=== PATIENT | male | born 1935 | race Two or more races ===

== ENCOUNTER 2017-09-04 15:11 | Inpatient (IN) | payer OTHER, MEDICARE ==
[~2017-09-04] VITALS: Ht 172.7 cm; Wt 98.0 kg
[~2017-09-04 15:11] MED LIST: FUROSEMIDE20 M1 ORAL; METFORMIN HCL500 M1 ORAL; TAMSULOSIN HCL0.4 MG ORAL
--- NOTE | 2017-09-04 15:18 | Emergency Room Report ---
History of Present Illness General Chief Complaint: Chest Pain Source: Patient Present Illness HPI Patient is a 82-year-old male who presented after increased chest discomfort. Patient had gradual onset of symptoms. Patient had reportedly had intermittent chest pain. This had been present for approximately one week. Patient prior history of coronary artery disease as well as CABG and congestive heart failure. He reportedly takes diuretics. The patient been under treatment with antibiotics for a left foot infection.Patient was noted to have recent hospitalization for influenza at [facility] and had been hospitalized for approximately one week on BiPAP. The patient been noted to have increased leg swelling since hospitalization. He had recently been started on Lasix. Patient had been on antibiotics while hospitalized and had subsequently been given doxycycline after podiatry noticed a wound to his left leg. Allergies: Coded Allergies: No Known Allergies (Unverified , 09/04/17) Patient History Past Medical History: see triage record Reviewed Nursing Documentation: PMH: Agreed, PSxH: Agreed Nursing Documentation-PM Past Medical History: No Stated History Hx Diabetes: Yes Review of Systems All Other Systems: negative except mentioned in HPI Physical Exam Vital Signs Date Time Temp Pulse Resp B/P (MAP) Pulse Ox O2 Delivery O2 Flow Rate FiO2 09/04/17 15:07 98.1 63 18 101/52 96 Room Air Sp02 EP Interpretation: reviewed, normal General Appearance: normal inspection, well appearing, no apparent distress, alert, GCS 15 Head: atraumatic ENT: normal ENT inspection, hearing grossly normal, normal voice Neck: normal inspection, full range of motion, supple, no bony tend Respiratory: normal inspection, no retraction, rales Cardiovascular #1: irregularly irregular, edema - 3+ edema Gastrointestinal: normal inspection, normal bowel sounds, non tender, soft, no guarding, no hernia Genitourinary: no CVA tenderness Musculoskeletal: normal inspection, back normal, normal range of motion Neurologic: normal inspection, alert, oriented x3, responsive, executive producer promos III-XII nml as tested, speech normal Psychiatric: normal inspection, judgement/insight normal, mood/affect normal Skin: normal color, no rash, other - erythema to left leg Medical Decision Making Diagnostic Impression: Primary Impression: Chest pain Additional Impressions: CHF (congestive heart failure) Left leg cellulitis Venous stasis ulcer ER Course Patient presented for chest pain. Differential diagnosis included but was not limited to acute coronary syndrome, pulmonary embolism, pneumonia, aortic dissection, shingles, pneumothorax, aortic dissection, esophageal rupture, pericarditis. Because of complexity of patient's case laboratory testing and imaging studies were ordered.The patient given aspirin by EMS. The patient denies any current chest pain. He was noted to have increased work of breathing. EKG interpreted by me showed atrial fibrillation with a rate of [address] changes. There is noted to be some nonspecific ST changes consistent with dig effectThe patient was given IV diuretics for presumed congestive heart failure. Laboratory testing showed negative troponin as well as a markedly elevated BNP. Patient noted have borderline blood pressure. The patient was given IV Lasix with some improvement. Patient was discussed with Dr. Murray for Dr. Mckeon for inpatient management. Labs Test 09/04/17 15:25 White Blood Count 5.0 K/UL (4.8-10.8) Red Blood Count 4.10 M/UL (4.70-6.10) Hemoglobin 12.3 G/DL (14.2-18.0) Hematocrit 38.5 % (42.0-52.0) Mean Corpuscular Volume 94 FL (80-99) Mean Corpuscular Hemoglobin 30.0 PG (27.0-31.0) Mean Corpuscular Hemoglobin Concent 32.0 G/DL (32.0-36.0) Red Cell Distribution Width 13.6 % (11.6-14.8) Platelet Count 107 K/UL (150-450) Mean Platelet Volume 6.5 FL (6.5-10.1) Neutrophils (%) (Auto) 65.7 % (45.0-75.0) Lymphocytes (%) (Auto) 20.0 % (20.0-45.0) Monocytes (%) (Auto) 10.6 % (1.0-10.0) Eosinophils (%) (Auto) 3.2 % (0.0-3.0) Basophils (%) (Auto) 0.5 % (0.0-2.0) Sodium Level 137 MMOL/L (136-145) Potassium Level 5.2 MMOL/L (3.5-5.1) Chloride Level 98 MMOL/L (98-107) Carbon Dioxide Level 32 MMOL/L (21-32) Anion Gap 7 mmol/L (5-15) Blood Urea Nitrogen 53 mg/dL (7-18) Creatinine 1.9 MG/DL (0.55-1.30) Estimat Glomerular Filtration Rate mL/min (>60) Glucose Level 107 MG/DL (74-106) Calcium Level 8.5 MG/DL (8.5-10.1) Total Bilirubin 0.4 MG/DL (0.2-1.0) Aspartate Amino Transf (AST/SGOT) 16 U/L (15-37) Alanine Aminotransferase (ALT/SGPT) 18 U/L (12-78) Alkaline Phosphatase 86 U/L (46-116) Total Creatine Kinase 29 U/L (26-308) Creatine Kinase MB 0.9 NG/ML (0.0-3.6) Creatine Kinase MB Relative Index 3.1 Troponin I 0.016 ng/mL (0.000-0.056) Pro-B-Type Natriuretic Peptide 3780 pg/mL (0-125) Total Protein 7.2 G/DL (6.4-8.2) Albumin 3.4 G/DL (3.4-5.0) Globulin 3.8 g/dL Albumin/Globulin Ratio 0.9 (1.0-2.7) Digoxin Level 1.9 NG/ML (0.5-2.0) Last Vital Signs Date Time Temp Pulse Resp B/P (MAP) Pulse Ox O2 Delivery O2 Flow Rate FiO2 09/04/17 15:07 98.1 63 18 101/52 96 Room Air Status: unchanged Disposition: ADMITTED INPATIENT Condition: Stable David Bledsoe Sep 04, 2017 15:18
[2017-09-04] MEDS ORDERED: Ascorbic Acid 500mg tab ORAL SCH (15:30)
[2017-09-04 15:37] LABS: BASOPHILS % (AUTO) 0.5 % (0.0-2.0); EOSINOPHILS % (AUTO) 3.2 % (0.0-3.0); HEMATOCRIT 38.5 % (42.0-52.0); HEMOGLOBIN 12.3 G/DL (14.2-18.0); MEAN CORPUSCULAR VOLUME 94 FL (80-99); MONOCYTES % (AUTO) 10.6 % (1.0-10.0); NEUTROPHILS % (AUTO) 65.7 % (45.0-75.0); PLATELET COUNT 107 K/UL (150-450); RED CELL DISTRIBUTION WIDTH 13.6 % (11.6-14.8)
[2017-09-04 16:00] VITALS: BP 94/52
[2017-09-04 16:14] LABS: ANION GAP 7 mmol/L (5-15); BLOOD UREA NITROGEN 53 mg/dL (7-18); CALCIUM 8.5 MG/DL (8.5-10.1); CARBON DIOXIDE 32 MMOL/L (21-32); CHLORIDE 98 MMOL/L (98-107); CREATININE 1.9 MG/DL (0.55-1.30); POTASSIUM 5.2 MMOL/L (3.5-5.1); SODIUM 137 MMOL/L (136-145)
[2017-09-04 16:30] VITALS: BP 95/63
[2017-09-04 16:34] LABS: ALANINE AMINOTRANSFERASE 18 U/L (12-78); ALBUMIN 3.4 G/DL (3.4-5.0); ALBUMIN/GLOBULIN RATIO 0.9 (1.0-2.7); ALKALINE PHOSPHATASE 86 U/L (46-116); ASPARTATE AMINO TRANSFERASE 16 U/L (15-37); BILIRUBIN,TOTAL 0.4 MG/DL (0.2-1.0); CKMB 0.9 NG/ML (0.0-3.6); CREATINE KINASE 29 U/L (26-308)
[2017-09-04 18:42] VITALS: BP 100/78
[2017-09-04] MEDS ORDERED: AMITIZA24 MCG ORAL (18:56)
[2017-09-04] MEDS ORDERED: traMADol 50mg tab ORAL PRN (20:00)
[2017-09-04] MEDS ORDERED: Albuterol/Ipratropium 3ml neb HHN PRN (20:00)
[2017-09-04] MEDS ORDERED: Miralax 17gm pkt ORAL PRN (20:00)
[2017-09-04] MEDS ORDERED: Mylanta II UD 30ml ORAL PRN (20:00)
--- NOTE | 2017-09-04 20:35 | History and Physical ---
History of Present Illness General Date patient seen: Sep 04, 2017 Reason for Hospitalization: Chest Pain Present Illness HPI This is a 82 year old male with past medical history of chronic afib, CAD s/p CABG, HTN, DM, HLD, recent influenza infection presents with chest pain and worsening bilateral lower extremity redness and swelling. States pain is substernal and associated with shortness of breath. patient was recently hospitalized at [facility] 08/10/17-08/19/17 with influenza infection and respiratory failure, requiring intubation. patient with blistering of left foot, seen by podiatry yesterday and started on antibiotics. Notes worsening edema of the left foot > right with significant pain. No fevers, chills, nausea, vomiting or abdominal pain. Of note, patient underwent LHC in 04/2017 showinSevere atherosclerotic heart disease. A: Complete occlusion of the left anterior descending. B: Complete occlusion of the proximal circumflex coronary artery. C: Complete occlusion of the proximal right coronary artery. Graft angiography:. A-Widely patent left internal mammary graft to the left anterior descending. B: Widely patent saphenous vein graft to the posterior descending coronary artery. C: Widely patent saphenous vein graft to the obtuse marginal branch of the left circumflex coronary artery. D: Very small grafts to a small diagonal were also identified Home medication per [facility] record: HOME MEDICATIONS: Current Outpatient Prescriptions Medication Sig olmesartan (BENICAR) 5 mg oral tablet Take 1 tablet by mouth daily. fluticasone-salmeterol (ADVAIR) 250-50 mcg/dose powder for inhalation Inhale 1 puff 2 times daily. guaiFENesin (MUCINEX) 600 mg Ta12 SR tablet Take 1 tablet by mouth 2 times daily. METOprolol (LOPRESSOR) 25 mg oral tablet Take 1 tablet by mouth 2 times daily (with meals). ibuprofen (MOTRIN) 600 mg oral tablet Take 1 tablet by mouth 3 times daily. Take with food. LUBIPROSTONE (AMITIZA PO) DUTASTERIDE (AVODART PO) TAMSULOSIN HCL (FLOMAX PO) dabigatran etexilate (PRADAXA) 150 mg oral cap Take 150 mg by mouth 2 times daily. digoxin (LANOXIN) 250 mcg oral tablet Take 250 mcg by mouth daily. aspirin (ECOTRIN) 81 mg EC tablet Take 81 mg by mouth daily. meloxicam (MOBIC) 15 mg oral tablet Take 15 mg by mouth daily. rosuvastatin (CRESTOR) 5 mg oral tablet Take 5 mg by mouth daily. metFORMIN (GLUCOPHAGE XR) 750 mg XR tablet Take 750 mg by mouth daily. Take with meals. liraglutide 0.6 mg/0.1 mL (18 mg/3 mL) PnIj sitaGLIPtin (JANUVIA) 100 mg oral tablet Take 100 mg by mouth daily. gabapentin (NEURONTIN) 300 mg capsule Take 300 mg by mouth 3 times daily. HYDROcodone-acetaminophen 10-325 mg (NORCO) 10-325 mg oral tablet Take 1 tablet by mouth every 6 hours as needed. DULoxetine (CYMBALTA) [address] capsule Take 60 mg by mouth daily. escitalopram oxalate (LEXAPRO) 20 mg oral tablet Take 20 mg by mouth daily. zolpidem (AMBIEN) 10 mg oral tablet Take 10 mg by mouth nightly. tadalafil (CIALIS) 20 mg oral tablet Take 20 mg by mouth once as needed for Erectile Dysfunction. POLYETHYLENE GLYCOL 3350 (DULCOLAX BALANCE PO) Allergies: Coded Allergies: No Known Allergies (Unverified , 09/04/17) Medication History Scheduled Furosemide* (Lasix*), 20 MG ORAL DAILY, (Reported) Metformin Hcl* (Metformin Hcl*), 500 MG ORAL TWICE A DAY, (Reported) Tamsulosin Hcl (Tamsulosin Hcl*), 0.4 MG ORAL BEDTIME, (Reported) Scheduled PRN Lubiprostone (Amitiza*), 24 MCG ORAL DAILY PRN for Constipation, (Reported) Patient History Healthcare decision maker Resuscitation status Advanced Directive on File Review of Systems All Other Systems: negative except mentioned in HPI Physical Exam General Appearance: no apparent distress, lethargic, overweight HEENT: normocephalic, EOMI Respiratory/Chest: accessory muscle use, crackles/rales Cardiovascular/Chest: normal rate, regular rhythm, regularly irregular, JVD, irregularly irregular Abdomen: non tender - left lef with erythemtous lesion, with some discharge, soft, hypoactive bowel sounds Extremities: moderate edema, pitting Skin Exam: rash Neurologic: no motor/sensory deficits, alert, oriented x 3 Last 24 Hour Vital Signs Date Time Temp Pulse Resp B/P (MAP) Pulse Ox O2 Delivery O2 Flow Rate FiO2 09/04/17 18:42 97.9 59 19 100/78 98 Room Air 09/04/17 16:30 62 20 95/63 97 Room Air 09/04/17 16:00 98.4 62 21 94/52 93 Room Air 09/04/17 15:30 62 19 Room Air 09/04/17 15:07 98.1 63 18 101/52 96 Room Air Laboratory Tests Test 09/04/17 15:25 White Blood Count 5.0 K/UL (4.8-10.8) Red Blood Count 4.10 M/UL (4.70-6.10) L Hemoglobin 12.3 G/DL (14.2-18.0) L Hematocrit 38.5 % (42.0-52.0) L Mean Corpuscular Volume 94 FL (80-99) Mean Corpuscular Hemoglobin 30.0 PG (27.0-31.0) Mean Corpuscular Hemoglobin Concent 32.0 G/DL (32.0-36.0) Red Cell Distribution Width 13.6 % (11.6-14.8) Platelet Count 107 K/UL (150-450) L Mean Platelet Volume 6.5 FL (6.5-10.1) Neutrophils (%) (Auto) 65.7 % (45.0-75.0) Lymphocytes (%) (Auto) 20.0 % (20.0-45.0) Monocytes (%) (Auto) 10.6 % (1.0-10.0) H Eosinophils (%) (Auto) 3.2 % (0.0-3.0) H Basophils (%) (Auto) 0.5 % (0.0-2.0) Sodium Level 137 MMOL/L (136-145) Potassium Level 5.2 MMOL/L (3.5-5.1) H Chloride Level 98 MMOL/L (98-107) Carbon Dioxide Level 32 MMOL/L (21-32) Anion Gap 7 mmol/L (5-15) Blood Urea Nitrogen 53 mg/dL (7-18) H Creatinine 1.9 MG/DL (0.55-1.30) H Estimat Glomerular Filtration Rate mL/min (>60) Glucose Level 107 MG/DL (74-106) H Calcium Level 8.5 MG/DL (8.5-10.1) Total Bilirubin 0.4 MG/DL (0.2-1.0) Aspartate Amino Transf (AST/SGOT) 16 U/L (15-37) Alanine Aminotransferase (ALT/SGPT) 18 U/L (12-78) Alkaline Phosphatase 86 U/L (46-116) Total Creatine Kinase 29 U/L (26-308) Creatine Kinase MB 0.9 NG/ML (0.0-3.6) Creatine Kinase MB Relative Index 3.1 Troponin I 0.016 ng/mL (0.000-0.056) Pro-B-Type Natriuretic Peptide 3780 pg/mL (0-125) H Total Protein 7.2 G/DL (6.4-8.2) Albumin 3.4 G/DL (3.4-5.0) Globulin 3.8 g/dL Albumin/Globulin Ratio 0.9 (1.0-2.7) L Digoxin Level 1.9 NG/ML (0.5-2.0) Height (Feet): 5 Height (Inches): 9.00 Weight (Pounds): 180 Medications Current Medications Medications (Trade) Dose Ordered Sig/Sara Route PRN Reason Start Time Stop Time Status Last Admin Dose Admin Acetaminophen (Tylenol) 650 mg Q4H PRN ORAL Mild Pain (Pain Scale 1-3) 09/04/17 20:00 10/04/17 19:59 Al Hydroxide/Mg Hydroxide (Mylanta II) 30 ml Q6H PRN ORAL dyspepsia 09/04/17 20:00 10/04/17 19:59 Albuterol/ Ipratropium (Albuterol/ Ipratropium) 3 ml Q4H PRN HHN Shortness of Breath 09/04/17 20:00 09/09/17 19:59 Dextrose (Dextrose 50%) STAT PRN IV Hypoglycemia 09/04/17 20:00 10/04/17 19:59 Docusate Sodium (Colace) 100 mg EVERY 12 HOURS ORAL 09/04/17 21:00 10/04/17 20:59 Furosemide (Lasix) 20 mg EVERY 12 HOURS IV 09/04/17 21:00 10/04/17 20:59 Heparin Sodium (Porcine) (Heparin 5000 units/ml) 5,000 units EVERY 12 HOURS SUBQ 09/04/17 21:00 10/04/17 20:59 Insulin Aspart (NovoLOG) BEFORE MEALS AND HS SUBQ 09/04/17 21:00 10/04/17 20:59 UNV Ondansetron HCl (Zofran) 4 mg Q6H PRN IVP Nausea & Vomiting 09/04/17 20:00 10/04/17 19:59 Polyethylene Glycol (Miralax) 17 gm DAILYPRN PRN ORAL Constipation 09/04/17 20:00 10/04/17 19:59 Tamsulosin HCl (Flomax) 0.4 mg BEDTIME ORAL 09/04/17 21:00 10/04/17 20:59 Tramadol HCl (Ultram) 50 mg Q4H PRN ORAL pain 4-10 09/04/17 20:00 09/11/17 19:59 Vancomycin HCl (Vanco rx to dose) 1 ea DAILY PRN MISC Per rx protocol 09/04/17 20:00 10/04/17 19:59 UNV Assessment/Plan Assessment/Plan # acute on chronic CHF #lower extremity cellulitis # chest pain #DM # HLD #HTN now presenting with hypotension #Obesity - admit inpatient - tele - serial trop - vancomycin - lasix 20mg IV daily - strict I&Os - daily weights - cardiology consulted - 2d echo - ID consult - blood cx - monitor blood glucose level - ISS - diabetic cardiac diet - hold antihypertensives - heparin subq Chase Murray M.D. Sep 04, 2017 20:35
[2017-09-04 21:15] VITALS: BP 87/55
[2017-09-04] MEDS ORDERED: Vancomycin 1.5 GM/D5W 250ML IVPB ONE (22:00)
[2017-09-04] MEDS: Tamsulosin 0.4mg cap ORAL SCH (22:46)
[2017-09-04] MEDS: Docusate 100mg cap ORAL SCH (22:46)
[2017-09-04] MEDS: NovoLOG Insulin Flexpen SUBQ SCH (22:52)
[2017-09-04] MEDS: Heparin 5000 units/ml inj SUBQ SCH (22:52)
[2017-09-05] VITALS: BP 84/46
[2017-09-05 04:23] VITALS: BP 82/40
[2017-09-05] MEDS: NovoLOG Insulin Flexpen SUBQ SCH ×4 (06:26→23:37)
[2017-09-05 08:00] VITALS: BP 82/45
[2017-09-05] MEDS: Heparin 5000 units/ml inj SUBQ SCH (09:00)
[2017-09-05] MEDS: Docusate 100mg cap ORAL SCH ×2 (09:10→23:40)
--- NOTE | 2017-09-05 09:33 | Diagnostic Imaging Report ---
Indication: Reason For Exam: SOB. Technique: XRAY Chest 1v. Comparison: None Findings: The heart is normal in size. Linear density is noted in the left upper lung. The remainder the lungs are clear. No pleural fluid. There is atherosclerotic change of the aorta. The bones are unremarkable. Impression: Atherosclerotic change. Scarring or atelectasis in the left upper lung. Otherwise negative.
[2017-09-05 10:59] LABS: HEMOGLOBIN 11.1 G/DL (14.2-18.0); MEAN CORPUSCULAR VOLUME 94 FL (80-99); PLATELET COUNT 97 K/UL (150-450); RED BLOOD COUNT 3.72 M/UL (4.70-6.10); RED CELL DISTRIBUTION WIDTH 13.7 % (11.6-14.8); WHITE BLOOD COUNT 3.8 K/UL (4.8-10.8)
[2017-09-05 11:27] LABS: ANION GAP 3 mmol/L (5-15); BLOOD UREA NITROGEN 48 mg/dL (7-18); CALCIUM 8.3 MG/DL (8.5-10.1); CARBON DIOXIDE 34 MMOL/L (21-32); CHLORIDE 100 MMOL/L (98-107); CHOLESTEROL 110 MG/DL (< 200); CREATININE 1.5 MG/DL (0.55-1.30); HDL CHOLESTEROL 41 MG/DL (40-60); SODIUM 137 MMOL/L (136-145); TRIGLYCERIDES 90 MG/DL (30-150)
[2017-09-05 12:00] VITALS: BP 109/78
--- NOTE | 2017-09-05 12:19 | Consultation ---
Consult Note Consult Note asked to evalfor high BUN and Cr Patient is a 82-year-old male who presented after increased chest discomfort. Patient had gradual onset of symptoms. Patient had reportedly had intermittent chest pain. This had been present for approximately one week. Patient prior history of coronary artery disease as well as CABG and congestive heart failure. He reportedly takes diuretics. The patient been under treatment with antibiotics for a left foot infection.Patient was noted to have recent hospitalization for influenza at [facility] and had been hospitalized for approximately one week on BiPAP. The patient been noted to have increased leg swelling since hospitalization. He had recently been started on Lasix. Patient had been on antibiotics while hospitalized and had subsequently been given doxycycline after podiatry noticed a wound to his left leg. admitted with the diagnosis of: Chest pain CHF (congestive heart failure) Left leg cellulitis Venous stasis ulcer seen interviewed examined data reviewed Assessment/Plan Renal failure, likely pre Renal Acute on chronic CHF Atrial Fib with slow Vent rate Lower extremity cellulitis Chest pain DM HLD HTN now presenting with hypotension Obesity Plan: Optimize cardiac and pulmonary status monitor renal parameters and lytes avoid nephrotoxics BRIAN SIFUENTES Sep 05, 2017 12:19
--- NOTE | 2017-09-05 13:18 | Cardiac Electrophysiology PN ---
Subjective Subjective Fib, CP, CHF, CABG. Cellulitis Dictated [id number] Objective Last 24 Hour Vital Signs Date Time Temp Pulse Resp B/P (MAP) Pulse Ox O2 Delivery O2 Flow Rate FiO2 09/05/17 08:00 97.6 70 19 82/45 98 Nasal Cannula 2.0 09/05/17 04:23 96.8 68 18 82/40 94 Nasal Cannula 09/05/17 04:00 55 09/05/17 00:00 53 09/05/17 00:00 96.8 58 18 84/46 100 Room Air 09/04/17 21:18 60 09/04/17 21:15 97.0 61 22 87/55 99 Room Air 21 09/04/17 21:00 58 22 86/46 98 Room Air 09/04/17 18:42 97.9 59 19 100/78 98 Room Air 09/04/17 16:30 62 20 95/63 97 Room Air 09/04/17 16:00 98.4 62 21 94/52 93 Room Air 09/04/17 15:30 62 19 Room Air 09/04/17 15:07 98.1 63 18 101/52 96 Room Air Intake and Output 09/04/17 09/05/17 19:00 07:00 Intake Total 250 ml Output Total 600 ml 725 ml Balance -600 ml -475 ml Intake IV Total 250 ml Output Urine Total 600 ml 725 ml # Voids 4 6 Laboratory Tests Test 09/04/17 15:25 09/05/17 09:10 White Blood Count 5.0 K/UL (4.8-10.8) 3.8 K/UL (4.8-10.8) L Red Blood Count 4.10 M/UL (4.70-6.10) L 3.72 M/UL (4.70-6.10) L Hemoglobin 12.3 G/DL (14.2-18.0) L 11.1 G/DL (14.2-18.0) L Hematocrit 38.5 % (42.0-52.0) L 35.0 % (42.0-52.0) L Mean Corpuscular Volume 94 FL (80-99) 94 FL (80-99) Mean Corpuscular Hemoglobin 30.0 PG (27.0-31.0) 29.8 PG (27.0-31.0) Mean Corpuscular Hemoglobin Concent 32.0 G/DL (32.0-36.0) 31.7 G/DL (32.0-36.0) L Red Cell Distribution Width 13.6 % (11.6-14.8) 13.7 % (11.6-14.8) Platelet Count 107 K/UL (150-450) L 97 K/UL (150-450) L Mean Platelet Volume 6.5 FL (6.5-10.1) 7.2 FL (6.5-10.1) Neutrophils (%) (Auto) 65.7 % (45.0-75.0) % (45.0-75.0) Lymphocytes (%) (Auto) 20.0 % (20.0-45.0) % (20.0-45.0) Monocytes (%) (Auto) 10.6 % (1.0-10.0) H % (1.0-10.0) Eosinophils (%) (Auto) 3.2 % (0.0-3.0) H % (0.0-3.0) Basophils (%) (Auto) 0.5 % (0.0-2.0) % (0.0-2.0) Sodium Level 137 MMOL/L (136-145) 137 MMOL/L (136-145) Potassium Level 5.2 MMOL/L (3.5-5.1) H 5.0 MMOL/L (3.5-5.1) Chloride Level 98 MMOL/L (98-107) 100 MMOL/L (98-107) Carbon Dioxide Level 32 MMOL/L (21-32) 34 MMOL/L (21-32) H Anion Gap 7 mmol/L (5-15) 3 mmol/L (5-15) L Blood Urea Nitrogen 53 mg/dL (7-18) H 48 mg/dL (7-18) H Creatinine 1.9 MG/DL (0.55-1.30) H 1.5 MG/DL (0.55-1.30) H Estimat Glomerular Filtration Rate mL/min (>60) mL/min (>60) Glucose Level 107 MG/DL (74-106) H 127 MG/DL (74-106) H Calcium Level 8.5 MG/DL (8.5-10.1) 8.3 MG/DL (8.5-10.1) L Total Bilirubin 0.4 MG/DL (0.2-1.0) Aspartate Amino Transf (AST/SGOT) 16 U/L (15-37) Alanine Aminotransferase (ALT/SGPT) 18 U/L (12-78) Alkaline Phosphatase 86 U/L (46-116) Total Creatine Kinase 29 U/L (26-308) Creatine Kinase MB 0.9 NG/ML (0.0-3.6) Creatine Kinase MB Relative Index 3.1 Troponin I 0.016 ng/mL (0.000-0.056) 0.016 ng/mL (0.000-0.056) Pro-B-Type Natriuretic Peptide 3780 pg/mL (0-125) H Total Protein 7.2 G/DL (6.4-8.2) Albumin 3.4 G/DL (3.4-5.0) Globulin 3.8 g/dL Albumin/Globulin Ratio 0.9 (1.0-2.7) L Digoxin Level 1.9 NG/ML (0.5-2.0) Differential Total Cells Counted 100 Neutrophils % (Manual) 58 % (45-75) Lymphocytes % (Manual) 25 % (20-45) Monocytes % (Manual) 12 % (1-10) H Eosinophils % (Manual) 5 % (0-3) H Basophils % (Manual) 0 % (0-2) Band Neutrophils 0 % (0-8) Platelet Estimate Decreased L Platelet Morphology Normal Hypochromasia 1+ Anisocytosis 1+ Hemoglobin A1c 6.2 % (4.3-6.0) H Magnesium Level 1.7 MG/DL (1.8-2.4) L Triglycerides Level 90 MG/DL (30-150) Cholesterol Level 110 MG/DL (< 200) LDL Cholesterol 66 mg/dL (<100) HDL Cholesterol 41 MG/DL (40-60) Cholesterol/HDL Ratio 2.7 (3.3-4.4) L Thyroid Stimulating Hormone (TSH) 0.629 uiU/mL (0.358-3.740) LUIS MANUEL PATHAK Sep 05, 2017 13:18
[2017-09-05 15:20] LABS: APPEARANCE,URINE CLEAR; BILIRUBIN, URINE NEGATIVE (NEGATIVE); COLOR,URINE PALE YELLOW; GLUCOSE, URINE (UA) NEGATIVE (NEGATIVE); KETONES,URINE NEGATIVE (NEGATIVE); LEUKOCYTE ESTERASE ,URINE NEGATIVE (NEGATIVE); NITRITE,URINE NEGATIVE (NEGATIVE); PH,URINE 6 (4.5-8.0); PROTEIN,URINE NEGATIVE (NEGATIVE); UROBILINOGEN,URINE NORMAL MG/DL (0.0-1.0)
[2017-09-05 16:00] VITALS: BP 106/51
--- NOTE | 2017-09-05 17:28 | Infectious Diseases Prog Note ---
Assessment/Plan Assessment/Plan Full consult dictated: A) 1) left leg cellulitis, ? infected leg ankle wound, ? osteo 2) edema 3) pmh noted 4) allergies - negative P) 1) vancomycin and cefepime 2) check wc, sr, labs and x-ray 3) thanks Subjective Allergies: Coded Allergies: No Known Allergies (Unverified , 09/04/17) Objective Vital Signs Last 24 Hour Vital Signs Date Time Temp Pulse Resp B/P (MAP) Pulse Ox O2 Delivery O2 Flow Rate FiO2 09/05/17 12:00 97.8 85 19 109/78 97 Nasal Cannula 2.0 09/05/17 12:00 75 09/05/17 08:00 81 09/05/17 08:00 97.6 70 19 82/45 98 Nasal Cannula 2.0 09/05/17 04:23 96.8 68 18 82/40 94 Nasal Cannula 09/05/17 04:00 55 09/05/17 00:00 53 09/05/17 00:00 96.8 58 18 84/46 100 Room Air 09/04/17 21:18 60 09/04/17 21:15 97.0 61 22 87/55 99 Room Air 21 09/04/17 21:00 58 22 86/46 98 Room Air 09/04/17 18:42 97.9 59 19 100/78 98 Room Air Height (Feet): 5 Height (Inches): 8.00 Weight (Pounds): 216 Laboratory Tests Test 09/05/17 09:10 09/05/17 12:20 White Blood Count 3.8 K/UL (4.8-10.8) L Red Blood Count 3.72 M/UL (4.70-6.10) L Hemoglobin 11.1 G/DL (14.2-18.0) L Hematocrit 35.0 % (42.0-52.0) L Mean Corpuscular Volume 94 FL (80-99) Mean Corpuscular Hemoglobin 29.8 PG (27.0-31.0) Mean Corpuscular Hemoglobin Concent 31.7 G/DL (32.0-36.0) L Red Cell Distribution Width 13.7 % (11.6-14.8) Platelet Count 97 K/UL (150-450) L Mean Platelet Volume 7.2 FL (6.5-10.1) Neutrophils (%) (Auto) % (45.0-75.0) Lymphocytes (%) (Auto) % (20.0-45.0) Monocytes (%) (Auto) % (1.0-10.0) Eosinophils (%) (Auto) % (0.0-3.0) Basophils (%) (Auto) % (0.0-2.0) Differential Total Cells Counted 100 Neutrophils % (Manual) 58 % (45-75) Lymphocytes % (Manual) 25 % (20-45) Monocytes % (Manual) 12 % (1-10) H Eosinophils % (Manual) 5 % (0-3) H Basophils % (Manual) 0 % (0-2) Band Neutrophils 0 % (0-8) Platelet Estimate Decreased L Platelet Morphology Normal Hypochromasia 1+ Anisocytosis 1+ Sodium Level 137 MMOL/L (136-145) Potassium Level 5.0 MMOL/L (3.5-5.1) Chloride Level 100 MMOL/L (98-107) Carbon Dioxide Level 34 MMOL/L (21-32) H Anion Gap 3 mmol/L (5-15) L Blood Urea Nitrogen 48 mg/dL (7-18) H Creatinine 1.5 MG/DL (0.55-1.30) H Estimat Glomerular Filtration Rate mL/min (>60) Glucose Level 127 MG/DL (74-106) H Hemoglobin A1c 6.2 % (4.3-6.0) H Calcium Level 8.3 MG/DL (8.5-10.1) L Magnesium Level 1.7 MG/DL (1.8-2.4) L Troponin I 0.016 ng/mL (0.000-0.056) Triglycerides Level 90 MG/DL (30-150) Cholesterol Level 110 MG/DL (< 200) LDL Cholesterol 66 mg/dL (<100) HDL Cholesterol 41 MG/DL (40-60) Cholesterol/HDL Ratio 2.7 (3.3-4.4) L Thyroid Stimulating Hormone (TSH) 0.629 uiU/mL (0.358-3.740) Urine Color Pale yellow Urine Appearance Clear Urine pH 6 (4.5-8.0) Urine Specific [place] 1.005 (1.005-1.035) Urine Protein Negative (NEGATIVE) Urine Glucose (UA) Negative (NEGATIVE) Urine Ketones Negative (NEGATIVE) Urine Occult Blood Negative (NEGATIVE) Urine Nitrite Negative (NEGATIVE) Urine Bilirubin Negative (NEGATIVE) Urine Urobilinogen Normal MG/DL (0.0-1.0) Urine Leukocyte Esterase Negative (NEGATIVE) Urine RBC 0 /HPF (0 - 0) Urine WBC 0-2 /HPF (0 - 0) Urine Squamous Epithelial Cells Occasional /LPF Urine Bacteria Occasional /HPF (NONE) Current Medications Medications (Trade) Dose Ordered Sig/Sara Route PRN Reason Start Time Stop Time Status Last Admin Dose Admin Acetaminophen (Tylenol) 650 mg Q4H PRN ORAL Mild Pain (Pain Scale 1-3) 09/04/17 20:00 10/04/17 19:59 Al Hydroxide/Mg Hydroxide (Mylanta II) 30 ml Q6H PRN ORAL dyspepsia 09/04/17 20:00 10/04/17 19:59 Albuterol/ Ipratropium (Albuterol/ Ipratropium) 3 ml Q4H PRN HHN Shortness of Breath 09/04/17 20:00 09/09/17 19:59 Dextrose (Dextrose 50%) STAT PRN IV Hypoglycemia 09/04/17 20:00 10/04/17 19:59 Docusate Sodium (Colace) 100 mg EVERY 12 HOURS ORAL 09/04/17 21:00 10/04/17 20:59 09/05/17 09:10 Enoxaparin Sodium (Lovenox) 100 mg EVERY 12 HOURS SUBQ 09/05/17 21:00 10/05/17 20:59 Furosemide (Lasix) 40 mg EVERY 12 HOURS IV 09/05/17 21:00 10/05/17 20:59 Insulin Aspart (NovoLOG) BEFORE MEALS AND HS SUBQ 09/04/17 22:00 10/04/17 21:59 09/04/17 22:52 Ondansetron HCl (Zofran) 4 mg Q6H PRN IVP Nausea & Vomiting 09/04/17 20:00 10/04/17 19:59 Polyethylene Glycol (Miralax) 17 gm DAILYPRN PRN ORAL Constipation 09/04/17 20:00 10/04/17 19:59 Tamsulosin HCl (Flomax) 0.4 mg BEDTIME ORAL 09/04/17 21:00 2/19/18 20:59 09/04/17 22:46 Tramadol HCl (Ultram) 50 mg Q4H PRN ORAL pain 4-10 09/04/17 20:00 09/11/17 19:59 Vancomycin HCl (Vanco rx to dose) 1 ea DAILY PRN MISC Per rx protocol 09/04/17 20:00 10/04/17 19:59 Vancomycin/Sodium Chloride 250 ml @ 166.667 mls/hr Q24H IVPB 09/05/17 22:00 09/10/17 21:59 BRUNILDA VO Sep 05, 2017 17:28
--- NOTE | 2017-09-05 19:20 | Internal Med Progress Note ---
Subjective Date of Service: Sep 05, 2017 Physician Name no acute events overnight no chest pain breathing improved No nausea, emesis Chase Murray Attending Physician Robert Rodriguez Current Medications Medications (Trade) Dose Ordered Sig/Sara Route PRN Reason Start Time Stop Time Status Last Admin Dose Admin Acetaminophen (Tylenol) 650 mg Q4H PRN ORAL Mild Pain (Pain Scale 1-3) 09/04/17 20:00 10/04/17 19:59 Al Hydroxide/Mg Hydroxide (Mylanta II) 30 ml Q6H PRN ORAL dyspepsia 09/04/17 20:00 10/04/17 19:59 Albuterol/ Ipratropium (Albuterol/ Ipratropium) 3 ml Q4H PRN HHN Shortness of Breath 09/04/17 20:00 09/09/17 19:59 Cefepime HCl 1 gm/ Dextrose 50 ml @ 100 mls/hr Q24HRS IVPB 09/05/17 18:30 09/12/17 23:59 09/05/17 18:37 Dextrose (Dextrose 50%) STAT PRN IV Hypoglycemia 09/04/17 20:00 10/04/17 19:59 Docusate Sodium (Colace) 100 mg EVERY 12 HOURS ORAL 09/04/17 21:00 10/04/17 20:59 09/05/17 09:10 Enoxaparin Sodium (Lovenox) 100 mg EVERY 12 HOURS SUBQ 09/05/17 21:00 10/05/17 20:59 Furosemide (Lasix) 40 mg EVERY 12 HOURS IV 09/05/17 21:00 10/05/17 20:59 Insulin Aspart (NovoLOG) BEFORE MEALS AND HS SUBQ 09/04/17 22:00 10/04/17 21:59 09/04/17 22:52 Ondansetron HCl (Zofran) 4 mg Q6H PRN IVP Nausea & Vomiting 09/04/17 20:00 10/04/17 19:59 Polyethylene Glycol (Miralax) 17 gm DAILYPRN PRN ORAL Constipation 09/04/17 20:00 10/04/17 19:59 Tamsulosin HCl (Flomax) 0.4 mg BEDTIME ORAL 09/04/17 21:00 10/04/17 20:59 09/04/17 22:46 Tramadol HCl (Ultram) 50 mg Q4H PRN ORAL pain 4-10 09/04/17 20:00 09/11/17 19:59 Vancomycin HCl (Vanco rx to dose) 1 ea DAILY PRN MISC Per rx protocol 09/04/17 20:00 10/04/17 19:59 Vancomycin/Sodium Chloride 250 ml @ 166.667 mls/hr Q24H IVPB 09/05/17 22:00 09/10/17 21:59 Allergies: Coded Allergies: No Known Allergies (Unverified , 09/04/17) Objective Last Vital Signs Date Time Temp Pulse Resp B/P (MAP) Pulse Ox O2 Delivery O2 Flow Rate FiO2 09/05/17 16:00 64 09/05/17 16:00 96.8 20 106/51 100 Nasal Cannula 2.0 09/04/17 21:15 21 General Appearance: WD/WN, no apparent distress, alert EENT: PERRL/EOMI, normal ENT inspection Neck: non-tender, normal alignment, supple Cardiovascular: normal peripheral pulses, normal rate, regularly irregular Respiratory/Chest: chest wall non-tender, lungs clear Abdomen: normal bowel sounds, non tender, soft Edema: moderate edema Neurologic: oriented x 3, responsive Laboratory Tests Test 09/05/17 09:10 09/05/17 12:20 White Blood Count 3.8 K/UL (4.8-10.8) L Red Blood Count 3.72 M/UL (4.70-6.10) L Hemoglobin 11.1 G/DL (14.2-18.0) L Hematocrit 35.0 % (42.0-52.0) L Mean Corpuscular Volume 94 FL (80-99) Mean Corpuscular Hemoglobin 29.8 PG (27.0-31.0) Mean Corpuscular Hemoglobin Concent 31.7 G/DL (32.0-36.0) L Red Cell Distribution Width 13.7 % (11.6-14.8) Platelet Count 97 K/UL (150-450) L Mean Platelet Volume 7.2 FL (6.5-10.1) Neutrophils (%) (Auto) % (45.0-75.0) Lymphocytes (%) (Auto) % (20.0-45.0) Monocytes (%) (Auto) % (1.0-10.0) Eosinophils (%) (Auto) % (0.0-3.0) Basophils (%) (Auto) % (0.0-2.0) Differential Total Cells Counted 100 Neutrophils % (Manual) 58 % (45-75) Lymphocytes % (Manual) 25 % (20-45) Monocytes % (Manual) 12 % (1-10) H Eosinophils % (Manual) 5 % (0-3) H Basophils % (Manual) 0 % (0-2) Band Neutrophils 0 % (0-8) Platelet Estimate Decreased L Platelet Morphology Normal Hypochromasia 1+ Anisocytosis 1+ Sodium Level 137 MMOL/L (136-145) Potassium Level 5.0 MMOL/L (3.5-5.1) Chloride Level 100 MMOL/L (98-107) Carbon Dioxide Level 34 MMOL/L (21-32) H Anion Gap 3 mmol/L (5-15) L Blood Urea Nitrogen 48 mg/dL (7-18) H Creatinine 1.5 MG/DL (0.55-1.30) H Estimat Glomerular Filtration Rate mL/min (>60) Glucose Level 127 MG/DL (74-106) H Hemoglobin A1c 6.2 % (4.3-6.0) H Calcium Level 8.3 MG/DL (8.5-10.1) L Magnesium Level 1.7 MG/DL (1.8-2.4) L Troponin I 0.016 ng/mL (0.000-0.056) Triglycerides Level 90 MG/DL (30-150) Cholesterol Level 110 MG/DL (< 200) LDL Cholesterol 66 mg/dL (<100) HDL Cholesterol 41 MG/DL (40-60) Cholesterol/HDL Ratio 2.7 (3.3-4.4) L Thyroid Stimulating Hormone (TSH) 0.629 uiU/mL (0.358-3.740) Urine Color Pale yellow Urine Appearance Clear Urine pH 6 (4.5-8.0) Urine Specific Lennon 1.005 (1.005-1.035) Urine Protein Negative (NEGATIVE) Urine Glucose (UA) Negative (NEGATIVE) Urine Ketones Negative (NEGATIVE) Urine Occult Blood Negative (NEGATIVE) Urine Nitrite Negative (NEGATIVE) Urine Bilirubin Negative (NEGATIVE) Urine Urobilinogen Normal MG/DL (0.0-1.0) Urine Leukocyte Esterase Negative (NEGATIVE) Urine RBC 0 /HPF (0 - 0) Urine WBC 0-2 /HPF (0 - 0) Urine Squamous Epithelial Cells Occasional /LPF Urine Bacteria Occasional /HPF (NONE) Urine Eosinophils None seen Intake and Output 09/04/17 09/05/17 19:00 07:00 Intake Total 250 ml Output Total 600 ml 725 ml Balance -600 ml -475 ml IV Total 250 ml Output Urine Total 600 ml 725 ml # Voids 4 6 Assessment/Plan Assessment/Plan # acute on chronic CHF #lower extremity cellulitis # chest pain #DM # HLD #HTN now presenting with hypotension #Obesity - tele - serial trop flat - vancomycin and cefepime - lasix 20mg IV daily - strict I&Os - daily weights - cardiology consulted - [id number] BID - 2d echo - ID consult - blood cx - monitor blood glucose level - ISS - diabetic cardiac diet - hold antihypertensives - monitor blood pressure closely - monitor renal indices and electrolytes Chase Murray M.D. Sep 05, 2017 19:20
--- NOTE | 2017-09-05 20:30 | Consultation ---
DATE OF CONSULTATION: 09/05/2017 CARDIOLOGY CONSULTATION CONSULTING PHYSICIAN: Matthew Newman M.D. ATTENDING/REFERRING PHYSICIAN: Robert Rodriguez M.D. REASON FOR CONSULTATION: Chest pain in the patient with history of coronary artery bypass graft as well as hypertension and atrial fibrillation. HISTORY OF PRESENT ILLNESS: The patient is an 82-year-old [place] gentleman with history of hypertension, coronary artery bypass graft many years ago, known history of congestive heart failure and atrial fibrillation, who is usually under the care of Dr. Arthur Crespo. The patient was brought to the emergency room complaining of chest pain for about a week as well as increased lower extremity edema. He also has a left foot ulceration that has been getting worse despite taking diuretics. The patient had recent hospitalization for at [facility], was on BiPAP. The patient was admitted and cardiology consultation was obtained for further evaluation and management. PAST MEDICAL HISTORY: 1. Hypertension. 2. Coronary artery disease, history of coronary artery bypass graft. 3. Congestive heart failure. 4. Chronic atrial fibrillation. 5. Left leg ulcer. FAMILY HISTORY: Noncontributory. SOCIAL HISTORY: He lives at home. Does not smoke or drink alcohol. REVIEW OF SYSTEMS: Performed and was negative other than what was mentioned in history of present illness. PHYSICAL EXAMINATION: VITAL SIGNS: Blood pressure 82/45, pulse 70, respirations 18, and temperature 97.6. HEAD AND NECK: Shows no JVD. LUNGS: Decreased breath sounds. CARDIOVASCULAR: Irregular S1, S2 with no gallop or murmur. His sternotomy scar is intact. ABDOMEN: Soft. EXTREMITIES: 2+ pitting edema as well as ulcer in the left ankle. LABORATORY AND DIAGNOSTIC DATA: His EKG showed atrial fibrillation with slow ventricular response with T-wave abnormalities, history of anterolateral and inferior wall ischemia with rate of 55. Laboratories show digoxin level of 1.9. Sodium 137, potassium 5.0, BUN of 48, creatinine 1.5, and glucose of 127. Troponin is negative x2. White count 3.8, hemoglobin 11.1, hematocrit 35, platelet count of 97,000. ASSESSMENT AND PLAN: 1. Chest pain. The patient has history of coronary artery bypass graft. The electrocardiogram does not show any acute ischemic changes with chronic inferolateral ischemia. Troponins are negative. We will start the patient on aspirin, hold off on beta-jeaneth in view of severe lower extremity edema. We will get an echocardiogram to evaluate for ejection fraction and wall motion abnormality. 2. Atrial fibrillation with slow ventricular response. We will start the patient on Xarelto 20 mg daily. 3. Congestive heart failure, history of bilateral lower extremity edema. Echocardiogram is pending. Increase Lasix to 40 mg intravenous b.i.d. if the blood pressure allows. 4. Diabetes. 5. Foot ulcer. Vancomycin. Thank you very much, Dr. Rodriguez, for allowing me to participate in the care of this patient. Please do not hesitate to contact me if you have any questions regarding my evaluation. Perla Lloyd JOB#: [id number] CC:
[2017-09-05] MEDS: Enoxaparin 100mg Inj SUBQ SCH (21:00)
[2017-09-05] MEDS: Vancomycin 750mg/NS 250ml IVPB SCH (23:39)
[2017-09-05] MEDS: Tamsulosin 0.4mg cap ORAL SCH (23:41)
[2017-09-06 00:51] VITALS: BP 120/50
--- NOTE | 2017-09-06 02:00 | Consultation ---
DATE OF CONSULTATION: 09/05/2017 INFECTIOUS DISEASES CONSULTATION CONSULTING PHYSICIAN: Jean Paul Peter M.D. REFERRING PHYSICIAN: Robert Rodriguez M.D., and Dr. Pina. REASON FOR CONSULTATION: Left leg cellulitis and left ankle wound. CHIEF COMPLAINT COMING TO HOSPITAL: The patient's chief complaint coming to the hospital was CHF exacerbation and hypertension. HISTORY OF PRESENT ILLNESS: This is an 82-year-old male who has history of multiple medical problems, who comes in to the [facility] with CHF and bilateral leg edema. The patient's left leg, however, has cellulitis with redness and warmth, significantly more swelling than the right leg. The patient has an open wound that looks fairly clean on the left ankle. An Infectious Diseases consultation was requested for antibiotic management. The patient will be placed on vancomycin and cefepime since he is also at risk for gram-negatives with an open wound of the foot with cellulitis. MAR was noted. Orders were noted. Notes were reviewed. The patient is not a very good historian because of Portuguese-speaking barrier. PAST MEDICAL HISTORY: Includes history of the following. The patient has past medical history of chronic atrial fibrillation, CAD, history of CABG, hypertension, diabetes, hyperlipidemia, history of recent influenza, history of leg edema. Please see past medical history in medical order. MEDICATIONS: Upon reviewing the MAR, he is on the following medications. He is on vancomycin, he is on Lovenox, Lasix, he is on NovoLog insulin, he is on docusate albuterol, acetaminophen, polyethylene, Zofran, tramadol, and antibiotics of vancomycin and cefepime. ALLERGIES: No known drug allergies. SOCIAL HISTORY: Negative for smoking, alcohol, or drug abuse. FAMILY HISTORY: Noncontributory. Negative for exposure to tuberculosis or cancer. REVIEW OF SYSTEMS: CONSTITUTIONAL: The patient denies generalized weakness or fatigue. No mention of weight loss or fevers at this time. HEAD AND NECK: No head pain or neck pain. CARDIAC: No chest pain or palpitations. No pressors. GASTROINTESTINAL: No nausea, vomiting, or diarrhea. GENITOURINARY: No Toth. PULMONARY: No congestion, shortness of breath, hemoptysis, or secretions. He came in with CHF exacerbation, very mild shortness of breath. SKIN: No rash. EXTREMITIES: There is left leg swelling and extremity pain, left ankle wound. NEUROLOGIC: No seizures. PHYSICAL EXAMINATION: GENERAL: Alert, responsive, in no acute distress. VITAL SIGNS: Temperature is 97.8 degrees, pulse 87, respiratory rate 15, blood pressure 109/78, and saturation 97%. He does have low blood pressure initially 82/45 and now it is 109/78. HEAD AND NECK: Oral exam, no thrush. Eye exam, no icterus. Normocephalic. No facial droop. No neck stiffness. Neck is supple. HEART: Regular. No gallop or murmur. ABDOMEN: Soft. Positive bowel sounds. Nontender. LUNGS: Clear bilaterally. No rhonchi or rales. SKIN: No rash. MUSCULOSKELETAL: No evidence of arthritis. Lower extremity, he has bilateral leg edema, his left leg though has redness and warmth. His left ankle wound is clean. Bilateral leg edema, but left leg has redness and warmth compared to the right. PERIPHERAL VASCULAR: No gangrene. LINES: Line sites without phlebitis. GENITOURINARY: No Toth. NEUROLOGIC: Awake and responsive. LABORATORY AND DIAGNOSTIC DATA: Laboratory data as follows. White count 3.8, hemoglobin 11.1, and platelet count 97,000. Creatinine is 1.5. UA was negative. Wound culture is pending. X-rays are pending. Chest x-ray was negative for pneumonia, it did show scarring. UA negative. Creatinine 1.5. ASSESSMENT AND PLAN: 1. The patient has left leg cellulitis with left ankle wound, rule out infection with osteomyelitis. Wound culture was obtained. Continue vancomycin and cefepime to cover left leg cellulitis and possible infected wound and osteomyelitis. Check x-ray. Check sedimentation rate. If sedimentation rate is significantly elevated, we will consider getting MRI. Continue antibiotics of vancomycin and cefepime for now pending wound culture to cover left leg cellulitis with possible infected left ankle wound. 2. Elevated creatinine. 3. Anemia. 4. Thrombocytopenia. 5. Congestive heart failure. 6. Chronic atrial fibrillation. 7. Anticoagulation. 8. Coronary artery disease. 9. Status post coronary artery bypass graft. 10. Hypertension. 11. Diabetes. 12. Hyperlipidemia. 13. History of influenza. 14. MAR was noted. 15. Case discussed with RN. 16. Social history negative. 17. Family history noncontributory. 18. No known allergies. 19. Continue treatment per primary consultants. 20. Skin care protocol. 21. Notes and records were noted. 22. Orders were entered. Jean Paul Peter M.D. DR: EBONY JOB#: [id number] CC:
[2017-09-06 04:37] VITALS: BP 132/62
[2017-09-06] MEDS: NovoLOG Insulin Flexpen SUBQ SCH ×4 (06:30→20:59)
[2017-09-06 07:15] LABS: BASOPHILS % (AUTO) 0.5 % (0.0-2.0); EOSINOPHILS % (AUTO) 4.1 % (0.0-3.0); HEMATOCRIT 37.3 % (42.0-52.0); HEMOGLOBIN 11.9 G/DL (14.2-18.0); LYMPHOCYTES % (AUTO) 18.3 % (20.0-45.0); MEAN CORPUSCULAR VOLUME 94 FL (80-99); MONOCYTES % (AUTO) 11.2 % (1.0-10.0); NEUTROPHILS % (AUTO) 65.9 % (45.0-75.0); PLATELET COUNT 132 K/UL (150-450); RED BLOOD COUNT 3.97 M/UL (4.70-6.10); RED CELL DISTRIBUTION WIDTH 13.3 % (11.6-14.8); WHITE BLOOD COUNT 4.9 K/UL (4.8-10.8)
[2017-09-06 07:40] LABS: ANION GAP 3 mmol/L (5-15); BLOOD UREA NITROGEN 35 mg/dL (7-18); CALCIUM 8.7 MG/DL (8.5-10.1); CARBON DIOXIDE 38 MMOL/L (21-32); CHLORIDE 99 MMOL/L (98-107); CHOLESTEROL 126 MG/DL (< 200); CREATININE 1.3 MG/DL (0.55-1.30); HDL CHOLESTEROL 43 MG/DL (40-60); POTASSIUM 4.8 MMOL/L (3.5-5.1); SODIUM 140 MMOL/L (136-145); TRIGLYCERIDES 126 MG/DL (30-150)
[2017-09-06 08:00] VITALS: BP 99/51
[2017-09-06] MEDS: Docusate 100mg cap ORAL SCH ×2 (08:30→17:15)
[2017-09-06] MEDS: Enoxaparin 100mg Inj SUBQ SCH ×2 (08:32→20:59)
[2017-09-06 12:00] VITALS: BP 114/54
--- NOTE | 2017-09-06 12:21 | General Progress Note ---
Subjective Date patient seen: Sep 06, 2017 Time patient seen: 12:21 Allergies: Coded Allergies: No Known Allergies (Unverified , 09/04/17) Objective Last 24 Hour Vital Signs Date Time Temp Pulse Resp B/P (MAP) Pulse Ox O2 Delivery O2 Flow Rate FiO2 09/06/17 08:00 97.7 94 20 99/51 94 Nasal Cannula 2.0 09/06/17 04:37 97.0 81 19 132/62 99 Nasal Cannula 09/06/17 04:00 81 09/06/17 00:51 97.9 81 19 120/50 97 Nasal Cannula 09/06/17 00:00 83 09/05/17 20:00 90 09/05/17 16:00 64 09/05/17 16:00 96.8 84 20 106/51 100 Nasal Cannula 2.0 Intake and Output 09/05/17 09/06/17 19:00 07:00 Intake Total 750 ml Output Total 900 ml 3000 ml Balance -150 ml -3000 ml Intake Oral 750 ml Output Urine Total 900 ml 3000 ml Laboratory Tests 09/06/17 05:00: Urine Eosinophils None seen, Urine Random Sodium 74 09/06/17 05:15: White Blood Count 4.9, Red Blood Count 3.97L, Hemoglobin 11.9L, Hematocrit 37.3L , Mean Corpuscular Volume 94, Mean Corpuscular Hemoglobin 30.0, Mean Corpuscular Hemoglobin Concent 32.0, Red Cell Distribution Width 13.3, Platelet Count 132L, Mean Platelet Volume 6.2L, Neutrophils (%) (Auto) 65.9, Lymphocytes (%) (Auto) 18.3L, Monocytes (%) (Auto) 11.2H, Eosinophils (%) (Auto) 4.1H, Basophils (%) (Auto) 0.5, Erythrocyte Sedimentation Rate 67H, Sodium Level 140, Potassium Level 4.8, Chloride Level 99, Carbon Dioxide Level 38H, Anion Gap 3L, Blood Urea Nitrogen 35H, Creatinine 1.3, Estimat Glomerular Filtration Rate , Glucose Level 130H, Calcium Level 8.7, Troponin I 0.018, Pro-B-Type Natriuretic Peptide 3339H, Triglycerides Level 126, Cholesterol Level 126, LDL Cholesterol 75, HDL Cholesterol 43, Cholesterol/HDL Ratio 2.9L, Free Thyroxine 1.05 Height (Feet): 5 Height (Inches): 8.00 Weight (Pounds): 210 Yovani Mcleod M.D. Sep 06, 2017 12:21
--- NOTE | 2017-09-06 12:21 | General Progress Note ---
Assessment/Plan Problem List: (1) Acute on chronic diastolic (congestive) heart failure ICD Codes: I50.33 - Acute on chronic diastolic (congestive) heart failure SNOMED: 97753563, 575028672 (2) Venous stasis ulcer ICD Codes: I83.009 - Varicose veins of unspecified lower extremity with ulcer of unspecified site; L97.909 - Non-pressure chronic ulcer of unspecified part of unspecified lower leg with unspecified severity SNOMED: 359869555, 12913254, 02852751 (3) Left leg cellulitis ICD Codes: L03.116 - Cellulitis of left lower limb SNOMED: 242776097 (4) Chest pain ICD Codes: R07.9 - Chest pain, unspecified SNOMED: 41681275 (5) YUVAL (acute kidney injury) ICD Codes: N17.9 - Acute kidney failure, unspecified SNOMED: 67694202 (6) Cardiorenal syndrome ICD Codes: I13.10 - Hypertensive heart and chronic kidney disease without heart failure, with stage 1 through stage 4 chronic kidney disease, or unspecified chronic kidney disease SNOMED: 110203250 (7) HTN (hypertension) ICD Codes: I10 - Essential (primary) hypertension SNOMED: 08031840 (8) HLD (hyperlipidemia) ICD Codes: E78.5 - Hyperlipidemia, unspecified SNOMED: 30815685 (9) Obesity ICD Codes: E66.9 - Obesity, unspecified SNOMED: 117873682 (10) Hyperkalemia ICD Codes: E87.5 - Hyperkalemia SNOMED: 18121121 Status: stable Assessment/Plan - tele - serial trop flat - vancomycin and cefepime per ID - f/u L ankle x-ray - Surgical consult to assess need for debridement - cont lasix 40mg IV BID - strict I&Os - daily weights - cardiology consulted - BID - 2d echo reviewed--shows moderate pulm HTN, increased RA pressures - ID consulted - blood cx - monitor blood glucose level - ISS - diabetic cardiac diet - hold antihypertensives - monitor blood pressure closely - KIARA - monitor renal indices and electrolytes - PT eval FULL CODE Dispo: likely d/c in 1-2 days, either home w/ hh vs SNF Subjective Date patient seen: Sep 06, 2017 Time patient seen: 12:00 Constitutional: Reports: no symptoms HEENT: Reports: no symptoms Cardiovascular: Reports: no symptoms Respiratory: Reports: no symptoms Gastrointestinal/Abdominal: Reports: no symptoms Genitourinary: Reports: no symptoms Neurologic/Psychiatric: Reports: no symptoms Endocrine: Reports: no symptoms Hematologic/Lymphatic: Reports: no symptoms Allergies: Coded Allergies: No Known Allergies (Unverified , 09/04/17) Subjective No acute o/n events C/o L foot pain. Denies f/c, n/v, d/c, chest pain, SOB. C/o generalized weakness , fatigue Objective Last 24 Hour Vital Signs Date Time Temp Pulse Resp B/P (MAP) Pulse Ox O2 Delivery O2 Flow Rate FiO2 09/06/17 08:00 97.7 94 20 99/51 94 Nasal Cannula 2.0 09/06/17 04:37 97.0 81 19 132/62 99 Nasal Cannula 09/06/17 04:00 81 09/06/17 00:51 97.9 81 19 120/50 97 Nasal Cannula 09/06/17 00:00 83 09/05/17 20:00 90 09/05/17 16:00 64 09/05/17 16:00 96.8 84 20 106/51 100 Nasal Cannula 2.0 Intake and Output 09/05/17 09/06/17 19:00 07:00 Intake Total 750 ml Output Total 900 ml 3000 ml Balance -150 ml -3000 ml Intake Oral 750 ml Output Urine Total 900 ml 3000 ml Laboratory Tests 09/06/17 05:00: Urine Eosinophils None seen, Urine Random Sodium 74 09/06/17 05:15: White Blood Count 4.9, Red Blood Count 3.97L, Hemoglobin 11.9L, Hematocrit 37.3L , Mean Corpuscular Volume 94, Mean Corpuscular Hemoglobin 30.0, Mean Corpuscular Hemoglobin Concent 32.0, Red Cell Distribution Width 13.3, Platelet Count 132L, Mean Platelet Volume 6.2L, Neutrophils (%) (Auto) 65.9, Lymphocytes (%) (Auto) 18.3L, Monocytes (%) (Auto) 11.2H, Eosinophils (%) (Auto) 4.1H, Basophils (%) (Auto) 0.5, Erythrocyte Sedimentation Rate 67H, Sodium Level 140, Potassium Level 4.8, Chloride Level 99, Carbon Dioxide Level 38H, Anion Gap 3L, Blood Urea Nitrogen 35H, Creatinine 1.3, Estimat Glomerular Filtration Rate , Glucose Level 130H, Calcium Level 8.7, Troponin I 0.018, Pro-B-Type Natriuretic Peptide 3339H, Triglycerides Level 126, Cholesterol Level 126, LDL Cholesterol 75, HDL Cholesterol 43, Cholesterol/HDL Ratio 2.9L, Free Thyroxine 1.05 Height (Feet): 5 Height (Inches): 8.00 Weight (Pounds): 210 Objective General: alert, cooperative, no distress, appears stated age Head: normocephalic, without obvious abnormality, atraumatic Eyes: conjunctivae/corneas clear. PERRL, EOM's intact Throat: lips, mucosa, and tongue normal. MMM Neck: supple, symmetrical, trachea midline, and no JVD Lungs: clear to auscultation bilaterally Heart: regular rate and rhythm, S1, S2 normal, no murmur, click, rub or gallop Abdomen: soft, non-tender, non-distended, bowel sounds normal; no masses or organomegaly Extremities: extremities normal, atraumatic, no cyanosis, +ble edema Pulses: 2+ and symmetric Skin: skin color, texture, turgor normal; left lower extremity medial malleolus 3cm superficial wound, no purulent drainage noted Yovani Mcleod M.D. Sep 06, 2017 12:21
--- NOTE | 2017-09-06 13:41 | Cardiac Electrophysiology PN ---
Assessment/Plan Assessment/Plan 1. Chest pain and history of coronary artery bypass graft. ECG chronic inferolateral ischemia. Troponins are negative. Echocardiogram Nl EF 2. Atrial fibrillation with slow ventricular response. On Lovenox 100 sq bid 3. Congestive heart failure due to diastolic dysfunction, history of bilateral lower extremity edema. Lasix 40 mg intravenous b.i.d. 4. Diabetes. 5. Foot ulcer. Vancomycin. DW Daughter Subjective Subjective Feeling better with IV Lasix.Daughter at bedside. Objective Last 24 Hour Vital Signs Date Time Temp Pulse Resp B/P (MAP) Pulse Ox O2 Delivery O2 Flow Rate FiO2 09/06/17 08:00 97.7 94 20 99/51 94 Nasal Cannula 2.0 09/06/17 04:37 97.0 81 19 132/62 99 Nasal Cannula 09/06/17 04:00 81 09/06/17 00:51 97.9 81 19 120/50 97 Nasal Cannula 09/06/17 00:00 83 09/05/17 20:00 90 09/05/17 16:00 64 09/05/17 16:00 96.8 84 20 106/51 100 Nasal Cannula 2.0 Intake and Output 09/05/17 09/06/17 19:00 07:00 Intake Total 750 ml Output Total 900 ml 3000 ml Balance -150 ml -3000 ml Intake Oral 750 ml Output Urine Total 900 ml 3000 ml Laboratory Tests Test 09/06/17 05:00 09/06/17 05:15 Urine Eosinophils None seen Urine Random Sodium 74 MEQ/L (20-110) White Blood Count 4.9 K/UL (4.8-10.8) Red Blood Count 3.97 M/UL (4.70-6.10) L Hemoglobin 11.9 G/DL (14.2-18.0) L Hematocrit 37.3 % (42.0-52.0) L Mean Corpuscular Volume 94 FL (80-99) Mean Corpuscular Hemoglobin 30.0 PG (27.0-31.0) Mean Corpuscular Hemoglobin Concent 32.0 G/DL (32.0-36.0) Red Cell Distribution Width 13.3 % (11.6-14.8) Platelet Count 132 K/UL (150-450) L Mean Platelet Volume 6.2 FL (6.5-10.1) L Neutrophils (%) (Auto) 65.9 % (45.0-75.0) Lymphocytes (%) (Auto) 18.3 % (20.0-45.0) L Monocytes (%) (Auto) 11.2 % (1.0-10.0) H Eosinophils (%) (Auto) 4.1 % (0.0-3.0) H Basophils (%) (Auto) 0.5 % (0.0-2.0) Erythrocyte Sedimentation Rate 67 MM/HR (0-30) H Sodium Level 140 MMOL/L (136-145) Potassium Level 4.8 MMOL/L (3.5-5.1) Chloride Level 99 MMOL/L (98-107) Carbon Dioxide Level 38 MMOL/L (21-32) H Anion Gap 3 mmol/L (5-15) L Blood Urea Nitrogen 35 mg/dL (7-18) H Creatinine 1.3 MG/DL (0.55-1.30) Estimat Glomerular Filtration Rate mL/min (>60) Glucose Level 130 MG/DL (74-106) H Calcium Level 8.7 MG/DL (8.5-10.1) Troponin I 0.018 ng/mL (0.000-0.056) Pro-B-Type Natriuretic Peptide 3339 pg/mL (0-125) H Triglycerides Level 126 MG/DL (30-150) Cholesterol Level 126 MG/DL (< 200) LDL Cholesterol 75 mg/dL (<100) HDL Cholesterol 43 MG/DL (40-60) Cholesterol/HDL Ratio 2.9 (3.3-4.4) L Free Thyroxine 1.05 NG/DL (0.76-1.46) Microbiology Date/Time Source Procedure Growth Status 09/05/17 03:00 Ankle Left Gram Stain Pending Resulted 09/05/17 03:00 Ankle Left Wound Culture - Preliminary NO GROWTH Resulted Objective HEAD AND NECK: Shows no JVD. LUNGS: Decreased breath sounds. CARDIOVASCULAR: Irregular S1, S2 with no gallop or murmur. Sternotomy scar is intact. ABDOMEN: Soft. EXTREMITIES: 2+ pitting edema as well as ulcer in the left ankle. LUIS MANUEL PATHAK Sep 06, 2017 13:41
--- NOTE | 2017-09-06 15:05 | Diagnostic Imaging Report ---
Indication: Pain Technique: XRAY Ankle 2v L Comparison: None Findings: There is no acute fracture or dislocation. Ankle mortise is intact on these nonstress views. There is an os trigonum versus remote posterior talus process fracture. There are dorsal and plantar calcaneal enthesophytes. No radiopaque foreign body seen. Atherosclerotic vascular calcifications noted. Impression: No acute fracture or dislocation.
--- NOTE | 2017-09-06 15:35 | Consultation ---
History of Present Illness General Date patient seen: Sep 06, 2017 Chief Complaint: Chest Pain Reason for Consultation: left leg cellulitis Present Illness HPI 82-year-old male with multiple multiple medical comorbidities presented to [facility] with CHF exacerbation and bilateral leg edema. The patient's left leg, however , was noted to have cellulitis with erythema and warmth along with significantly more swelling than the right leg. The patient has an open wound that looks fairly clean on the left medial malleolus and is fairly superficial. Surgery was called to evaluate wound and help with wound care or debridement if necessary. Patient seen. Notes were reviewed. Labs reviewed. Patient states he has had bilateral leg swelling for some time now. Some days better than others. improved with elevation and when CHF controlled. has had superficial wound on medial malleolus for a few weeks and initially started out small and as a blister. Allergies: Coded Allergies: No Known Allergies (Unverified , 09/04/17) Medication History Scheduled Furosemide* (Lasix*), 20 MG ORAL DAILY, (Reported) Metformin Hcl* (Metformin Hcl*), 500 MG ORAL TWICE A DAY, (Reported) Tamsulosin Hcl (Tamsulosin Hcl*), 0.4 MG ORAL BEDTIME, (Reported) Scheduled PRN Lubiprostone (Amitiza*), 24 MCG ORAL DAILY PRN for Constipation, (Reported) Patient History History Provided By: Patient, Medical Record Healthcare decision maker Resuscitation status Full Code Advanced Directive on File Past Medical/Surgical History Past Medical/Surgical History: (1) Venous stasis ulcer (2) Chest pain (3) CHF (congestive heart failure) (4) Left leg cellulitis Review of Systems Constitutional: Denies: no symptoms, see HPI, chills, sweats, fever, malaise, weakness, other Eye: Denies: no symptoms, see HPI, eye pain, blurred vision, tearing, double vision, nose pain, nose congestion, acuity changes, discharge, other ENT: Denies: no symptoms, see HPI, ear pain, ear discharge, nose pain, nose congestion, throat pain, throat swelling, mouth pain, hearing loss, nasal discharge, other Respiratory: Denies: no symptoms, see HPI, cough, orthopnea, shortness of breath, stridor, wheezing, FRIEDMAN, sputum, other Cardiovascular: Denies: no symptoms, see HPI, chest pain, edema, palpitations, syncope, PND, other Gastrointestinal: Denies: no symptoms, see HPI, abdominal pain, constipation, diarrhea, nausea, vomiting, melena, hematemesis, other Genitourinary: Denies: no symptoms, see HPI, discharge, dysuria, frequency, hematuria, pain, retention, incontinence, urgency, vag bleed/dc, other Musculoskeletal: Denies: no symptoms, see HPI, back pain, gout, joint pain, joint swelling, muscle pain, muscle stiffness, other Skin: Denies: no symptoms, see HPI, rash, change in color, change in hair/nails , dryness, lesions, other Psychiatric: Denies: no symptoms, see HPI, prior hx, anxiety, depressed feelings, emotional problems, SI, HI, hallucinations, other Neurological: Denies: no symptoms, see HPI, headache, numbness, paresthesia, seizure, tingling, tremors, focal weakness, syncope, dizziness, other Endocrine: Denies: no symptoms, see HPI, excessive sweating, flushing, intolerance to temperature, increased thirst, increased urine, unexplained weight loss, other Hematologic/Lymphatic: Denies: no symptoms, see HPI, anemia, blood clots, easy bleeding, easy bruising, swollen glands, diathesis, other Physical Exam General Appearance: no apparent distress, alert Lines, tubes and drains: peripheral HEENT: atraumatic, mucous membranes moist, PERRL Neck: supple, normal inspection Respiratory/Chest: normal breath sounds, no respiratory distress, no accessory muscle use Cardiovascular/Chest: normal peripheral pulses, normal rate, regular rhythm Abdomen: normal bowel sounds, non tender, soft, no organomegaly Extremities: non-tender, slow capillary refill, moderate edema, pitting Skin Exam: normal pigmentation, warm/dry Neurologic: alert, oriented x 3, responsive Physical Exam Narrative left lower extremity medial malleolus 3cm superficial clean wound identified. good granulation tissue. Last 24 Hour Vital Signs Date Time Temp Pulse Resp B/P (MAP) Pulse Ox O2 Delivery O2 Flow Rate FiO2 09/06/17 12:00 97.5 89 18 114/54 100 Nasal Cannula 2.0 09/06/17 08:00 97.7 94 20 99/51 94 Nasal Cannula 2.0 09/06/17 04:37 97.0 81 19 132/62 99 Nasal Cannula 09/06/17 04:00 81 09/06/17 00:51 97.9 81 19 120/50 97 Nasal Cannula 09/06/17 00:00 83 09/05/17 20:00 90 09/05/17 16:00 64 09/05/17 16:00 96.8 84 20 106/51 100 Nasal Cannula 2.0 Intake and Output 09/05/17 09/06/17 18:59 06:59 Intake Total 750 ml Output Total 900 ml 3000 ml Balance -150 ml -3000 ml Intake Oral 750 ml Output Urine Total 900 ml 3000 ml Laboratory Tests Test 09/06/17 05:00 09/06/17 05:15 Urine Eosinophils None seen Urine Random Sodium 74 MEQ/L (20-110) White Blood Count 4.9 K/UL (4.8-10.8) Red Blood Count 3.97 M/UL (4.70-6.10) L Hemoglobin 11.9 G/DL (14.2-18.0) L Hematocrit 37.3 % (42.0-52.0) L Mean Corpuscular Volume 94 FL (80-99) Mean Corpuscular Hemoglobin 30.0 PG (27.0-31.0) Mean Corpuscular Hemoglobin Concent 32.0 G/DL (32.0-36.0) Red Cell Distribution Width 13.3 % (11.6-14.8) Platelet Count 132 K/UL (150-450) L Mean Platelet Volume 6.2 FL (6.5-10.1) L Neutrophils (%) (Auto) 65.9 % (45.0-75.0) Lymphocytes (%) (Auto) 18.3 % (20.0-45.0) L Monocytes (%) (Auto) 11.2 % (1.0-10.0) H Eosinophils (%) (Auto) 4.1 % (0.0-3.0) H Basophils (%) (Auto) 0.5 % (0.0-2.0) Erythrocyte Sedimentation Rate 67 MM/HR (0-30) H Sodium Level 140 MMOL/L (136-145) Potassium Level 4.8 MMOL/L (3.5-5.1) Chloride Level 99 MMOL/L (98-107) Carbon Dioxide Level 38 MMOL/L (21-32) H Anion Gap 3 mmol/L (5-15) L Blood Urea Nitrogen 35 mg/dL (7-18) H Creatinine 1.3 MG/DL (0.55-1.30) Estimat Glomerular Filtration Rate mL/min (>60) Glucose Level 130 MG/DL (74-106) H Calcium Level 8.7 MG/DL (8.5-10.1) Troponin I 0.018 ng/mL (0.000-0.056) Pro-B-Type Natriuretic Peptide 3339 pg/mL (0-125) H Triglycerides Level 126 MG/DL (30-150) Cholesterol Level 126 MG/DL (< 200) LDL Cholesterol 75 mg/dL (<100) HDL Cholesterol 43 MG/DL (40-60) Cholesterol/HDL Ratio 2.9 (3.3-4.4) L Free Thyroxine 1.05 NG/DL (0.76-1.46) Height (Feet): 5 Height (Inches): 8.00 Weight (Pounds): 210 Medications Current Medications Medications (Trade) Dose Ordered Sig/Sara Route PRN Reason Start Time Stop Time Status Last Admin Dose Admin Acetaminophen (Tylenol) 650 mg Q4H PRN ORAL Mild Pain (Pain Scale 1-3) 09/04/17 20:00 10/04/17 19:59 Al Hydroxide/Mg Hydroxide (Mylanta II) 30 ml Q6H PRN ORAL dyspepsia 09/04/17 20:00 10/04/17 19:59 Albuterol/ Ipratropium (Albuterol/ Ipratropium) 3 ml Q4H PRN HHN Shortness of Breath 09/04/17 20:00 09/09/17 19:59 Cefepime HCl 1 gm/ Dextrose 50 ml @ 100 mls/hr Q24HRS IVPB 09/05/17 18:30 09/12/17 23:59 09/05/17 18:37 Dextrose (Dextrose 50%) STAT PRN IV Hypoglycemia 09/04/17 20:00 10/04/17 19:59 Docusate Sodium (Colace) 100 mg EVERY 12 HOURS ORAL 09/04/17 21:00 10/04/17 20:59 09/06/17 08:30 Enoxaparin Sodium (Lovenox) 100 mg EVERY 12 HOURS SUBQ 09/05/17 21:00 10/05/17 20:59 09/06/17 08:32 Furosemide (Lasix) 40 mg EVERY 12 HOURS IV 09/05/17 21:00 10/05/17 20:59 09/06/17 08:30 Insulin Aspart (NovoLOG) BEFORE MEALS AND HS SUBQ 09/04/17 22:00 10/04/17 21:59 09/05/17 23:37 Ondansetron HCl (Zofran) 4 mg Q6H PRN IVP Nausea & Vomiting 09/04/17 20:00 10/04/17 19:59 Polyethylene Glycol (Miralax) 17 gm DAILYPRN PRN ORAL Constipation 09/04/17 20:00 10/04/17 19:59 Tamsulosin HCl (Flomax) 0.4 mg BEDTIME ORAL 09/04/17 21:00 10/04/17 20:59 09/05/17 23:41 Tramadol HCl (Ultram) 50 mg Q4H PRN ORAL pain 4-10 09/04/17 20:00 09/11/17 19:59 Vancomycin HCl (Vanco rx to dose) 1 ea DAILY PRN MISC Per rx protocol 09/04/17 20:00 10/04/17 19:59 Vancomycin/Sodium Chloride 250 ml @ 166.667 mls/hr Q24H IVPB 09/05/17 22:00 09/10/17 21:59 09/05/17 23:39 Assessment/Plan Problem List: (1) Venous stasis ulcer Assessment & Plan: 82M with bilateral leg edema L>R with venous stasis ulcer on left medial malleolus. wound superficial and clean. erythema and cellulitis in left extremity improved. patient well. on IV Abx, ID following. wound clean. no acute surgical intervention necessary. continue with wound care. MUST keep legs elevated to reduce edema continue Abx will improved as edema improves. Venous duplex. thank you for this consultation. will follow with recs. ICD Codes: I83.009 - Varicose veins of unspecified lower extremity with ulcer of unspecified site; L97.909 - Non-pressure chronic ulcer of unspecified part of unspecified lower leg with unspecified severity SNOMED: [id number], [id number], [id number] Status: stable Jason Martinez Sep 06, 2017 15:35
[2017-09-06 16:00] VITALS: BP 110/59
[2017-09-06] MEDS ORDERED: Tubing IV Secondary IV ONE (19:00)
[2017-09-06] MEDS ORDERED: NS 275ml ONE (19:00)
[2017-09-06 20:00] VITALS: BP 115/62
[2017-09-06] MEDS: Tamsulosin 0.4mg cap ORAL SCH (20:58)
[2017-09-06] MEDS: Vancomycin 750mg/NS 250ml IVPB SCH (22:19)
[2017-09-07] VITALS: BP 117/50
[2017-09-07 04:00] VITALS: BP 110/43
[2017-09-07] MEDS: NovoLOG Insulin Flexpen SUBQ SCH ×4 (06:12→21:01)
[2017-09-07 08:00] VITALS: BP 148/62
[2017-09-07 08:36] LABS: BASOPHILS % (AUTO) 0.9 % (0.0-2.0); EOSINOPHILS % (AUTO) 2.7 % (0.0-3.0); HEMATOCRIT 36.2 % (42.0-52.0); HEMOGLOBIN 11.7 G/DL (14.2-18.0); LYMPHOCYTES % (AUTO) 23.6 % (20.0-45.0); MEAN CORPUSCULAR VOLUME 93 FL (80-99); MONOCYTES % (AUTO) 11.4 % (1.0-10.0); NEUTROPHILS % (AUTO) 61.4 % (45.0-75.0); PLATELET COUNT 118 K/UL (150-450); RED BLOOD COUNT 3.89 M/UL (4.70-6.10); RED CELL DISTRIBUTION WIDTH 13.5 % (11.6-14.8); WHITE BLOOD COUNT 3.8 K/UL (4.8-10.8)
[2017-09-07] MEDS: Docusate 100mg cap ORAL SCH ×4 (08:51→17:09)
[2017-09-07] MEDS: Enoxaparin 100mg Inj SUBQ SCH ×2 (08:52→21:00)
--- NOTE | 2017-09-07 08:57 | Wound Care Consultation ---
Wound Assessment Wound Assessment : Wound Number: 1 Wound Present on Admission: Yes New Wound: No Status Change of Wound: No Wound Location Body Site Modif: left, medial Wound Location Body Site: malleolus/ankle Wound Type: pressure ulcer Christopher Test: Does not Christopher Pressure Ulcer Stage: II - open blister Wound Thickness: Partial Thickness Wound Length: 4.0 Wound Width: 4.0 Wound Depth: less than 0.1 Percent of Wound Stoddard/Red: 100 Wound Drainage Description: Serosanguineous Wound Drainage Amount: Scant Wound Drainage Odor: None/Absent Tissue Surrounding Wound: cellulitis on surrounding skin and on dorsal foot Wound General Appearance: Reddened, Draining Wound Comment #1 Left medial malleolus open blister. Cellulitis on the surrounding skin and on the dorsal foot Recommendation -Cleanse with saline, pat dry, apply Xeroform drg, cover with Bordered gauze daily and PRN soiled/dislodged -Optimize nutrition -Offload both heels -Heel protector on both heels -Assess and f/u accordingly for any changes KORI PARK RN Sep 07, 2017 08:56
[2017-09-07 09:18] LABS: ALANINE AMINOTRANSFERASE 14 U/L (12-78); ALBUMIN 3.2 G/DL (3.4-5.0); ALBUMIN/GLOBULIN RATIO 0.9 (1.0-2.7); ALKALINE PHOSPHATASE 65 U/L (46-116); ANION GAP 6 mmol/L (5-15); ASPARTATE AMINO TRANSFERASE 16 U/L (15-37); BILIRUBIN,TOTAL 0.7 MG/DL (0.2-1.0); BLOOD UREA NITROGEN 29 mg/dL (7-18); CALCIUM 8.5 MG/DL (8.5-10.1); CARBON DIOXIDE 37 MMOL/L (21-32); CHLORIDE 99 MMOL/L (98-107); CREATININE 1.2 MG/DL (0.55-1.30); PHOSPHORUS 3.3 MG/DL (2.5-4.9); SODIUM 142 MMOL/L (136-145)
--- NOTE | 2017-09-07 11:51 | Nephrology Progress Note ---
Assessment/Plan Assessment Renal failure, likely pre Renal Acute on chronic CHF Atrial Fib with slow Vent rate Lower extremity cellulitis Chest pain DM HLD HTN now presenting with hypotension Obesity Plan Plan: Optimize cardiac and pulmonary status monitor renal parameters and lytes avoid nephrotoxics Subjective ROS Limited/Unobtainable: No Constitutional: Reports: malaise Objective Objective Last 24 Hour Vital Signs Date Time Temp Pulse Resp B/P (MAP) Pulse Ox O2 Delivery O2 Flow Rate FiO2 09/07/17 08:00 97.1 83 20 148/62 96 Room Air 09/07/17 04:00 85 09/07/17 04:00 98.0 97 20 110/43 94 09/07/17 00:00 93 09/07/17 00:00 97.0 99 20 117/50 96 09/06/17 20:00 87 09/06/17 20:00 97.0 69 20 115/62 95 09/06/17 16:00 97.4 91 20 110/59 95 Nasal Cannula 2.0 09/06/17 16:00 79 09/06/17 12:00 86 09/06/17 12:00 97.5 89 18 114/54 100 Nasal Cannula 2.0 Intake and Output 09/06/17 09/07/17 19:00 07:00 Intake Total 360 ml Output Total 150 ml 1400 ml Balance 210 ml -1400 ml Intake Oral 360 ml Output Urine Total 150 ml 1400 ml # Voids 2 Laboratory Tests 09/07/17 05:30: Urine Eosinophils None seen 09/07/17 07:25: White Blood Count 3.8L, Red Blood Count 3.89L, Hemoglobin 11.7L, Hematocrit 36.2L, Mean Corpuscular Volume 93, Mean Corpuscular Hemoglobin 30.2, Mean Corpuscular Hemoglobin Concent 32.4, Red Cell Distribution Width 13.5, Platelet Count 118L, Mean Platelet Volume 6.6, Neutrophils (%) (Auto) 61.4, Lymphocytes ( %) (Auto) 23.6, Monocytes (%) (Auto) 11.4H, Eosinophils (%) (Auto) 2.7, Basophils (%) (Auto) 0.9, Sodium Level 142, Potassium Level 4.0, Chloride Level 99, Carbon Dioxide Level 37H, Anion Gap 6, Blood Urea Nitrogen 29H, Creatinine 1.2, Estimat Glomerular Filtration Rate , Glucose Level 117H, Uric Acid 9.1H, Calcium Level 8.5, Phosphorus Level 3.3, Magnesium Level 1.7L, Total Bilirubin 0.7, Aspartate Amino Transf (AST/SGOT) 16, Alanine Aminotransferase (ALT/SGPT) 14, Alkaline Phosphatase 65, Troponin I 0.032, Pro-B-Type Natriuretic Peptide 3869H, Total Protein 6.6, Albumin 3.2L, Globulin 3.4, Albumin/Globulin Ratio 0.9L Height (Feet): 5 Height (Inches): 8.00 Weight (Pounds): 217 General Appearance: no apparent distress Cardiovascular: normal rate Respiratory/Chest: decreased breath sounds Abdomen: soft Objective no change BRIAN SIFUENTES Sep 07, 2017 11:51
[2017-09-07 12:00] VITALS: BP 110/65
--- NOTE | 2017-09-07 12:53 | Diagnostic Imaging Report ---
Indication: Acute renal failure Technique: Grayscale and duplex images of the kidneys, retroperitoneum, and bladder were obtained. Comparison: none Findings: Right kidney measures 12.1 cm in length. Left kidney measures 11.5 cm in length. Both kidneys demonstrate normal echogenicity. No hydronephrosis. Kidneys demonstrate cysts bilaterally.. Normal inferior vena cava. Bladder is normal. Impression: Negative for hydronephrosis Incidental finding bilateral renal cysts.
--- NOTE | 2017-09-07 13:12 | General Surgery Progress Note ---
General Surgery-Progress Note Subjective Symptoms: improved Additional Comments pain improved. edema improved. has legs elevated while in bed. states he feels better today. Objective Last 24 Hour Vital Signs Date Time Temp Pulse Resp B/P (MAP) Pulse Ox O2 Delivery O2 Flow Rate FiO2 09/07/17 08:00 97.1 83 20 148/62 96 Room Air 09/07/17 04:00 85 09/07/17 04:00 98.0 97 20 110/43 94 09/07/17 00:00 93 09/07/17 00:00 97.0 99 20 117/50 96 09/06/17 20:00 87 09/06/17 20:00 97.0 69 20 115/62 95 09/06/17 16:00 97.4 91 20 110/59 95 Nasal Cannula 2.0 09/06/17 16:00 79 I&O Intake and Output 09/06/17 09/07/17 19:00 07:00 Intake Total 360 ml Output Total 150 ml 1400 ml Balance 210 ml -1400 ml Intake Oral 360 ml Output Urine Total 150 ml 1400 ml # Voids 2 Dressing: dry Wound: clean Drains: none Cardiovascular: RSR Respiratory: clear Abdomen: soft, non-tender, present bowel sounds Extremities: edema - with small ulceration in medial malleolus Laboratory Tests Test 09/07/17 05:30 09/07/17 07:25 Urine Eosinophils None seen White Blood Count 3.8 K/UL (4.8-10.8) L Red Blood Count 3.89 M/UL (4.70-6.10) L Hemoglobin 11.7 G/DL (14.2-18.0) L Hematocrit 36.2 % (42.0-52.0) L Mean Corpuscular Volume 93 FL (80-99) Mean Corpuscular Hemoglobin 30.2 PG (27.0-31.0) Mean Corpuscular Hemoglobin Concent 32.4 G/DL (32.0-36.0) Red Cell Distribution Width 13.5 % (11.6-14.8) Platelet Count 118 K/UL (150-450) L Mean Platelet Volume 6.6 FL (6.5-10.1) Neutrophils (%) (Auto) 61.4 % (45.0-75.0) Lymphocytes (%) (Auto) 23.6 % (20.0-45.0) Monocytes (%) (Auto) 11.4 % (1.0-10.0) H Eosinophils (%) (Auto) 2.7 % (0.0-3.0) Basophils (%) (Auto) 0.9 % (0.0-2.0) Sodium Level 142 MMOL/L (136-145) Potassium Level 4.0 MMOL/L (3.5-5.1) Chloride Level 99 MMOL/L (98-107) Carbon Dioxide Level 37 MMOL/L (21-32) H Anion Gap 6 mmol/L (5-15) Blood Urea Nitrogen 29 mg/dL (7-18) H Creatinine 1.2 MG/DL (0.55-1.30) Estimat Glomerular Filtration Rate mL/min (>60) Glucose Level 117 MG/DL (74-106) H Uric Acid 9.1 MG/DL (2.6-7.2) H Calcium Level 8.5 MG/DL (8.5-10.1) Phosphorus Level 3.3 MG/DL (2.5-4.9) Magnesium Level 1.7 MG/DL (1.8-2.4) L Total Bilirubin 0.7 MG/DL (0.2-1.0) Aspartate Amino Transf (AST/SGOT) 16 U/L (15-37) Alanine Aminotransferase (ALT/SGPT) 14 U/L (12-78) Alkaline Phosphatase 65 U/L (46-116) Troponin I 0.032 ng/mL (0.000-0.056) Pro-B-Type Natriuretic Peptide 3869 pg/mL (0-125) H Total Protein 6.6 G/DL (6.4-8.2) Albumin 3.2 G/DL (3.4-5.0) L Globulin 3.4 g/dL Albumin/Globulin Ratio 0.9 (1.0-2.7) L Plan Problems: (1) Venous stasis ulcer Assessment & Plan: 82M with bilateral leg edema L>R with venous stasis ulcer on left medial malleolus. wound superficial and clean. erythema and cellulitis in left extremity improved. patient well. on IV Abx, ID following. wound clean. no acute surgical intervention necessary. continue with wound care. MUST keep legs elevated to reduce edema continue Abx will improved as edema improves. thank you for this consultation. will follow with recs. Jason Martinez Sep 07, 2017 13:11
--- NOTE | 2017-09-07 15:36 | Cardiac Electrophysiology PN ---
Assessment/Plan Assessment/Plan 1. Chest pain and history of CABG. ECG inferolateral T inversion. Troponins are negative. Echocardiogram Nl EF. No chest pain 2. Atrial fibrillation with slow ventricular response. On Lovenox 100 sq bid 3. Congestive heart failure due to diastolic dysfunction, history of bilateral lower extremity edema.On Lasix 40 mg intravenous b.i.d. 4. Diabetes. 5. Foot ulcer. Vancomycin. DW RN Subjective Subjective Diuresing well. Feeling better and leg edema is improving. RN at bedside. Objective Last 24 Hour Vital Signs Date Time Temp Pulse Resp B/P (MAP) Pulse Ox O2 Delivery O2 Flow Rate FiO2 09/07/17 08:00 97.1 83 20 148/62 96 Room Air 09/07/17 04:00 85 09/07/17 04:00 98.0 97 20 110/43 94 09/07/17 00:00 93 09/07/17 00:00 97.0 99 20 117/50 96 09/06/17 20:00 87 09/06/17 20:00 97.0 69 20 115/62 95 09/06/17 16:00 97.4 91 20 110/59 95 Nasal Cannula 2.0 09/06/17 16:00 79 Intake and Output 09/06/17 09/07/17 19:00 07:00 Intake Total 360 ml Output Total 150 ml 1400 ml Balance 210 ml -1400 ml Intake Oral 360 ml Output Urine Total 150 ml 1400 ml # Voids 2 Laboratory Tests Test 09/07/17 05:30 09/07/17 07:25 Urine Eosinophils None seen White Blood Count 3.8 K/UL (4.8-10.8) L Red Blood Count 3.89 M/UL (4.70-6.10) L Hemoglobin 11.7 G/DL (14.2-18.0) L Hematocrit 36.2 % (42.0-52.0) L Mean Corpuscular Volume 93 FL (80-99) Mean Corpuscular Hemoglobin 30.2 PG (27.0-31.0) Mean Corpuscular Hemoglobin Concent 32.4 G/DL (32.0-36.0) Red Cell Distribution Width 13.5 % (11.6-14.8) Platelet Count 118 K/UL (150-450) L Mean Platelet Volume 6.6 FL (6.5-10.1) Neutrophils (%) (Auto) 61.4 % (45.0-75.0) Lymphocytes (%) (Auto) 23.6 % (20.0-45.0) Monocytes (%) (Auto) 11.4 % (1.0-10.0) H Eosinophils (%) (Auto) 2.7 % (0.0-3.0) Basophils (%) (Auto) 0.9 % (0.0-2.0) Sodium Level 142 MMOL/L (136-145) Potassium Level 4.0 MMOL/L (3.5-5.1) Chloride Level 99 MMOL/L (98-107) Carbon Dioxide Level 37 MMOL/L (21-32) H Anion Gap 6 mmol/L (5-15) Blood Urea Nitrogen 29 mg/dL (7-18) H Creatinine 1.2 MG/DL (0.55-1.30) Estimat Glomerular Filtration Rate mL/min (>60) Glucose Level 117 MG/DL (74-106) H Uric Acid 9.1 MG/DL (2.6-7.2) H Calcium Level 8.5 MG/DL (8.5-10.1) Phosphorus Level 3.3 MG/DL (2.5-4.9) Magnesium Level 1.7 MG/DL (1.8-2.4) L Total Bilirubin 0.7 MG/DL (0.2-1.0) Aspartate Amino Transf (AST/SGOT) 16 U/L (15-37) Alanine Aminotransferase (ALT/SGPT) 14 U/L (12-78) Alkaline Phosphatase 65 U/L (46-116) Troponin I 0.032 ng/mL (0.000-0.056) Pro-B-Type Natriuretic Peptide 3869 pg/mL (0-125) H Total Protein 6.6 G/DL (6.4-8.2) Albumin 3.2 G/DL (3.4-5.0) L Globulin 3.4 g/dL Albumin/Globulin Ratio 0.9 (1.0-2.7) L Microbiology Date/Time Source Procedure Growth Status 09/05/17 03:00 Ankle Left Gram Stain - Final Resulted 09/05/17 03:00 Ankle Left Wound Culture - Preliminary NO GROWTH AFTER 48 HOURS Resulted Objective HEAD AND NECK: Shows no JVD. LUNGS: Decreased breath sounds. CARDIOVASCULAR: Irregular S1, S2 with no gallop or murmur. Sternotomy scar is intact. ABDOMEN: Soft. EXTREMITIES: 2+ pitting edema as well as ulcer in the left ankle. LUIS MANUEL PATHAK Sep 07, 2017 15:35
[2017-09-07 16:00] VITALS: BP 111/68
--- NOTE | 2017-09-07 17:28 | Cardiology Report ---
APPROVED REPORT EXAM: Two-dimensional and M-mode echocardiogram with Doppler and color Doppler. INDICATION Congestive Heart Failure Other Information Technically limited study due to poor acoustic windows. Technically difficult study due to poor parasternal acoustical windows. Study quality precludes accurate assessment of regional wall motion. M-mode measurements of left ventricle not obtainable due to cardiac position (angle). Normal left ventricular chamber size, systolic function and wall motion to extent visualized. Left ventricular ejection fraction estimated to be grossly normal. Mild / No evidence of left ventricular hypertrophy. No evidence of pericardial effusion. Mild left atrial enlargement. Right cardiac chamber sizes are within normal limits. Aortic valve calcification with decreased cusp excursion c/w aortic stenosis. Mildly thickened mitral valve leaflets with normal excursion. Heavy mitral annulus and aortic root calcification. Pulmonic valve not visualized. Tricuspid valve not well visualized. IVC dilated at 2.5 cm without physiological collapse, estimated RAP is 15 mmHg. A color flow and spectral Doppler study was performed and revealed: No aortic insufficiency. Peak aortic valve gradient of 44 mmHg and a mean of 27 mmHg. Aortic valve area 1.0 cm2 calculated by continuity equation. Mild to moderate mitral regurgitation. Left ventricular diastolic function could not be determined due to A-Fib. Trace tricuspid regurgitation. Tricuspid systolic velocities suggests peak right ventricular systolic pressure of 45 mmHg, consistent with moderate pulmonary hypertension.
--- NOTE | 2017-09-07 18:44 | Infectious Diseases Prog Note ---
Assessment/Plan Assessment/Plan ASSESSMENT AND PLAN: 1. left leg cellulitis, left ankle wound, wound culture negative, x-ray left ankle without osteo - clinically better - continue vancomycin and cefepime - day # 3 abx - watch labs and cr - d/w Daughter 2. Elevated creatinine. 3. Anemia. 4. Thrombocytopenia. 5. Congestive heart failure. 6. Chronic atrial fibrillation. 7. Anticoagulation. 8. Coronary artery disease. 9. Status post coronary artery bypass graft. 10. Hypertension. 11. Diabetes. 12. Hyperlipidemia. 13. History of influenza. 14. MAR was noted. 15. Case discussed with RN. 16. Social history negative. 17. Family history noncontributory. 18. No known allergies. 19. Continue treatment per primary consultants. 20. Skin care protocol. 21. Notes and records were noted. 22. Orders were entered. Subjective Constitutional: Denies: fever HEENT: Denies: congestion Respiratory: Denies: shortness of breath Cardiovascular: Denies: chest pain Gastrointestinal/Abdominal: Denies: nausea, vomiting, diarrhea Genitourinary: Denies: dysuria Neurologic: Denies: headache Psychiatric: Denies: depression Skin: Denies: rash Hematologic: Denies: bleeding Musculoskeletal: Denies: pain Allergies: Coded Allergies: No Known Allergies (Unverified , 09/04/17) Objective Vital Signs Last 24 Hour Vital Signs Date Time Temp Pulse Resp B/P (MAP) Pulse Ox O2 Delivery O2 Flow Rate FiO2 09/07/17 08:00 97.1 83 20 148/62 96 Room Air 09/07/17 04:00 85 09/07/17 04:00 98.0 97 20 110/43 94 09/07/17 00:00 93 09/07/17 00:00 97.0 99 20 117/50 96 09/06/17 20:00 87 09/06/17 20:00 97.0 69 20 115/62 95 Height (Feet): 5 Height (Inches): 8.00 Weight (Pounds): 217 General Appearance: no acute distress HEENT: normocephalic, atraumatic, anicteric, mucous membranes moist Respiratory/Chest: lungs clear, normal breath sounds, no respiratory distress, no accessory muscle use Cardiovascular: normal rate, regular rhythm, no gallop/murmur, no JVD Abdomen: normal bowel sounds, soft, non tender, no organomegaly, non distended Genitourinary: other - no fish Extremities: no cyanosis, other - left leg with decreased warmth/swelling and redness Skin: no rash Neurologic/Psychiatric: director biologics II-XII grossly normal, alert, oriented x 3 Lymphatic: no neck adenopathy Musculoskeletal: no effusion Objective x-ray - left ankle Comparison: None Findings: There is no acute fracture or dislocation. Ankle mortise is intact on these nonstress views. There is an os trigonum versus remote posterior talus process fracture. There are dorsal and plantar calcaneal enthesophytes. No radiopaque foreign body seen. Atherosclerotic vascular calcifications noted. Impression: No acute fracture or dislocation. Chest x-ray - atx (noted) Microbiology Date/Time Source Procedure Growth Status 09/05/17 03:00 Ankle Left Gram Stain - Final Resulted 09/05/17 03:00 Ankle Left Wound Culture - Preliminary NO GROWTH AFTER 48 HOURS Resulted Laboratory Tests Test 09/07/17 05:30 09/07/17 07:25 Urine Eosinophils None seen White Blood Count 3.8 K/UL (4.8-10.8) L Red Blood Count 3.89 M/UL (4.70-6.10) L Hemoglobin 11.7 G/DL (14.2-18.0) L Hematocrit 36.2 % (42.0-52.0) L Mean Corpuscular Volume 93 FL (80-99) Mean Corpuscular Hemoglobin 30.2 PG (27.0-31.0) Mean Corpuscular Hemoglobin Concent 32.4 G/DL (32.0-36.0) Red Cell Distribution Width 13.5 % (11.6-14.8) Platelet Count 118 K/UL (150-450) L Mean Platelet Volume 6.6 FL (6.5-10.1) Neutrophils (%) (Auto) 61.4 % (45.0-75.0) Lymphocytes (%) (Auto) 23.6 % (20.0-45.0) Monocytes (%) (Auto) 11.4 % (1.0-10.0) H Eosinophils (%) (Auto) 2.7 % (0.0-3.0) Basophils (%) (Auto) 0.9 % (0.0-2.0) Sodium Level 142 MMOL/L (136-145) Potassium Level 4.0 MMOL/L (3.5-5.1) Chloride Level 99 MMOL/L (98-107) Carbon Dioxide Level 37 MMOL/L (21-32) H Anion Gap 6 mmol/L (5-15) Blood Urea Nitrogen 29 mg/dL (7-18) H Creatinine 1.2 MG/DL (0.55-1.30) Estimat Glomerular Filtration Rate mL/min (>60) Glucose Level 117 MG/DL (74-106) H Uric Acid 9.1 MG/DL (2.6-7.2) H Calcium Level 8.5 MG/DL (8.5-10.1) Phosphorus Level 3.3 MG/DL (2.5-4.9) Magnesium Level 1.7 MG/DL (1.8-2.4) L Total Bilirubin 0.7 MG/DL (0.2-1.0) Aspartate Amino Transf (AST/SGOT) 16 U/L (15-37) Alanine Aminotransferase (ALT/SGPT) 14 U/L (12-78) Alkaline Phosphatase 65 U/L (46-116) Troponin I 0.032 ng/mL (0.000-0.056) Pro-B-Type Natriuretic Peptide 3869 pg/mL (0-125) H Total Protein 6.6 G/DL (6.4-8.2) Albumin 3.2 G/DL (3.4-5.0) L Globulin 3.4 g/dL Albumin/Globulin Ratio 0.9 (1.0-2.7) L Current Medications Medications (Trade) Dose Ordered Sig/Sara Route PRN Reason Start Time Stop Time Status Last Admin Dose Admin Acetaminophen (Tylenol) 650 mg Q4H PRN ORAL Mild Pain (Pain Scale 1-3) 09/04/17 20:00 10/04/17 19:59 Albuterol/ Ipratropium (Albuterol/ Ipratropium) 3 ml Q4H PRN HHN Shortness of Breath 09/04/17 20:00 09/09/17 19:59 Cefepime HCl 1 gm/ Dextrose 50 ml @ 100 mls/hr Q24HRS IVPB 09/05/17 18:30 09/12/17 23:59 09/07/17 17:39 Dextrose (Dextrose 50%) STAT PRN IV Hypoglycemia 09/04/17 20:00 10/04/17 19:59 Docusate Sodium (Colace) 100 mg TID ORAL 09/06/17 18:00 10/04/17 20:59 09/07/17 08:51 Enoxaparin Sodium (Lovenox) 100 mg EVERY 12 HOURS SUBQ 09/05/17 21:00 10/05/17 20:59 09/07/17 08:52 Furosemide (Lasix) 40 mg EVERY 12 HOURS IV 09/05/17 21:00 10/05/17 20:59 09/07/17 08:51 Insulin Aspart (NovoLOG) BEFORE MEALS AND HS SUBQ 09/04/17 22:00 10/04/17 21:59 09/07/17 17:08 Lansoprazole (Prevacid) 30 mg DAILY ORAL 09/06/17 17:00 10/06/17 16:59 09/07/17 08:51 Ondansetron HCl (Zofran) 4 mg Q6H PRN IVP Nausea & Vomiting 09/04/17 20:00 10/04/17 19:59 Polyethylene Glycol (Miralax) 17 gm DAILYPRN PRN ORAL Constipation 09/04/17 20:00 10/04/17 19:59 Tamsulosin HCl (Flomax) 0.4 mg BEDTIME ORAL 09/04/17 21:00 10/04/17 20:59 09/06/17 20:58 Tramadol HCl (Ultram) 50 mg Q4H PRN ORAL pain 4-10 09/04/17 20:00 09/11/17 19:59 Vancomycin HCl (Vanco rx to dose) 1 ea DAILY PRN MISC Per rx protocol 09/04/17 20:00 10/04/17 19:59 Vancomycin/Sodium Chloride 250 ml @ 166.667 mls/hr Q24H IVPB 09/05/17 22:00 09/10/17 21:59 09/06/17 22:19 BRUNILDA VO Sep 07, 2017 18:44
[2017-09-07 20:00] VITALS: BP 105/58
[2017-09-07] MEDS: Tamsulosin 0.4mg cap ORAL SCH (20:58)
[2017-09-07] MEDS ORDERED: Vancomycin 1gm inj IVPB ONE (22:36)
[2017-09-07] MEDS ORDERED: Vancomycin 1gm in D5W 275ml IVPB SCH (23:00)
--- NOTE | 2017-09-07 23:17 | General Progress Note ---
Assessment/Plan Problem List: (1) Acute on chronic diastolic (congestive) heart failure ICD Codes: I50.33 - Acute on chronic diastolic (congestive) heart failure SNOMED: 41984483, 390240973 (2) Venous stasis ulcer ICD Codes: I83.009 - Varicose veins of unspecified lower extremity with ulcer of unspecified site; L97.909 - Non-pressure chronic ulcer of unspecified part of unspecified lower leg with unspecified severity SNOMED: 896378248, 37575812, 31604321 (3) Left leg cellulitis ICD Codes: L03.116 - Cellulitis of left lower limb SNOMED: 108504912 (4) Chest pain ICD Codes: R07.9 - Chest pain, unspecified SNOMED: 92498130 (5) YUVAL (acute kidney injury) ICD Codes: N17.9 - Acute kidney failure, unspecified SNOMED: 30318771 (6) Cardiorenal syndrome ICD Codes: I13.10 - Hypertensive heart and chronic kidney disease without heart failure, with stage 1 through stage 4 chronic kidney disease, or unspecified chronic kidney disease SNOMED: 859501332 (7) HTN (hypertension) ICD Codes: I10 - Essential (primary) hypertension SNOMED: 17303719 (8) HLD (hyperlipidemia) ICD Codes: E78.5 - Hyperlipidemia, unspecified SNOMED: 86035107 (9) Obesity ICD Codes: E66.9 - Obesity, unspecified SNOMED: 186660247 (10) Hyperkalemia ICD Codes: E87.5 - Hyperkalemia SNOMED: 23110266 (11) Atrial fibrillation with slow ventricular response ICD Codes: I48.91 - Unspecified atrial fibrillation SNOMED: 28696583, 038946714 (12) CAD s/p CABG Status: stable Assessment/Plan - tele - serial trop flat - vancomycin and cefepime per ID--will d/w ID re abx on d/c - f/u L ankle x-ray--no e/o osteo - Surgical consult to assess need for debridement--wound appears clean, no debridement needed - cont lasix 40mg IV BID - strict I&Os - daily weights - cardiology consulted - [id number] BID - 2d echo reviewed--shows moderate pulm HTN, increased RA pressures - ID consulted - blood cx - monitor blood glucose level - ISS - diabetic cardiac diet - hold antihypertensives - monitor blood pressure closely - KIARA - monitor renal indices and electrolytes - PT eval FULL CODE Dispo: likely d/c tomorrow, either home w/ hh vs SNF Subjective Date patient seen: Sep 07, 2017 Time patient seen: 15:00 ROS Limited/Unobtainable: No Constitutional: Reports: weakness HEENT: Reports: no symptoms Cardiovascular: Reports: no symptoms Respiratory: Reports: no symptoms Gastrointestinal/Abdominal: Reports: no symptoms Genitourinary: Reports: no symptoms Neurologic/Psychiatric: Reports: no symptoms Endocrine: Reports: no symptoms Hematologic/Lymphatic: Reports: no symptoms Allergies: Coded Allergies: No Known Allergies (Unverified , 09/04/17) All Systems: reviewed and negative except above Subjective No acute o/n events C/o L foot pain. Denies f/c, n/v, d/c, chest pain, SOB. C/o generalized weakness , fatigue Objective Last 24 Hour Vital Signs Date Time Temp Pulse Resp B/P (MAP) Pulse Ox O2 Delivery O2 Flow Rate FiO2 09/07/17 20:00 97.0 87 20 105/58 94 09/07/17 16:00 79 09/07/17 16:00 98.8 86 20 111/68 97 Room Air 09/07/17 12:00 98 09/07/17 12:00 96.9 95 20 110/65 95 Room Air 09/07/17 08:00 97.1 83 20 148/62 96 Room Air 09/07/17 08:00 102 09/07/17 04:00 85 09/07/17 04:00 98.0 97 20 110/43 94 09/07/17 00:00 93 09/07/17 00:00 97.0 99 20 117/50 96 Intake and Output 09/06/17 09/07/17 19:00 07:00 Intake Total 360 ml Output Total 150 ml 1400 ml Balance 210 ml -1400 ml Intake Oral 360 ml Output Urine Total 150 ml 1400 ml # Voids 2 Laboratory Tests 09/07/17 05:30: Urine Eosinophils None seen 09/07/17 07:25: White Blood Count 3.8L, Red Blood Count 3.89L, Hemoglobin 11.7L, Hematocrit 36.2L, Mean Corpuscular Volume 93, Mean Corpuscular Hemoglobin 30.2, Mean Corpuscular Hemoglobin Concent 32.4, Red Cell Distribution Width 13.5, Platelet Count 118L, Mean Platelet Volume 6.6, Neutrophils (%) (Auto) 61.4, Lymphocytes ( %) (Auto) 23.6, Monocytes (%) (Auto) 11.4H, Eosinophils (%) (Auto) 2.7, Basophils (%) (Auto) 0.9, Sodium Level 142, Potassium Level 4.0, Chloride Level 99, Carbon Dioxide Level 37H, Anion Gap 6, Blood Urea Nitrogen 29H, Creatinine 1.2, Estimat Glomerular Filtration Rate , Glucose Level 117H, Uric Acid 9.1H, Calcium Level 8.5, Phosphorus Level 3.3, Magnesium Level 1.7L, Total Bilirubin 0.7, Aspartate Amino Transf (AST/SGOT) 16, Alanine Aminotransferase (ALT/SGPT) 14, Alkaline Phosphatase 65, Troponin I 0.032, Pro-B-Type Natriuretic Peptide 3869H, Total Protein 6.6, Albumin 3.2L, Globulin 3.4, Albumin/Globulin Ratio 0.9L 09/07/17 20:45: Vancomycin Level Trough 9.2 Height (Feet): 5 Height (Inches): 8.00 Weight (Pounds): 217 Objective General: alert, cooperative, no distress, appears stated age Head: normocephalic, without obvious abnormality, atraumatic Eyes: conjunctivae/corneas clear. PERRL, EOM's intact Throat: lips, mucosa, and tongue normal. MMM Neck: supple, symmetrical, trachea midline, and no JVD Lungs: clear to auscultation bilaterally Heart: regular rate and rhythm, S1, S2 normal, no murmur, click, rub or gallop Abdomen: soft, non-tender, non-distended, bowel sounds normal; no masses or organomegaly Extremities: extremities normal, atraumatic, no cyanosis, +ble edema Pulses: 2+ and symmetric Skin: skin color, texture, turgor normal; left lower extremity medial malleolus 3cm superficial wound, no purulent drainage noted Yovani Mcleod M.D. Sep 07, 2017 23:17
[2017-09-08] VITALS: BP 107/70
[2017-09-08 04:00] VITALS: BP 117/68
[2017-09-08] MEDS: NovoLOG Insulin Flexpen SUBQ SCH ×2 (06:44→11:42)
[2017-09-08 08:00] VITALS: BP 123/69
[2017-09-08] MEDS: Docusate 100mg cap ORAL SCH ×2 (08:09→13:04)
[2017-09-08] MEDS: Enoxaparin 100mg Inj SUBQ SCH (08:11)
[2017-09-08] MEDS ORDERED: Furosemide 40mg tab ORAL SCH (09:00)
[2017-09-08 09:35] LABS: HEMOGLOBIN 11.2 G/DL (14.2-18.0); MEAN CORPUSCULAR VOLUME 93 FL (80-99); PLATELET COUNT 122 K/UL (150-450); RED BLOOD COUNT 3.66 M/UL (4.70-6.10); RED CELL DISTRIBUTION WIDTH 13.2 % (11.6-14.8); WHITE BLOOD COUNT 3.1 K/UL (4.8-10.8)
[2017-09-08 09:52] LABS: ANION GAP 6 mmol/L (5-15); BLOOD UREA NITROGEN 24 mg/dL (7-18); CALCIUM 8.7 MG/DL (8.5-10.1); CARBON DIOXIDE 38 MMOL/L (21-32); CHLORIDE 97 MMOL/L (98-107); CREATININE 1.2 MG/DL (0.55-1.30); POTASSIUM 3.5 MMOL/L (3.5-5.1); SODIUM 141 MMOL/L (136-145)
--- NOTE | 2017-09-08 10:11 | Nephrology Progress Note ---
Assessment/Plan Assessment Renal failure, likely pre Renal resolved Acute on chronic CHF Atrial Fib with slow Vent rate Lower extremity cellulitis / venous stasis left leg cellulitis Chest pain DM HLD HTN now presenting with hypotension Obesity s/p CABGS Plan Plan: Optimize cardiac and pulmonary status monitor renal parameters and lytes avoid nephrotoxics per consultants Subjective ROS Limited/Unobtainable: No Constitutional: Reports: malaise Objective Objective Last 24 Hour Vital Signs Date Time Temp Pulse Resp B/P (MAP) Pulse Ox O2 Delivery O2 Flow Rate FiO2 09/08/17 08:23 97 Nasal Cannula 2.0 28 09/08/17 08:23 Nasal Cannula 2.0 28 09/08/17 08:22 82 16 Nasal Cannula 2.0 28 09/08/17 08:00 97.5 98 20 123/69 95 Room Air 09/08/17 07:51 96 09/08/17 04:00 97.5 90 20 117/68 95 Nasal Cannula 2.0 09/08/17 04:00 82 09/08/17 00:00 125 09/08/17 00:00 97.0 84 18 107/70 94 Nasal Cannula 2.0 09/07/17 20:00 97.0 87 20 105/58 94 09/07/17 20:00 82 09/07/17 16:00 79 09/07/17 16:00 98.8 86 20 111/68 97 Room Air 09/07/17 12:00 98 09/07/17 12:00 96.9 95 20 110/65 95 Room Air Intake and Output 09/07/17 09/08/17 19:00 07:00 Intake Total 730 ml Output Total 2100 ml 500 ml Balance -1370 ml -500 ml Intake Oral 730 ml Output Urine Total 2100 ml 500 ml Laboratory Tests 09/07/17 20:45: Vancomycin Level Trough 9.2 09/08/17 08:36: White Blood Count 3.1L, Red Blood Count 3.66L, Hemoglobin 11.2L, Hematocrit 34.0L, Mean Corpuscular Volume 93, Mean Corpuscular Hemoglobin 30.6, Mean Corpuscular Hemoglobin Concent 32.9, Red Cell Distribution Width 13.2, Platelet Count 122L, Mean Platelet Volume 6.1L, Neutrophils (%) (Auto) , Lymphocytes (%) (Auto) , Monocytes (%) (Auto) , Eosinophils (%) (Auto) , Basophils (%) (Auto) , Neutrophils % (Manual) [Pending], Lymphocytes % (Manual) [Pending], Platelet Estimate [Pending], Platelet Morphology [Pending], Sodium Level 141, Potassium Level 3.5, Chloride Level 97L, Carbon Dioxide Level 38H, Anion Gap 6, Blood Urea Nitrogen 24H, Creatinine 1.2, Estimat Glomerular Filtration Rate , Glucose Level 164H, Calcium Level 8.7 Height (Feet): 5 Height (Inches): 8.00 Weight (Pounds): 216 General Appearance: no apparent distress Respiratory/Chest: decreased breath sounds Abdomen: soft, other - obese Extremities: other - unchanged Objective no change BRIAN SIFUENTES Sep 08, 2017 10:10
[2017-09-08] MEDS ORDERED: FUROSEMIDE40 MG ORAL (10:28)
[2017-09-08] MEDS ORDERED: LANSOPRAZOLE30 MG ORAL (10:28)
[2017-09-08] MEDS ORDERED: CEPHALEXIN500 MG ORAL (10:28)
[2017-09-08] MEDS ORDERED: DOXYCYCLINE MO100 M2 PO (10:28)
[2017-09-08] MEDS ORDERED: ELIQUIS5 MG PO (10:28)
--- NOTE | 2017-09-08 11:31 | Cardiac Electrophysiology PN ---
Assessment/Plan Assessment/Plan 1. Chest pain and history of CABG. ECG inferolateral T inversion. Troponins are negative. Echocardiogram Nl EF. 2. Atrial fibrillation with slow ventricular response. On Lovenox 100 sq bid 3. Congestive heart failure due to diastolic dysfunction and bilateral lower extremity edema.On Lasix 40 mg po b.i.d. 4. Diabetes. 5. Foot ulcer. Vancomycin. ROWDY RN and Dr Pina Subjective Subjective Diuresing well. Feeling better.Had chest pain earlier that resolved quickly. Leg edema is improving. RN at bedside. Objective Last 24 Hour Vital Signs Date Time Temp Pulse Resp B/P (MAP) Pulse Ox O2 Delivery O2 Flow Rate FiO2 09/08/17 08:23 97 Nasal Cannula 2.0 28 09/08/17 08:23 Nasal Cannula 2.0 28 09/08/17 08:22 82 16 Nasal Cannula 2.0 28 09/08/17 08:00 97.5 98 20 123/69 95 Room Air 09/08/17 07:51 96 09/08/17 04:00 97.5 90 20 117/68 95 Nasal Cannula 2.0 09/08/17 04:00 82 09/08/17 00:00 125 09/08/17 00:00 97.0 84 18 107/70 94 Nasal Cannula 2.0 09/07/17 20:00 97.0 87 20 105/58 94 09/07/17 20:00 82 09/07/17 16:00 79 09/07/17 16:00 98.8 86 20 111/68 97 Room Air 09/07/17 12:00 98 09/07/17 12:00 96.9 95 20 110/65 95 Room Air Intake and Output 09/07/17 09/08/17 19:00 07:00 Intake Total 730 ml Output Total 2100 ml 500 ml Balance -1370 ml -500 ml Intake Oral 730 ml Output Urine Total 2100 ml 500 ml Laboratory Tests Test 09/07/17 20:45 09/08/17 08:36 Vancomycin Level Trough 9.2 ug/mL (5.0-12.0) White Blood Count 3.1 K/UL (4.8-10.8) L Red Blood Count 3.66 M/UL (4.70-6.10) L Hemoglobin 11.2 G/DL (14.2-18.0) L Hematocrit 34.0 % (42.0-52.0) L Mean Corpuscular Volume 93 FL (80-99) Mean Corpuscular Hemoglobin 30.6 PG (27.0-31.0) Mean Corpuscular Hemoglobin Concent 32.9 G/DL (32.0-36.0) Red Cell Distribution Width 13.2 % (11.6-14.8) Platelet Count 122 K/UL (150-450) L Mean Platelet Volume 6.1 FL (6.5-10.1) L Neutrophils (%) (Auto) % (45.0-75.0) Lymphocytes (%) (Auto) % (20.0-45.0) Monocytes (%) (Auto) % (1.0-10.0) Eosinophils (%) (Auto) % (0.0-3.0) Basophils (%) (Auto) % (0.0-2.0) Differential Total Cells Counted 100 Neutrophils % (Manual) 62 % (45-75) Lymphocytes % (Manual) 27 % (20-45) Monocytes % (Manual) 5 % (1-10) Eosinophils % (Manual) 6 % (0-3) H Basophils % (Manual) 0 % (0-2) Band Neutrophils 0 % (0-8) Platelet Estimate Decreased L Platelet Morphology Normal Hypochromasia 1+ Sodium Level 141 MMOL/L (136-145) Potassium Level 3.5 MMOL/L (3.5-5.1) Chloride Level 97 MMOL/L (98-107) L Carbon Dioxide Level 38 MMOL/L (21-32) H Anion Gap 6 mmol/L (5-15) Blood Urea Nitrogen 24 mg/dL (7-18) H Creatinine 1.2 MG/DL (0.55-1.30) Estimat Glomerular Filtration Rate mL/min (>60) Glucose Level 164 MG/DL (74-106) H Calcium Level 8.7 MG/DL (8.5-10.1) Objective HEAD AND NECK: Shows no JVD. LUNGS: Decreased breath sounds. CARDIOVASCULAR: Irregular S1, S2 with no gallop or murmur. Sternotomy scar is intact. ABDOMEN: Soft. EXTREMITIES: 2+ pitting edema as well as ulcer in the left ankle. LUIS MANUEL PATHAK Sep 08, 2017 11:31
[2017-09-08 12:00] VITALS: BP 118/62
[2017-09-08] MEDS ORDERED: NS 275ml ONE (13:44)
[2017-09-08] MEDS ORDERED: Tubing IV Secondary IV ONE (13:44)
--- NOTE | 2017-09-08 13:55 | Discharge Summary ---
Discharge Summary Hospital Course Date of Admission Sep 04, 2017 at 19:02 Date of Discharge Sep 08, 2017 at 13:45 Admitting Diagnosis hypotension, chf exacerbation Reason for Hospitalization: CHF exacerbation, LLE ulcer with cellulitis HPI 82 year old male with past medical history of chronic afib, CAD s/p CABG, HTN, DM, HLD, recent influenza infection presents with chest pain and worsening bilateral lower extremity redness and swelling. States pain is substernal and associated with shortness of breath. patient was recently hospitalized at [facility] 08/10/17-08/19/17 with influenza infection and respiratory failure, requiring intubation. patient with blistering of left foot, seen by podiatry yesterday and started on antibiotics. Notes worsening edema of the left foot > right with significant pain. No fevers, chills, nausea, vomiting or abdominal pain. Consultations Cardiology, Infectious disease, Surgery Hospital Course Pt was admitted to [facility]. He was diuresed with lasix IV. Pt had improvement in fluid status and SCr also improved. Pt was treated with IV vanco and cefepime for for L foot ulcer with LLE cellulitis. Surgery was consulted and stated no debridement necessary. Pt was transitioned to PO antibiotics on discharge. Discharge physical exam: General: alert, cooperative, no distress, appears stated age Head: normocephalic, without obvious abnormality, atraumatic Eyes: conjunctivae/corneas clear. PERRL, EOM's intact Throat: lips, mucosa, and tongue normal. MMM Neck: supple, symmetrical, trachea midline, and no JVD Lungs: clear to auscultation bilaterally Heart: regular rate and rhythm, S1, S2 normal, no murmur, click, rub or gallop Abdomen: soft, non-tender, non-distended, bowel sounds normal; no masses or organomegaly Extremities: extremities normal, atraumatic, no cyanosis, +ble edema Pulses: 2+ and symmetric Skin: skin color, texture, turgor normal; left lower extremity medial malleolus 3cm superficial wound, no purulent drainage noted Discharge diagnoses: (1) Acute on chronic diastolic (congestive) heart failure ICD Codes: I50.33 - Acute on chronic diastolic (congestive) heart failure SNOMED: 67697187, 081749130 (2) Venous stasis ulcer ICD Codes: I83.009 - Varicose veins of unspecified lower extremity with ulcer of unspecified site; L97.909 - Non-pressure chronic ulcer of unspecified part of unspecified lower leg with unspecified severity SNOMED: 769671702, 03448262, 91902012 (3) Left leg cellulitis ICD Codes: L03.116 - Cellulitis of left lower limb SNOMED: 822363724 (4) Chest pain ICD Codes: R07.9 - Chest pain, unspecified SNOMED: 96186717 (5) YUVAL (acute kidney injury) ICD Codes: N17.9 - Acute kidney failure, unspecified SNOMED: 78444033 (6) Cardiorenal syndrome ICD Codes: I13.10 - Hypertensive heart and chronic kidney disease without heart failure, with stage 1 through stage 4 chronic kidney disease, or unspecified chronic kidney disease SNOMED: 322408728 (7) HTN (hypertension) ICD Codes: I10 - Essential (primary) hypertension SNOMED: 77073527 (8) HLD (hyperlipidemia) ICD Codes: E78.5 - Hyperlipidemia, unspecified SNOMED: 21415150 (9) Obesity ICD Codes: E66.9 - Obesity, unspecified SNOMED: 708594084 (10) Hyperkalemia ICD Codes: E87.5 - Hyperkalemia SNOMED: 95245887 (11) Atrial fibrillation with slow ventricular response ICD Codes: I48.91 - Unspecified atrial fibrillation SNOMED: 27887579, 099958005 (12) CAD s/p CABG Discharge Medications New Medications: Apixaban (Eliquis) 5 Mg Tablet 5 MG PO BID for 30 Days, #60 TAB 2 Refills Cephalexin* (Keflex*) 500 Mg Capsule 500 MG ORAL EVERY 6 HOURS for 7 Days, #28 CAP 0 Refills Doxycycline Monohydrate (Doxycycline Monohydrate) 100 Mg Tablet 100 MG PO BID for 7 Days, #14 TAB 0 Refills Furosemide* (Lasix*) 40 Mg Tablet 40 MG ORAL EVERY 12 HOURS for 30 Days, #60 TAB Lansoprazole* (Lansoprazole*) 30 Mg Capsule.dr 30 MG ORAL DAILY for 30 Days, #30 CAP 3 Refills Continued Medications: Lubiprostone (Amitiza*) 24 Mcg Capsule 24 MCG ORAL DAILY PRN for Constipation, CAP Metformin Hcl* (Metformin Hcl*) 500 Mg Tablet 500 MG ORAL TWICE A DAY, TAB Tamsulosin Hcl (Tamsulosin Hcl*) 0.4 Mg Cap.er.24h 0.4 MG ORAL BEDTIME, CAP Discontinued Medications: Furosemide* (Lasix*) 20 Mg Tablet 20 MG ORAL DAILY, TAB Discharge Condition Upon Discharge: stable Discharge Disposition Patient was discharged to Home with Home Health(06) Discharge Diagnoses: Yovani Mcleod M.D. Sep 08, 2017 13:55
--- NOTE | 2017-09-08 16:34 | General Surgery Progress Note ---
General Surgery-Progress Note Subjective Symptoms: improved Additional Comments late entry for patient encounter at 10:00AM edema improved. no pain. comfortable. Objective Last 24 Hour Vital Signs Date Time Temp Pulse Resp B/P (MAP) Pulse Ox O2 Delivery O2 Flow Rate FiO2 09/08/17 12:00 97.5 87 20 118/62 95 Room Air 09/08/17 11:31 87 09/08/17 08:23 97 Nasal Cannula 2.0 28 09/08/17 08:23 Nasal Cannula 2.0 28 09/08/17 08:22 82 16 Nasal Cannula 2.0 28 09/08/17 08:00 97.5 98 20 123/69 95 Room Air 09/08/17 07:51 96 09/08/17 04:00 97.5 90 20 117/68 95 Nasal Cannula 2.0 09/08/17 04:00 82 09/08/17 00:00 125 09/08/17 00:00 97.0 84 18 107/70 94 Nasal Cannula 2.0 09/07/17 20:00 97.0 87 20 105/58 94 09/07/17 20:00 82 I&O Intake and Output 09/07/17 09/08/17 19:00 07:00 Intake Total 730 ml Output Total 2100 ml 500 ml Balance -1370 ml -500 ml Intake Oral 730 ml Output Urine Total 2100 ml 500 ml Dressing: dry Wound: clean, dry Drains: none Cardiovascular: RSR Respiratory: clear Abdomen: soft, flat, non-tender, present bowel sounds Extremities: edema - improving. wound c/d/i Laboratory Tests Test 09/07/17 20:45 09/08/17 08:36 Vancomycin Level Trough 9.2 ug/mL (5.0-12.0) White Blood Count 3.1 K/UL (4.8-10.8) L Red Blood Count 3.66 M/UL (4.70-6.10) L Hemoglobin 11.2 G/DL (14.2-18.0) L Hematocrit 34.0 % (42.0-52.0) L Mean Corpuscular Volume 93 FL (80-99) Mean Corpuscular Hemoglobin 30.6 PG (27.0-31.0) Mean Corpuscular Hemoglobin Concent 32.9 G/DL (32.0-36.0) Red Cell Distribution Width 13.2 % (11.6-14.8) Platelet Count 122 K/UL (150-450) L Mean Platelet Volume 6.1 FL (6.5-10.1) L Neutrophils (%) (Auto) % (45.0-75.0) Lymphocytes (%) (Auto) % (20.0-45.0) Monocytes (%) (Auto) % (1.0-10.0) Eosinophils (%) (Auto) % (0.0-3.0) Basophils (%) (Auto) % (0.0-2.0) Differential Total Cells Counted 100 Neutrophils % (Manual) 62 % (45-75) Lymphocytes % (Manual) 27 % (20-45) Monocytes % (Manual) 5 % (1-10) Eosinophils % (Manual) 6 % (0-3) H Basophils % (Manual) 0 % (0-2) Band Neutrophils 0 % (0-8) Platelet Estimate Decreased L Platelet Morphology Normal Hypochromasia 1+ Sodium Level 141 MMOL/L (136-145) Potassium Level 3.5 MMOL/L (3.5-5.1) Chloride Level 97 MMOL/L (98-107) L Carbon Dioxide Level 38 MMOL/L (21-32) H Anion Gap 6 mmol/L (5-15) Blood Urea Nitrogen 24 mg/dL (7-18) H Creatinine 1.2 MG/DL (0.55-1.30) Estimat Glomerular Filtration Rate mL/min (>60) Glucose Level 164 MG/DL (74-106) H Calcium Level 8.7 MG/DL (8.5-10.1) Plan Problems: (1) Venous stasis ulcer Assessment & Plan: 82M with bilateral leg edema L>R with venous stasis ulcer on left medial malleolus. wound superficial and clean. erythema and cellulitis in left extremity improved. edema continues to improve and wound healing slowly wound clean. no acute surgical intervention necessary. continue with wound care. MUST keep legs elevated to reduce edema will improved as edema improves. pili jorge/c from surgical standpoint Jason Martinez Sep 08, 2017 16:34
== END 2017-09-08 13:45 | disposition home health service (06) | DRG 194 ==
LOC: EDBD 15:11 → EMR 15:20 → EDBEDREQ 16:35 → 2E 19:02
DX: I11.0 Hypertensive heart disease with heart failure (principal); E11.22 Type 2 diabetes mellitus with diabetic chronic kidney disease; D69.6 Thrombocytopenia, unspecified; L03.116 Cellulitis of left lower limb; L97.909 Non-pressure chronic ulcer of unspecified part of unspecified lower leg with unspecified severity; D64.9 Anemia, unspecified; I48.2 Chronic atrial fibrillation; I50.33 Acute on chronic diastolic (congestive) heart failure; E78.5 Hyperlipidemia, unspecified; Z79.84 Long term (current) use of oral hypoglycemic drugs; E66.9 Obesity, unspecified; I25.10 Atherosclerotic heart disease of native coronary artery without angina pectoris; Z95.1 Presence of aortocoronary bypass graft; I13.0 Hypertensive heart and chronic kidney disease with heart failure and stage 1 through stage 4 chronic kidney disease, or unspecified chronic kidney disease; N18.9 Chronic kidney disease, unspecified; L97.809 Non-pressure chronic ulcer of other part of unspecified lower leg with unspecified severity; I83.029 Varicose veins of left lower extremity with ulcer of unspecified site
CPT/HCPCS: 36415; 71045; 76775; 80048; 80053; 80061; 80162; 80202; 81001; 82550; 82553; 82962; 83036; 83735; 83880; 84100; 84300; 84439; 84443; 84484; 84550; 85007; 85025; 85651; 86140; 87070; 87205; 89050; 93005; 93306; 94664; 94760; 99285; J1815

== ENCOUNTER 2017-09-12 19:25 | Inpatient (IN) | payer OTHER, MEDICARE ==
[~2017-09-12] VITALS: Ht 167.6 cm; Wt 92.5 kg
[~2017-09-12 19:25] MED LIST changes: +AMITIZA24 MCG ORAL; +CEPHALEXIN500 MG ORAL; +DOXYCYCLINE MO100 M2 PO; +ELIQUIS5 MG PO; +FUROSEMIDE40 MG ORAL; +LANSOPRAZOLE30 MG ORAL
--- NOTE | 2017-09-12 19:57 | Emergency Room Report ---
History of Present Illness General Chief Complaint: Chest Pain Source: Patient Present Illness HPI 82-year-old male with a history of CHF, recently discharged from hospital 3 days ago Complains of midsternal and left sternal constant nonradiating chest tightness as well as cough with whitish sputum production and shortness of breath Symptoms just started 2 hours prior to arrival He is visibly uncomfortable and huffing and puffing for air He reports he has been on antibiotics for a left foot ulcer He reports that he used to have a lot of leg swelling prior to his last admission, but that has now improved greatly He denies any new leg pain or leg swelling denies fevers chills Denies hemoptysis Denies syncope Allergies: Coded Allergies: No Known Allergies (Unverified , 09/04/17) Patient History Past Medical History: see triage record Nursing Documentation-[facility] Hx Cardiac Problems: Yes Hx Hypertension: Yes Hx Diabetes: Yes Hx Cancer: No Hx Gastrointestinal Problems: No Hx Neurological Problems: No Review of Systems All Other Systems: negative except mentioned in HPI Physical Exam Vital Signs Date Time Temp Pulse Resp B/P (MAP) Pulse Ox O2 Delivery O2 Flow Rate FiO2 09/12/17 19:35 97.2 113 20 131/77 97 Room Air Sp02 EP Interpretation: reviewed, normal General Appearance: no apparent distress, alert, non-toxic Head: normocephalic Eyes: bilateral eye normal inspection, bilateral eye PERRL, bilateral eye EOMI ENT: normal ENT inspection, hearing grossly normal, normal pharynx, no angioedema, normal voice, moist mucus membranes Neck: normal inspection, full range of motion, supple, supple/symm/no masses Respiratory: chest non-tender, no respiratory distress - Positive moderate respirory distress with accessory muscle use and tachypnea as well as pursed lip breathing, wheezing - Positive wheezing in bilateral lung ivan primarily at bases with questionable rhonchi, chest symmetrical, palpation of chest normal Cardiovascular #1: normal peripheral pulses, regular rate, rhythm, no edema - 1 + bilateral lower extremity edema, lleft heel wound clean and dry and bandaged Cardiovascular #2: 2+ radial (R), 2+ radial (L) Gastrointestinal: normal inspection, non tender, soft, no mass, no guarding, no rebound Rectal: deferred Genitourinary: normal inspection, no CVA tenderness Musculoskeletal: back normal, gait/station normal, normal range of motion, non- tender, no calf tenderness Neurologic: alert, responsive, software test 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 fib, CHF on Eliquis and Lasix 40 mg twice a day Presents with chest pain [place] better with aspirin Lasix some oxygen Chest x-ray revealed evidence of CHF as did elevated BNP Troponin negative EKG with A. fib Patient had symptoms concerning for pneumonia with cough and thick sputum production Was treated for possible sepsis broad-spectrum antibiotics and blood cultures IV fluids were held due to his hypertension and known history of CHF Admitted for diagnosis CHF, possible pneumonia, chest pain EKG Diagnostic Results EP Interpretation: Atrial fib rate [address]; ST depressions lateral precordium Rate: tachycardiac Rhythm: other - A. fib ST Segments: other ASA given to the pt in ED: Yes Rhythm Strip Diag. Results EP Interpretation: yes Rhythm: other - A. fib Chest X-Ray Diagnostic Results Chest X-Ray Diagnostic Results : Chest X-Ray Ordered: Yes # of Views/Limited/Complete: 1 View Indication: Chest Pain EP Interpretation: Yes Interpretation: other - cardiomegaly, bilateral pulm vasc congestion Impression: Other - CM and pulm vasc congestion Electronically Signed by: Gabriella Briggs MD Last Vital Signs Date Time Temp Pulse Resp B/P (MAP) Pulse Ox O2 Delivery O2 Flow Rate FiO2 09/12/17 19:35 97.2 113 20 131/77 97 Room Air Status: improved Disposition: ADMITTED INPATIENT Condition: Stable GABRIELLA BRIGGS M.D Sep 12, 2017 19:57
[2017-09-12] MEDS ORDERED: Vancomycin 1.5gm/D5W 250ml 250 ML IVPB ONE (20:00)
[2017-09-12] MEDS ORDERED: Aspirin Baby 81mg ORAL ONE (20:00)
[2017-09-12] MEDS ORDERED: Zosyn 4.5gm inj ONE (20:42)
[2017-09-12 20:43] LABS: BASOPHILS % (AUTO) 0.6 % (0.0-2.0); HEMATOCRIT 41.1 % (42.0-52.0); LYMPHOCYTES % (AUTO) 10.4 % (20.0-45.0); MEAN CORPUSCULAR VOLUME 93 FL (80-99); MONOCYTES % (AUTO) 11.8 % (1.0-10.0); NEUTROPHILS % (AUTO) 76.2 % (45.0-75.0); PLATELET COUNT 163 K/UL (150-450); RED BLOOD COUNT 4.42 M/UL (4.70-6.10); RED CELL DISTRIBUTION WIDTH 13.8 % (11.6-14.8); WHITE BLOOD COUNT 6.9 K/UL (4.8-10.8)
[2017-09-12 20:56] LABS: ANION GAP 6 mmol/L (5-15); BLOOD UREA NITROGEN 22 mg/dL (7-18); CALCIUM 9.6 MG/DL (8.5-10.1); CARBON DIOXIDE 36 MMOL/L (21-32); CHLORIDE 99 MMOL/L (98-107); CREATININE 1.2 MG/DL (0.55-1.30); POTASSIUM 3.8 MMOL/L (3.5-5.1); SODIUM 141 MMOL/L (136-145)
[2017-09-12 21:00] VITALS: BP 143/84
[2017-09-12 21:11] LABS: ALANINE AMINOTRANSFERASE 34 U/L (12-78); ALBUMIN 3.8 G/DL (3.4-5.0); ALBUMIN/GLOBULIN RATIO 0.9 (1.0-2.7); ALKALINE PHOSPHATASE 75 U/L (46-116); ASPARTATE AMINO TRANSFERASE 22 U/L (15-37); BILIRUBIN,TOTAL 0.8 MG/DL (0.2-1.0); CKMB 0.6 NG/ML (0.0-3.6); CREATINE KINASE 23 U/L (26-308)
[2017-09-12] MEDS ORDERED: Piperacillin/Tazobactam 4.5 GM in NS 110 ML IV SCH (22:00)
[2017-09-12 23:11] VITALS: BP 119/71
[2017-09-13] VITALS (7 sets, daily range): BP systolic 99–131; BP diastolic 51–71
[2017-09-13 00:04] LABS: APPEARANCE,URINE CLEAR; BILIRUBIN, URINE NEGATIVE (NEGATIVE); COLOR,URINE PALE YELLOW; GLUCOSE, URINE (UA) NEGATIVE (NEGATIVE); KETONES,URINE NEGATIVE (NEGATIVE); NITRITE,URINE NEGATIVE (NEGATIVE); PH,URINE 5 (4.5-8.0); PROTEIN,URINE NEGATIVE (NEGATIVE); UROBILINOGEN,URINE NORMAL MG/DL (0.0-1.0)
[2017-09-13 00:13] LABS: LEUKOCYTE ESTERASE ,URINE 2+ (NEGATIVE)
[2017-09-13] MEDS ORDERED: Miralax 17gm pkt ORAL PRN (01:45)
[2017-09-13] MEDS ORDERED: Albuterol/Ipratropium 3ml neb HHN PRN (01:45)
[2017-09-13] MEDS ORDERED: Sodium Chloride 500ML 500 ML IV ONE (02:15)
[2017-09-13] MEDS ORDERED: Vancomycin 1gm in D5W 275ml IVPB SCH ×2 (03:00→08:00)
[2017-09-13] MEDS ORDERED: LASIX40 MG ORAL (03:16)
[2017-09-13] MEDS ORDERED: AMITIZA24 MCG ORAL (03:16)
[2017-09-13] MEDS: Piperacillin/Tazobactam 4.5 GM in NS 110 ML IVPB SCH ×3 (06:00→22:45)
[2017-09-13] MEDS: NovoLOG Insulin Flexpen SUBQ SCH ×4 (06:30→20:49)
[2017-09-13] MEDS: Docusate 100mg cap ORAL SCH ×2 (08:34→20:47)
[2017-09-13] MEDS: Eliquis 2.5mg tablet ORAL SCH ×2 (08:36→18:08)
--- NOTE | 2017-09-13 09:48 | Cardiac Electrophysiology PN ---
Subjective Subjective [id number] Objective Last 24 Hour Vital Signs Date Time Temp Pulse Resp B/P (MAP) Pulse Ox O2 Delivery O2 Flow Rate FiO2 09/13/17 08:00 96.1 93 19 106/65 99 Nasal Cannula 2.0 09/13/17 04:00 94 09/13/17 04:00 99.1 97 20 104/55 99 Room Air 2.0 09/13/17 02:50 97.2 96 20 99/51 96 Room Air 2.0 09/13/17 02:30 97.2 96 20 99/51 96 Room Air 2.0 09/13/17 01:49 97.2 103 20 101/60 95 Room Air 3.0 09/12/17 23:11 97.2 120 20 119/71 97 Room Air 09/12/17 21:00 97.2 114 20 143/84 97 Nasal Cannula 3.0 09/12/17 19:40 113 20 Room Air 09/12/17 19:35 97.2 113 20 131/77 97 Room Air Intake and Output 09/12/17 09/13/17 19:00 07:00 Output Total 700 ml Balance -700 ml Output Urine Total 700 ml # Voids 1 # Bowel Movements 2 Laboratory Tests Test 09/12/17 20:22 09/12/17 23:30 09/13/17 00:16 White Blood Count 6.9 K/UL (4.8-10.8) Red Blood Count 4.42 M/UL (4.70-6.10) L Hemoglobin 13.0 G/DL (14.2-18.0) L Hematocrit 41.1 % (42.0-52.0) L Mean Corpuscular Volume 93 FL (80-99) Mean Corpuscular Hemoglobin 29.5 PG (27.0-31.0) Mean Corpuscular Hemoglobin Concent 31.6 G/DL (32.0-36.0) L Red Cell Distribution Width 13.8 % (11.6-14.8) Platelet Count 163 K/UL (150-450) Mean Platelet Volume 5.7 FL (6.5-10.1) L Neutrophils (%) (Auto) 76.2 % (45.0-75.0) H Lymphocytes (%) (Auto) 10.4 % (20.0-45.0) L Monocytes (%) (Auto) 11.8 % (1.0-10.0) H Eosinophils (%) (Auto) 1.0 % (0.0-3.0) Basophils (%) (Auto) 0.6 % (0.0-2.0) Sodium Level 141 MMOL/L (136-145) Potassium Level 3.8 MMOL/L (3.5-5.1) Chloride Level 99 MMOL/L (98-107) Carbon Dioxide Level 36 MMOL/L (21-32) H Anion Gap 6 mmol/L (5-15) Blood Urea Nitrogen 22 mg/dL (7-18) H Creatinine 1.2 MG/DL (0.55-1.30) Estimat Glomerular Filtration Rate mL/min (>60) Glucose Level 151 MG/DL (74-106) H Lactic Acid Level 2.30 mmol/L (0.66-2.22) H 3.10 mmol/L (0.66-2.22) H Calcium Level 9.6 MG/DL (8.5-10.1) Magnesium Level 1.9 MG/DL (1.8-2.4) Total Bilirubin 0.8 MG/DL (0.2-1.0) Aspartate Amino Transf (AST/SGOT) 22 U/L (15-37) Alanine Aminotransferase (ALT/SGPT) 34 U/L (12-78) Alkaline Phosphatase 75 U/L (46-116) Total Creatine Kinase 23 U/L (26-308) L Creatine Kinase MB 0.6 NG/ML (0.0-3.6) Creatine Kinase MB Relative Index 2.6 Troponin I 0.014 ng/mL (0.000-0.056) Pro-B-Type Natriuretic Peptide 3310 pg/mL (0-125) H Total Protein 8.1 G/DL (6.4-8.2) Albumin 3.8 G/DL (3.4-5.0) Globulin 4.3 g/dL Albumin/Globulin Ratio 0.9 (1.0-2.7) L Urine Color Pale yellow Urine Appearance Clear Urine pH 5 (4.5-8.0) Urine Specific [place] 1.010 (1.005-1.035) Urine Protein Negative (NEGATIVE) Urine Glucose (UA) Negative (NEGATIVE) Urine Ketones Negative (NEGATIVE) Urine Occult Blood 1+ (NEGATIVE) H Urine Nitrite Negative (NEGATIVE) Urine Bilirubin Negative (NEGATIVE) Urine Urobilinogen Normal MG/DL (0.0-1.0) Urine Leukocyte Esterase 2+ (NEGATIVE) H Urine RBC 0-2 /HPF (0 - 0) H Urine WBC 20-30 /HPF (0 - 0) H Urine Squamous Epithelial Cells Few /LPF (NONE/OCC) Urine Bacteria Few /HPF (NONE) Microbiology Date/Time Source Procedure Growth Status 09/12/17 21:40 Nasal Nares Influenza Types A,B Antigen (ROOPA) - Final Complete LUIS MANUEL PATHAK Sep 13, 2017 09:48
[2017-09-13 11:09] LABS: BASOPHILS % (AUTO) 0.5 % (0.0-2.0); EOSINOPHILS % (AUTO) 1.9 % (0.0-3.0); HEMATOCRIT 36.3 % (42.0-52.0); HEMOGLOBIN 11.5 G/DL (14.2-18.0); LYMPHOCYTES % (AUTO) 17.1 % (20.0-45.0); MEAN CORPUSCULAR VOLUME 94 FL (80-99); MONOCYTES % (AUTO) 13.5 % (1.0-10.0); NEUTROPHILS % (AUTO) 67.1 % (45.0-75.0); PLATELET COUNT 125 K/UL (150-450); RED BLOOD COUNT 3.87 M/UL (4.70-6.10); RED CELL DISTRIBUTION WIDTH 13.5 % (11.6-14.8); WHITE BLOOD COUNT 5.5 K/UL (4.8-10.8)
[2017-09-13] MEDS: Digoxin 0.125mg tab ORAL SCH (11:14)
[2017-09-13 11:57] LABS: ANION GAP 8 mmol/L (5-15); BLOOD UREA NITROGEN 20 mg/dL (7-18); CALCIUM 8.5 MG/DL (8.5-10.1); CARBON DIOXIDE 35 MMOL/L (21-32); CHLORIDE 100 MMOL/L (98-107); CREATININE 1.2 MG/DL (0.55-1.30); POTASSIUM 3.1 MMOL/L (3.5-5.1); SODIUM 143 MMOL/L (136-145)
--- NOTE | 2017-09-13 12:42 | Diagnostic Imaging Report ---
Indication: Chest pain Technique: One view of the chest Comparison: 09/04/2017 Findings: There is bilateral interstitial prominence and central bronchial wall thickening. To some extent evident previously but somewhat more striking on the current exam. It is uncertain whether this is due to progression of disease or artifactual due to to technical differences. There is left suprahilar scarring again demonstrated No focal airspace consolidation. The pleural spaces are clear. The heart size is upper limits normal. Evidence of prior CABG Impression: Bilateral interstitial disease again demonstrated. Suspect chronic, but equivocally increased from prior exam so superimposed acute process also possible. Correlate with clinical findings
[2017-09-13] MEDS: dilTIAZem HCl 30mg tab ORAL SCH ×2 (14:27→22:46)
--- NOTE | 2017-09-13 15:13 | History and Physical ---
History of Present Illness General Date patient seen: Sep 13, 2017 Time patient seen: 15:13 Reason for Hospitalization: Chest Pain, SOB Present Illness HPI 82 year old male with past medical history of chronic afib, CAD s/p CABG, HTN, DM, HLD, recent influenza infection presents with chest pain and SOB. Pt recently admitted 09/04 and discharged 09/08. He was treated for CHF with lasix IV and LLE wound w/ cellulitis w/ IV antibiotics. He was discharged on lasix PO and PO antibiotics. Pt now returns w/ recurrent chest pain described as midsternal constant nonradiating chest tightness with associated SOB and cough productive of white sputum. Symptoms started 2 hours prior to arrival to ER. BLE swelling has improved from prior. Denies f/c, n/v, d/c, abd pain. In ER, pt noted to be visibly uncomfortable, huffing and puffing for air. There was concern for CHF and pneumonia. Pt was given lasix IV, as well as vanco and zosyn in ED. Allergies: Coded Allergies: No Known Allergies (Unverified , 09/04/17) Medication History Scheduled Apixaban (Eliquis), 5 MG PO BID Cephalexin* (Keflex*), 500 MG ORAL EVERY 6 HOURS Doxycycline Monohydrate (Doxycycline Monohydrate), 100 MG PO BID Furosemide* (Lasix*), 40 MG ORAL EVERY 12 HOURS Furosemide* (Lasix*), 40 MG ORAL EVERY 12 HOURS, (Reported) Lansoprazole* (Lansoprazole*), 30 MG ORAL DAILY Lubiprostone (Amitiza*), 24 MCG ORAL EVERY 12 HOURS, (Reported) Metformin Hcl* (Metformin Hcl*), 500 MG ORAL TWICE A DAY, (Reported) Tamsulosin Hcl (Tamsulosin Hcl*), 0.4 MG ORAL BEDTIME, (Reported) Scheduled PRN Lubiprostone (Amitiza*), 24 MCG ORAL DAILY PRN for Constipation, (Reported) Discontinued Medications Furosemide* (Lasix*), 20 MG ORAL DAILY, (Reported) Discontinued Reason: Medication dose changed Patient History History Provided By: Patient, Family Member, Medical Record Healthcare decision maker [place] - Son Resuscitation status Advanced Directive on File Past Medical/Surgical History Past Medical/Surgical History: (1) Chronic diastolic (congestive) heart failure (2) CAD s/p CABG (3) Atrial fibrillation with slow ventricular response (4) HLD (hyperlipidemia) (5) HTN (hypertension) (6) Obesity Family History Family History: Patient reports no known family medical history. Social History Social History: (1) Lives with family Review of Systems Constitutional: Reports: weakness Eye: Reports: no symptoms ENT: Reports: no symptoms Respiratory: Reports: cough, shortness of breath Cardiovascular: Reports: chest pain Gastrointestinal: Reports: no symptoms Genitourinary: Reports: no symptoms Musculoskeletal: Reports: no symptoms Skin: Reports: no symptoms Psychiatric: Reports: no symptoms Neurological: Reports: no symptoms Endocrine: Reports: no symptoms Hematologic/Lymphatic: Reports: no symptoms Physical Exam Physical Exam Narrative General: alert, cooperative, no distress, appears stated age Head: normocephalic, without obvious abnormality, atraumatic Eyes: conjunctivae/corneas clear. PERRL, EOM's intact Throat: lips, mucosa, and tongue normal. MMM Neck: supple, symmetrical, trachea midline, and +JVD Lungs: +crackles b/l Heart: regular rate and rhythm, S1, S2 normal, no murmur, click, rub or gallop Abdomen: soft, non-tender, non-distended, bowel sounds normal Extremities: extremities normal, atraumatic, no cyanosis. 1+ bilateral lower extremity edema, left foot wound c/d/i Pulses: 2+ and symmetric Skin: skin color, texture, turgor normal; no rashes or lesions Neurologic: grossly normal, no focal deficits Last 24 Hour Vital Signs Date Time Temp Pulse Resp B/P (MAP) Pulse Ox O2 Delivery O2 Flow Rate FiO2 09/13/17 14:27 68 104/71 09/13/17 12:00 104 09/13/17 12:00 96.8 68 19 104/71 97 Nasal Cannula 2.0 09/13/17 11:14 100 09/13/17 08:00 98 09/13/17 08:00 96.1 93 19 106/65 99 Nasal Cannula 2.0 09/13/17 04:00 94 09/13/17 04:00 99.1 97 20 104/55 99 Room Air 2.0 09/13/17 02:50 97.2 96 20 99/51 96 Room Air 2.0 09/13/17 02:30 97.2 96 20 99/51 96 Room Air 2.0 09/13/17 01:49 97.2 103 20 101/60 95 Room Air 3.0 09/12/17 23:11 97.2 120 20 119/71 97 Room Air 09/12/17 21:00 97.2 114 20 143/84 97 Nasal Cannula 3.0 09/12/17 19:40 113 20 Room Air 09/12/17 19:35 97.2 113 20 131/77 97 Room Air Intake and Output 09/12/17 09/13/17 19:00 07:00 Intake Total 27.5 ml Output Total 700 ml Balance -672.5 ml Intake IV Total 27.5 ml Output Urine Total 700 ml # Voids 1 # Bowel Movements 2 Laboratory Tests Test 09/12/17 20:22 09/12/17 23:30 09/13/17 00:16 09/13/17 10:15 White Blood Count 6.9 K/UL (4.8-10.8) 5.5 K/UL (4.8-10.8) Red Blood Count 4.42 M/UL (4.70-6.10) L 3.87 M/UL (4.70-6.10) L Hemoglobin 13.0 G/DL (14.2-18.0) L 11.5 G/DL (14.2-18.0) L Hematocrit 41.1 % (42.0-52.0) L 36.3 % (42.0-52.0) L Mean Corpuscular Volume 93 FL (80-99) 94 FL (80-99) Mean Corpuscular Hemoglobin 29.5 PG (27.0-31.0) 29.8 PG (27.0-31.0) Mean Corpuscular Hemoglobin Concent 31.6 G/DL (32.0-36.0) L 31.7 G/DL (32.0-36.0) L Red Cell Distribution Width 13.8 % (11.6-14.8) 13.5 % (11.6-14.8) Platelet Count 163 K/UL (150-450) 125 K/UL (150-450) L Mean Platelet Volume 5.7 FL (6.5-10.1) L 5.8 FL (6.5-10.1) L Neutrophils (%) (Auto) 76.2 % (45.0-75.0) H 67.1 % (45.0-75.0) Lymphocytes (%) (Auto) 10.4 % (20.0-45.0) L 17.1 % (20.0-45.0) L Monocytes (%) (Auto) 11.8 % (1.0-10.0) H 13.5 % (1.0-10.0) H Eosinophils (%) (Auto) 1.0 % (0.0-3.0) 1.9 % (0.0-3.0) Basophils (%) (Auto) 0.6 % (0.0-2.0) 0.5 % (0.0-2.0) Sodium Level 141 MMOL/L (136-145) 143 MMOL/L (136-145) Potassium Level 3.8 MMOL/L (3.5-5.1) 3.1 MMOL/L (3.5-5.1) L Chloride Level 99 MMOL/L (98-107) 100 MMOL/L (98-107) Carbon Dioxide Level 36 MMOL/L (21-32) H 35 MMOL/L (21-32) H Anion Gap 6 mmol/L (5-15) 8 mmol/L (5-15) Blood Urea Nitrogen 22 mg/dL (7-18) H 20 mg/dL (7-18) H Creatinine 1.2 MG/DL (0.55-1.30) 1.2 MG/DL (0.55-1.30) Estimat Glomerular Filtration Rate mL/min (>60) mL/min (>60) Glucose Level 151 MG/DL (74-106) H 189 MG/DL (74-106) H Lactic Acid Level 2.30 mmol/L (0.66-2.22) H 3.10 mmol/L (0.66-2.22) H Calcium Level 9.6 MG/DL (8.5-10.1) 8.5 MG/DL (8.5-10.1) Magnesium Level 1.9 MG/DL (1.8-2.4) 1.6 MG/DL (1.8-2.4) L Total Bilirubin 0.8 MG/DL (0.2-1.0) Aspartate Amino Transf (AST/SGOT) 22 U/L (15-37) Alanine Aminotransferase (ALT/SGPT) 34 U/L (12-78) Alkaline Phosphatase 75 U/L (46-116) Total Creatine Kinase 23 U/L (26-308) L Creatine Kinase MB 0.6 NG/ML (0.0-3.6) Creatine Kinase MB Relative Index 2.6 Troponin I 0.014 ng/mL (0.000-0.056) 0.022 ng/mL (0.000-0.056) Pro-B-Type Natriuretic Peptide 3310 pg/mL (0-125) H Total Protein 8.1 G/DL (6.4-8.2) Albumin 3.8 G/DL (3.4-5.0) Globulin 4.3 g/dL Albumin/Globulin Ratio 0.9 (1.0-2.7) L Urine Color Pale yellow Urine Appearance Clear Urine pH 5 (4.5-8.0) Urine Specific [place] 1.010 (1.005-1.035) Urine Protein Negative (NEGATIVE) Urine Glucose (UA) Negative (NEGATIVE) Urine Ketones Negative (NEGATIVE) Urine Occult Blood 1+ (NEGATIVE) H Urine Nitrite Negative (NEGATIVE) Urine Bilirubin Negative (NEGATIVE) Urine Urobilinogen Normal MG/DL (0.0-1.0) Urine Leukocyte Esterase 2+ (NEGATIVE) H Urine RBC 0-2 /HPF (0 - 0) H Urine WBC 20-30 /HPF (0 - 0) H Urine Squamous Epithelial Cells Few /LPF (NONE/OCC) Urine Bacteria Few /HPF (NONE) Phosphorus Level 5.0 MG/DL (2.5-4.9) H Test 09/13/17 12:00 Troponin I 0.027 ng/mL (0.000-0.056) Microbiology Date/Time Source Procedure Growth Status 09/12/17 21:40 Nasal Nares Influenza Types A,B Antigen (ROOPA) - Final Complete Height (Feet): 5 Height (Inches): 6.00 Weight (Pounds): 210 Medications Current Medications Medications (Trade) Dose Ordered Sig/Sara Route PRN Reason Start Time Stop Time Status Last Admin Dose Admin Acetaminophen (Tylenol) 650 mg Q4H PRN ORAL Mild Pain (Pain Scale 1-3) 09/13/17 01:45 10/13/17 01:44 Acetaminophen (Tylenol) 650 mg Q4H PRN ORAL fever 09/13/17 01:45 10/13/17 01:44 Albuterol/ Ipratropium (Albuterol/ Ipratropium) 3 ml Q4H PRN HHN Shortness of Breath 09/13/17 01:45 09/18/17 01:44 Apixaban (Eliquis) 5 mg BID ORAL 09/13/17 09:00 10/13/17 08:59 09/13/17 08:36 Bisacodyl (Dulcolax) 10 mg DAILYPRN PRN RECTAL Constipation 09/13/17 01:45 10/13/17 01:44 Dextrose (Dextrose 50%) STAT PRN IV Hypoglycemia 09/13/17 02:00 10/13/17 01:59 Digoxin (Lanoxin) 0.125 mg DAILY ORAL 09/13/17 11:00 10/13/17 10:59 09/13/17 11:14 Diltiazem HCl (Cardizem) 30 mg EVERY 8 HOURS ORAL 09/13/17 14:00 10/13/17 13:59 09/13/17 14:27 Docusate Sodium (Colace) 100 mg EVERY 12 HOURS ORAL 09/13/17 09:00 10/13/17 08:59 09/13/17 08:34 Furosemide (Lasix) 40 mg EVERY 12 HOURS IV 09/13/17 09:00 10/13/17 08:59 09/13/17 08:36 Insulin Aspart (NovoLOG) BEFORE MEALS AND HS SUBQ 09/13/17 06:30 10/13/17 06:29 09/13/17 11:19 Lansoprazole (Prevacid) 30 mg DAILY ORAL 09/13/17 09:00 10/13/17 08:59 09/13/17 08:34 Magnesium Sulfate 100 ml @ 100 mls/hr Q1H IVPB 09/13/17 15:15 09/13/17 18:14 UNV Ondansetron HCl (Zofran) 4 mg Q6H PRN IVP Nausea & Vomiting 09/13/17 01:45 10/13/17 01:44 Piperacillin Sod/ Tazobactam Sod 4.5 gm/Sodium Chloride 110 ml @ 27.5 mls/hr EVERY 8 HOURS IVPB 09/13/17 06:00 09/20/17 05:59 09/13/17 14:31 Polyethylene Glycol (Miralax) 17 gm DAILYPRN PRN ORAL Constipation 09/13/17 01:45 10/13/17 01:44 Potassium Chloride (K-Dur) 60 meq ONCE ONCE ORAL 09/13/17 15:15 09/13/17 15:16 UNV Tamsulosin HCl (Flomax) 0.4 mg BEDTIME ORAL 09/13/17 21:00 10/13/17 20:59 Vancomycin HCl (Vanco rx to dose) 1 ea DAILY PRN MISC Per rx protocol 09/13/17 02:00 10/13/17 01:59 Vancomycin HCl 1 gm/Dextrose 275 ml @ 183.708 mls/hr Q12H IVPB 09/13/17 08:00 09/18/17 07:59 09/13/17 09:09 Assessment/Plan Problem List: (1) Acute on chronic diastolic (congestive) heart failure ICD Codes: I50.33 - Acute on chronic diastolic (congestive) heart failure SNOMED: 48745863, 319898559 (2) HCAP (healthcare-associated pneumonia) ICD Codes: J18.9 - Pneumonia, unspecified organism SNOMED: 355223341 (3) UTI (urinary tract infection) ICD Codes: N39.0 - Urinary tract infection, site not specified SNOMED: 64835777 (4) Atrial fibrillation with RVR ICD Codes: I48.91 - Unspecified atrial fibrillation SNOMED: 011631370619719 (5) Left medial malleolus ulcer Assessment & Plan: likely venous stasis ulcer (6) CAD s/p CABG (7) HLD (hyperlipidemia) ICD Codes: E78.5 - Hyperlipidemia, unspecified SNOMED: 70150857 (8) HTN (hypertension) ICD Codes: I10 - Essential (primary) hypertension SNOMED: 30046786 (9) Obesity ICD Codes: E66.9 - Obesity, unspecified SNOMED: 107772759 Status: stable Assessment/Plan Admit to tele Trend trop/EKG Cardiology consult Diurese with lasix 40mg IV BID Strict I/O's, daily weights Monitor lytes and replete Cont home Eliquis for Afib ID consulted Empiric vanco and zosyn for now F/u cultures Wound care for LLE medial malleolus ulcer Check venous duplex, arterial duplex Pain control, bowel regimen Supportive care DVT Prophylaxis: Eliquis Code Status: Full Hospital Classification Declaration: Based on this initial evaluation, and depending on the patient's clinical course, I anticipate that this patient will require hospitalization for 2-3 days for CHF, Afib w/ RVR, possible PNA/UTI, and close respiratory/hemodynamic monitoring. Disposition: Once the patient is stable to leave the hospital, I anticipate the patient will likely be discharged to the following environment: home with HH vs SNF I spent 71 minutes on this patient's case, and >50% was dedicated to counseling and/or care coordination. Discussed with patient/family, nursing staff, SW/CM, cardiology, ID regarding clinical status, treatment course, and disposition planning. Time of note may not reflect time of encounter. Yovani Mcleod M.D. Sep 13, 2017 15:13
[2017-09-13] MEDS ORDERED: Tubing IV Secondary IV ONE (15:32)
--- NOTE | 2017-09-13 17:00 | Infectious Diseases Prog Note ---
Assessment/Plan Assessment/Plan HPI - patient known to me from recent admission, tx for left leg cellulitis. Now patient in for uti, possible sepsis, possible pna. Asked to evaluate patient for abx. ASSESSMENT AND PLAN: 1. uti,sob, sputum chf vs pna, ? sepsis, afib with rvr - zoysn and vancomycin - check cultures, labs and chest x-ray 2. hx of left leg cellulitis and left ankle wound - cellulitis improved, s/p abx , wound stable, previous wound culture with mri tech and x-ray without osteo - continue local wound care of left ankle wound 3. Anemia, hx elevated cr 4. Thrombocytopenia. 5. Congestive heart failure. 6. Chronic atrial fibrillation. 7. Anticoagulation. 8. Coronary artery disease. 9. Status post coronary artery bypass graft. 10. Hypertension. 11. Diabetes. 12. Hyperlipidemia. 13. History of influenza. 14. MAR was noted. 15. Case discussed with RN. 16. Social history negative. 17. Family history noncontributory. 18. No known allergies. 19. Continue treatment per primary consultants. 20. Skin care protocol. 21. Notes and records were noted. 22. Orders were entered. Subjective Constitutional: Denies: fever HEENT: Reports: congestion Respiratory: Reports: shortness of breath Cardiovascular: Reports: chest pain Gastrointestinal/Abdominal: Denies: nausea, vomiting, diarrhea Genitourinary: Reports: other - no fish Neurologic: Denies: headache Psychiatric: Denies: depression Skin: Denies: rash Hematologic: Denies: bleeding Musculoskeletal: Denies: pain Allergies: Coded Allergies: No Known Allergies (Unverified , 09/04/17) Objective Vital Signs Last 24 Hour Vital Signs Date Time Temp Pulse Resp B/P (MAP) Pulse Ox O2 Delivery O2 Flow Rate FiO2 09/13/17 14:27 68 104/71 09/13/17 12:00 104 09/13/17 12:00 96.8 68 19 104/71 97 Nasal Cannula 2.0 09/13/17 11:14 100 09/13/17 08:00 98 09/13/17 08:00 96.1 93 19 106/65 99 Nasal Cannula 2.0 09/13/17 04:00 94 09/13/17 04:00 99.1 97 20 104/55 99 Room Air 2.0 1/29/18 02:50 97.2 96 20 99/51 96 Room Air 2.0 09/13/17 02:30 97.2 96 20 99/51 96 Room Air 2.0 09/13/17 01:49 97.2 103 20 101/60 95 Room Air 3.0 09/12/17 23:11 97.2 120 20 119/71 97 Room Air 09/12/17 21:00 97.2 114 20 143/84 97 Nasal Cannula 3.0 09/12/17 19:40 113 20 Room Air 09/12/17 19:35 97.2 113 20 131/77 97 Room Air Height (Feet): 5 Height (Inches): 6.00 Weight (Pounds): 210 General Appearance: no acute distress HEENT: normocephalic, atraumatic, anicteric, mucous membranes moist, EOMI, pharynx normal, supple, no JVD Respiratory/Chest: crackles/rales, rhonchi - bilaterally Cardiovascular: normal rate, regular rhythm, no gallop/murmur, no JVD Abdomen: normal bowel sounds, soft, non tender, no organomegaly, non distended Genitourinary: other - no fish, no cva pain Extremities: no cyanosis Skin: no rash Neurologic/Psychiatric: autobody technician II-XII grossly normal, alert, responsive Lymphatic: no neck adenopathy Musculoskeletal: no effusion Objective Chest x-ray - 09/13 - Findings: There is bilateral interstitial prominence and central bronchial wall thickening. To some extent evident previously but somewhat more striking on the current exam. It is uncertain whether this is due to progression of disease or artifactual due to to technical differences. There is left suprahilar scarring again demonstrated No focal airspace consolidation. The pleural spaces are clear. The heart size is upper limits normal. Evidence of prior CABG Impression: Bilateral interstitial disease again demonstrated. Suspect chronic, but equivocally increased from prior exam so superimposed acute process also possible. Correlate with clinical findings Microbiology Date/Time Source Procedure Growth Status 09/12/17 21:40 Nasal Nares Influenza Types A,B Antigen (ROOPA) - Final Complete Laboratory Tests Test 09/12/17 20:22 09/12/17 23:30 09/13/17 00:16 09/13/17 10:15 White Blood Count 6.9 K/UL (4.8-10.8) 5.5 K/UL (4.8-10.8) Red Blood Count 4.42 M/UL (4.70-6.10) L 3.87 M/UL (4.70-6.10) L Hemoglobin 13.0 G/DL (14.2-18.0) L 11.5 G/DL (14.2-18.0) L Hematocrit 41.1 % (42.0-52.0) L 36.3 % (42.0-52.0) L Mean Corpuscular Volume 93 FL (80-99) 94 FL (80-99) Mean Corpuscular Hemoglobin 29.5 PG (27.0-31.0) 29.8 PG (27.0-31.0) Mean Corpuscular Hemoglobin Concent 31.6 G/DL (32.0-36.0) L 31.7 G/DL (32.0-36.0) L Red Cell Distribution Width 13.8 % (11.6-14.8) 13.5 % (11.6-14.8) Platelet Count 163 K/UL (150-450) 125 K/UL (150-450) L Mean Platelet Volume 5.7 FL (6.5-10.1) L 5.8 FL (6.5-10.1) L Neutrophils (%) (Auto) 76.2 % (45.0-75.0) H 67.1 % (45.0-75.0) Lymphocytes (%) (Auto) 10.4 % (20.0-45.0) L 17.1 % (20.0-45.0) L Monocytes (%) (Auto) 11.8 % (1.0-10.0) H 13.5 % (1.0-10.0) H Eosinophils (%) (Auto) 1.0 % (0.0-3.0) 1.9 % (0.0-3.0) Basophils (%) (Auto) 0.6 % (0.0-2.0) 0.5 % (0.0-2.0) Sodium Level 141 MMOL/L (136-145) 143 MMOL/L (136-145) Potassium Level 3.8 MMOL/L (3.5-5.1) 3.1 MMOL/L (3.5-5.1) L Chloride Level 99 MMOL/L (98-107) 100 MMOL/L (98-107) Carbon Dioxide Level 36 MMOL/L (21-32) H 35 MMOL/L (21-32) H Anion Gap 6 mmol/L (5-15) 8 mmol/L (5-15) Blood Urea Nitrogen 22 mg/dL (7-18) H 20 mg/dL (7-18) H Creatinine 1.2 MG/DL (0.55-1.30) 1.2 MG/DL (0.55-1.30) Estimat Glomerular Filtration Rate mL/min (>60) mL/min (>60) Glucose Level 151 MG/DL (74-106) H 189 MG/DL (74-106) H Lactic Acid Level 2.30 mmol/L (0.66-2.22) H 3.10 mmol/L (0.66-2.22) H Calcium Level 9.6 MG/DL (8.5-10.1) 8.5 MG/DL (8.5-10.1) Magnesium Level 1.9 MG/DL (1.8-2.4) 1.6 MG/DL (1.8-2.4) L Total Bilirubin 0.8 MG/DL (0.2-1.0) Aspartate Amino Transf (AST/SGOT) 22 U/L (15-37) Alanine Aminotransferase (ALT/SGPT) 34 U/L (12-78) Alkaline Phosphatase 75 U/L (46-116) Total Creatine Kinase 23 U/L (26-308) L Creatine Kinase MB 0.6 NG/ML (0.0-3.6) Creatine Kinase MB Relative Index 2.6 Troponin I 0.014 ng/mL (0.000-0.056) 0.022 ng/mL (0.000-0.056) Pro-B-Type Natriuretic Peptide 3310 pg/mL (0-125) H Total Protein 8.1 G/DL (6.4-8.2) Albumin 3.8 G/DL (3.4-5.0) Globulin 4.3 g/dL Albumin/Globulin Ratio 0.9 (1.0-2.7) L Urine Color Pale yellow Urine Appearance Clear Urine pH 5 (4.5-8.0) Urine Specific [place] 1.010 (1.005-1.035) Urine Protein Negative (NEGATIVE) Urine Glucose (UA) Negative (NEGATIVE) Urine Ketones Negative (NEGATIVE) Urine Occult Blood 1+ (NEGATIVE) H Urine Nitrite Negative (NEGATIVE) Urine Bilirubin Negative (NEGATIVE) Urine Urobilinogen Normal MG/DL (0.0-1.0) Urine Leukocyte Esterase 2+ (NEGATIVE) H Urine RBC 0-2 /HPF (0 - 0) H Urine WBC 20-30 /HPF (0 - 0) H Urine Squamous Epithelial Cells Few /LPF (NONE/OCC) Urine Bacteria Few /HPF (NONE) Phosphorus Level 5.0 MG/DL (2.5-4.9) H Test 09/13/17 12:00 09/13/17 16:00 Troponin I 0.027 ng/mL (0.000-0.056) Lactic Acid Level 1.20 mmol/L (0.66-2.22) Current Medications Medications (Trade) Dose Ordered Sig/Sara Route PRN Reason Start Time Stop Time Status Last Admin Dose Admin Acetaminophen (Tylenol) 650 mg Q4H PRN ORAL Mild Pain (Pain Scale 1-3) 09/13/17 01:45 10/13/17 01:44 Acetaminophen (Tylenol) 650 mg Q4H PRN ORAL fever 09/13/17 01:45 10/13/17 01:44 Albuterol/ Ipratropium (Albuterol/ Ipratropium) 3 ml Q4H PRN HHN Shortness of Breath 09/13/17 01:45 09/18/17 01:44 Apixaban (Eliquis) 5 mg BID ORAL 09/13/17 09:00 10/13/17 08:59 09/13/17 08:36 Bisacodyl (Dulcolax) 10 mg DAILYPRN PRN RECTAL Constipation 09/13/17 01:45 10/13/17 01:44 Dextrose (Dextrose 50%) STAT PRN IV Hypoglycemia 09/13/17 02:00 10/13/17 01:59 Digoxin (Lanoxin) 0.125 mg DAILY ORAL 09/13/17 11:00 10/13/17 10:59 09/13/17 11:14 Diltiazem HCl (Cardizem) 30 mg EVERY 8 HOURS ORAL 09/13/17 14:00 10/13/17 13:59 09/13/17 14:27 Docusate Sodium (Colace) 100 mg EVERY 12 HOURS ORAL 09/13/17 09:00 10/13/17 08:59 09/13/17 08:34 Furosemide (Lasix) 40 mg EVERY 12 HOURS IV 09/13/17 09:00 10/13/17 08:59 09/13/17 08:36 Insulin Aspart (NovoLOG) BEFORE MEALS AND HS SUBQ 09/13/17 06:30 10/13/17 06:29 09/13/17 16:36 Lansoprazole (Prevacid) 30 mg DAILY ORAL 09/13/17 09:00 10/13/17 08:59 09/13/17 08:34 Magnesium Sulfate 100 ml @ 100 mls/hr Q1H IVPB 09/13/17 15:30 09/13/17 18:29 09/13/17 15:19 Ondansetron HCl (Zofran) 4 mg Q6H PRN IVP Nausea & Vomiting 09/13/17 01:45 10/13/17 01:44 Piperacillin Sod/ Tazobactam Sod 4.5 gm/Sodium Chloride 110 ml @ 27.5 mls/hr EVERY 8 HOURS IVPB 09/13/17 06:00 09/20/17 05:59 09/13/17 14:31 Polyethylene Glycol (Miralax) 17 gm DAILYPRN PRN ORAL Constipation 09/13/17 01:45 10/13/17 01:44 Tamsulosin HCl (Flomax) 0.4 mg BEDTIME ORAL 09/13/17 21:00 10/13/17 20:59 Vancomycin HCl (Vanco rx to dose) 1 ea DAILY PRN MISC Per rx protocol 09/13/17 02:00 10/13/17 01:59 Vancomycin HCl 1 gm/Dextrose 275 ml @ 183.708 mls/hr Q24H IVPB 09/14/17 09:00 09/19/17 08:59 BRUNILDA VO Sep 13, 2017 17:00
--- NOTE | 2017-09-13 18:00 | Consultation ---
DATE OF CONSULTATION: 09/13/2017 CARDIOLOGY CONSULTATION CONSULTING PHYSICIAN: Matthew Newman M.D. REFERRING PHYSICIAN: Robert Rodriguez M.D. REASON FOR CONSULTATION: Atrial fibrillation with rapid ventricular response and congestive heart failure and history of CABG. HISTORY OF PRESENT ILLNESS: The patient is a very pleasant 82-year-old, [place]ian gentleman that I saw in the hospital just less than a week ago. The patient has history of hypertension, history of coronary artery bypass graft, and history of congestive heart failure due to diastolic dysfunction as well as atrial fibrillation with slow ventricular response. On previous admission, the patient was kept off any AV ivis jeaneth for bradycardic episodes that he had. The patient was discharged home and came back to the emergency room complaining of left-sided chest pain with radiation as well as cough with productive sputum and shortness of breath. The patient also has been on antibiotic for left foot ulcer. The patient denies any syncope, presyncope, or any new leg pain or leg swelling. The patient was again in atrial fibrillation with rapid ventricular response, heart rate of 113 beats per minute . The patient also had T-wave abnormalities with history of anterolateral ischemia. Cardiology consultation was obtained for further evaluation and management. PAST MEDICAL HISTORY: 1. Hypertension. 2. History of coronary artery bypass graft. 3. Congestive heart failure with diastolic dysfunction. 4. Paroxysmal atrial fibrillation. 5. History of recent bradycardia. FAMILY HISTORY: Noncontributory. SOCIAL HISTORY: Does not smoke or drink alcohol. Lives at home. REVIEW OF SYSTEMS: Review of systems was performed and was negative other than what was mentioned in the history of present illness. PHYSICAL EXAMINATION: VITAL SIGNS: Blood pressure is 106/65, pulse 93, respirations 19, and temperature 96.1. HEAD AND NECK: Shows mild JVD. LUNGS: Decreased breath sounds. CARDIOVASCULAR: Irregularly irregular. S1 and S2 with no gallop or murmur. ABDOMEN: Soft. EXTREMITIES: 1+ pitting edema. LABORATORY DATA: His labs show white count of 6.9, hemoglobin of 13, hematocrit of 41, and platelet count is 163,000. Sodium 141, potassium 3.8, BUN of 22, and creatinine of 1.2. Lactic acid is . BNP is 3000. ASSESSMENT AND PLAN: 1. Atrial fibrillation with rapid ventricular response. The patient is on Eliquis 5 mg b.i.d. Resume his digoxin at 0.125 mg daily. His last digoxin level was 1.9 on 09/04/2017 and his creatinine is 1.2. I will also put him on Cardizem 30 mg t.i.d. for better rate control during atrial fibrillation. 2. Congestive heart failure due to diastolic dysfunction. The patient is on Lasix 40 mg IV b.i.d. His echocardiogram on 09/04/2017 showed ejection fraction of being grossly normal. 3. History of coronary artery bypass graft and chest pain. We will completely rule out myocardial infarction protocol again. After pneumonia is cleared, the patient will be getting a nuclear stress test for further evaluation. 4. Possible pneumonia, on antibiotics per Dr. Rodriguez. Thank you very much, Dr. Chahal, for allowing me to participate in the care of this patient. Please do not hesitate to contact me for any questions regarding my evaluation. Matthew Newman M.D. DR: JASS JOB#: [id number] CC:
[2017-09-13] MEDS: Tamsulosin 0.4mg cap ORAL SCH (20:48)
[2017-09-14] VITALS: BP 102/59
[2017-09-14] MEDS ORDERED: Midodrine 10mg tab ORAL ONE (00:15)
[2017-09-14 04:00] VITALS: BP 105/63
[2017-09-14] MEDS: Piperacillin/Tazobactam 4.5 GM in NS 110 ML IVPB SCH (06:11)
[2017-09-14] MEDS: dilTIAZem HCl 30mg tab ORAL SCH ×3 (06:11→23:17)
[2017-09-14] MEDS: NovoLOG Insulin Flexpen SUBQ SCH ×4 (06:17→21:46)
[2017-09-14 08:00] VITALS: BP 115/64
[2017-09-14 08:22] LABS: BASOPHILS % (AUTO) 1.1 % (0.0-2.0); EOSINOPHILS % (AUTO) 2.2 % (0.0-3.0); HEMATOCRIT 34.1 % (42.0-52.0); LYMPHOCYTES % (AUTO) 18.3 % (20.0-45.0); MEAN CORPUSCULAR VOLUME 92 FL (80-99); MONOCYTES % (AUTO) 13.7 % (1.0-10.0); NEUTROPHILS % (AUTO) 64.6 % (45.0-75.0); PLATELET COUNT 144 K/UL (150-450); RED BLOOD COUNT 3.69 M/UL (4.70-6.10); RED CELL DISTRIBUTION WIDTH 13.6 % (11.6-14.8); WHITE BLOOD COUNT 5.5 K/UL (4.8-10.8)
[2017-09-14 08:38] LABS: ANION GAP 7 mmol/L (5-15); BLOOD UREA NITROGEN 25 mg/dL (7-18); CALCIUM 8.5 MG/DL (8.5-10.1); CARBON DIOXIDE 36 MMOL/L (21-32); CHLORIDE 99 MMOL/L (98-107); CREATININE 1.4 MG/DL (0.55-1.30); POTASSIUM 3.4 MMOL/L (3.5-5.1); SODIUM 142 MMOL/L (136-145)
[2017-09-14] MEDS: Docusate 100mg cap ORAL SCH ×2 (08:51→21:42)
[2017-09-14] MEDS: Digoxin 0.125mg tab ORAL SCH (08:51)
[2017-09-14] MEDS: Eliquis 2.5mg tablet ORAL SCH ×2 (08:53→17:53)
[2017-09-14] MEDS: Vancomycin 1gm in D5W 275ml IVPB SCH (08:57)
--- NOTE | 2017-09-14 10:02 | Diagnostic Imaging Report ---
Indication: Shortness of breath Technique: One view of the chest Comparison: ] 2017 Findings: Left suprahilar scarring, bilateral central bronchial wall thickening persists, unchanged. There is a band of atelectasis at the right lung base. Normal heart size. Tortuous calcified aorta. Prior CABG. Except for the right basilar atelectasis, findings are largely unchanged Impression: Essentially unchanged, over 2 days, findings described
[2017-09-14 12:00] VITALS: BP 103/60
[2017-09-14] MEDS: Zoysn 3.37gm in NS 100ML IVPB SCH ×2 (14:22→23:16)
--- NOTE | 2017-09-14 15:36 | Cardiac Electrophysiology PN ---
Assessment/Plan Assessment/Plan 1. Atrial fibrillation with rapid ventricular response. The patient is on Eliquis 5 mg b.i.d.Continue digoxin at 0.125 mg daily and Cardizem 30 mg t.i.d. 2. Congestive heart failure due to diastolic dysfunction. The patient is on Lasix 40 mg IV b.i.d. His echocardiogram on 09/04/2017 showed ejection fraction of being grossly normal. 3. History of coronary artery bypass graft and chest pain. Rule out myocardial infarction After pneumonia is cleared, the patient will be getting a nuclear stress test for further evaluation. 4. Pneumonia, on antibiotics per Dr. Davis RENO RN Subjective Subjective In atrial fib with controlled rate on IV Lasix. Objective Last 24 Hour Vital Signs Date Time Temp Pulse Resp B/P (MAP) Pulse Ox O2 Delivery O2 Flow Rate FiO2 09/14/17 13:58 97 103/60 09/14/17 12:00 97.2 98 20 103/60 95 Nasal Cannula 2.0 09/14/17 12:00 97 09/14/17 08:51 99 09/14/17 08:00 97.0 100 20 115/64 96 Nasal Cannula 2.0 09/14/17 08:00 99 09/14/17 07:54 52 19 Nasal Cannula 2.0 28 09/14/17 06:11 96 105/63 09/14/17 04:00 98.0 99 20 105/63 98 Nasal Cannula 2.0 09/14/17 04:00 91 09/14/17 00:00 87 09/14/17 00:00 98.0 91 20 102/59 98 Nasal Cannula 2.0 09/13/17 22:46 95 141/88 09/13/17 20:00 97.6 95 20 113/71 98 Nasal Cannula 2.0 09/13/17 20:00 92 09/13/17 16:00 96.7 96 18 131/71 98 Nasal Cannula 2.0 09/13/17 16:00 88 Intake and Output 09/13/17 09/14/17 19:00 07:00 Intake Total 1139.500 ml 236 ml Output Total 450 ml 1525 ml Balance 689.500 ml -1289 ml Intake Oral 472 ml 236 ml IV Total 667.500 ml Output Urine Total 450 ml 1525 ml # Voids 2 3 Laboratory Tests Test 09/13/17 16:00 1/30/18 06:20 Lactic Acid Level 1.20 mmol/L (0.66-2.22) White Blood Count 5.5 K/UL (4.8-10.8) Red Blood Count 3.69 M/UL (4.70-6.10) L Hemoglobin 11.0 G/DL (14.2-18.0) L Hematocrit 34.1 % (42.0-52.0) L Mean Corpuscular Volume 92 FL (80-99) Mean Corpuscular Hemoglobin 29.9 PG (27.0-31.0) Mean Corpuscular Hemoglobin Concent 32.4 G/DL (32.0-36.0) Red Cell Distribution Width 13.6 % (11.6-14.8) Platelet Count 144 K/UL (150-450) L Mean Platelet Volume 5.9 FL (6.5-10.1) L Neutrophils (%) (Auto) 64.6 % (45.0-75.0) Lymphocytes (%) (Auto) 18.3 % (20.0-45.0) L Monocytes (%) (Auto) 13.7 % (1.0-10.0) H Eosinophils (%) (Auto) 2.2 % (0.0-3.0) Basophils (%) (Auto) 1.1 % (0.0-2.0) Sodium Level 142 MMOL/L (136-145) Potassium Level 3.4 MMOL/L (3.5-5.1) L Chloride Level 99 MMOL/L (98-107) Carbon Dioxide Level 36 MMOL/L (21-32) H Anion Gap 7 mmol/L (5-15) Blood Urea Nitrogen 25 mg/dL (7-18) H Creatinine 1.4 MG/DL (0.55-1.30) H Estimat Glomerular Filtration Rate mL/min (>60) Glucose Level 123 MG/DL (74-106) H Calcium Level 8.5 MG/DL (8.5-10.1) Magnesium Level 1.9 MG/DL (1.8-2.4) Troponin I 0.020 ng/mL (0.000-0.056) Pro-B-Type Natriuretic Peptide 3303 pg/mL (0-125) H Digoxin Level < 0.3 NG/ML (0.5-2.0) L Microbiology Date/Time Source Procedure Growth Status 09/12/17 20:20 Blood Blood Culture - Preliminary NO GROWTH AFTER 24 HOURS Resulted 09/12/17 20:05 Blood Blood Culture - Preliminary NO GROWTH AFTER 24 HOURS Resulted 09/12/17 21:40 Nasal Nares Influenza Types A,B Antigen (ROOPA) - Final Complete 09/12/17 23:30 Urine,Clean Catch Urine Culture - Preliminary NO GROWTH Resulted Objective HEAD AND NECK: Shows mild JVD. LUNGS: Decreased breath sounds. CARDIOVASCULAR: Irregularly irregular. S1 and S2 with no gallop or murmur. ABDOMEN: Soft. EXTREMITIES: 1+ pitting edema. LUIS MANUEL PATHAK Sep 14, 2017 15:36
[2017-09-14 15:39] VITALS: BP 105/57
[2017-09-14 20:00] VITALS: BP 112/67
[2017-09-14] MEDS: Tamsulosin 0.4mg cap ORAL SCH (21:42)
[2017-09-15] VITALS: BP 120/71
--- NOTE | 2017-09-15 00:19 | General Progress Note ---
Assessment/Plan Problem List: (1) Acute on chronic diastolic (congestive) heart failure ICD Codes: I50.33 - Acute on chronic diastolic (congestive) heart failure SNOMED: 60952772, 355199360 (2) HCAP (healthcare-associated pneumonia) ICD Codes: J18.9 - Pneumonia, unspecified organism SNOMED: 424565863 (3) UTI (urinary tract infection) ICD Codes: N39.0 - Urinary tract infection, site not specified SNOMED: 28438974 (4) Atrial fibrillation with RVR ICD Codes: I48.91 - Unspecified atrial fibrillation SNOMED: 244697221843601 (5) Left medial malleolus ulcer Assessment & Plan: likely venous stasis ulcer (6) CAD s/p CABG (7) HLD (hyperlipidemia) ICD Codes: E78.5 - Hyperlipidemia, unspecified SNOMED: 08745795 (8) HTN (hypertension) ICD Codes: I10 - Essential (primary) hypertension SNOMED: 41559620 (9) Obesity ICD Codes: E66.9 - Obesity, unspecified SNOMED: 690390343 (10) Hypokalemia ICD Codes: E87.6 - Hypokalemia SNOMED: 66878940 Status: stable Assessment/Plan Cardiology consulted Trop neg x3 Cont to diurese with lasix 40mg IV BID Strict I/O's, daily weights Monitor lytes and replete Cont home Eliquis for Afib ID consulted Empiric vanco and zosyn for now F/u cultures Wound care for LLE medial malleolus ulcer Check venous duplex, arterial duplex Pain control, bowel regimen Supportive care PT eval DVT Prophylaxis: Eliquis Code Status: Full Hospital Classification Declaration: Based on this initial evaluation, and depending on the patient's clinical course, I anticipate that this patient will require hospitalization for 2-3 days for CHF, Afib w/ RVR, possible PNA/UTI, and close respiratory/hemodynamic monitoring. Disposition: Once the patient is stable to leave the hospital, I anticipate the patient will likely be discharged to the following environment: home with HH vs SNF Discussed with patient/family, nursing staff, SW/CM, cardiology, ID regarding clinical status, treatment course, and disposition planning. D/w cardiology re diuresis. D/w ID re abx Time of note may not reflect time of encounter. Subjective Date patient seen: Sep 14, 2017 Time patient seen: 15:00 ROS Limited/Unobtainable: No Constitutional: Reports: weakness HEENT: Reports: no symptoms Cardiovascular: Reports: chest pain Respiratory: Reports: cough, shortness of breath Gastrointestinal/Abdominal: Reports: no symptoms Genitourinary: Reports: no symptoms Neurologic/Psychiatric: Reports: no symptoms Endocrine: Reports: no symptoms Hematologic/Lymphatic: Reports: no symptoms Allergies: Coded Allergies: No Known Allergies (Unverified , 09/04/17) All Systems: reviewed and negative except above Subjective No acute o/n events Pt feeling better. SOB, cough, chest pain, improved. Denies f/c, n/v, d/c, abd pain Objective Last 24 Hour Vital Signs Date Time Temp Pulse Resp B/P (MAP) Pulse Ox O2 Delivery O2 Flow Rate FiO2 09/14/17 23:17 84 112/67 09/14/17 20:28 54 20 Nasal Cannula 2.0 28 09/14/17 16:00 94 09/14/17 15:39 97.0 72 20 105/57 98 Nasal Cannula 2.0 09/14/17 13:58 97 103/60 09/14/17 12:00 97.2 98 20 103/60 95 Nasal Cannula 2.0 09/14/17 12:00 97 09/14/17 08:51 99 09/14/17 08:00 97.0 100 20 115/64 96 Nasal Cannula 2.0 09/14/17 08:00 99 09/14/17 07:54 52 19 Nasal Cannula 2.0 28 09/14/17 06:11 96 105/63 09/14/17 04:00 98.0 99 20 105/63 98 Nasal Cannula 2.0 09/14/17 04:00 91 Intake and Output 09/14/17 09/15/17 19:00 07:00 Intake Total 855.000 ml Output Total 700 ml Balance 155.000 ml Intake Oral 360 ml IV Total 495.000 ml Output Urine Total 700 ml Laboratory Tests 09/14/17 06:20: White Blood Count 5.5, Red Blood Count 3.69L, Hemoglobin 11.0L, Hematocrit 34.1L , Mean Corpuscular Volume 92, Mean Corpuscular Hemoglobin 29.9, Mean Corpuscular Hemoglobin Concent 32.4, Red Cell Distribution Width 13.6, Platelet Count 144L, Mean Platelet Volume 5.9L, Neutrophils (%) (Auto) 64.6, Lymphocytes (%) (Auto) 18.3L, Monocytes (%) (Auto) 13.7H, Eosinophils (%) (Auto) 2.2, Basophils (%) (Auto) 1.1, Sodium Level 142, Potassium Level 3.4L, Chloride Level 99, Carbon Dioxide Level 36H, Anion Gap 7, Blood Urea Nitrogen 25H, Creatinine 1.4H, Estimat Glomerular Filtration Rate , Glucose Level 123H, Calcium Level 8.5, Magnesium Level 1.9, Troponin I 0.020, Pro-B-Type Natriuretic Peptide 3303H, Digoxin Level < 0.3L Height (Feet): 5 Height (Inches): 6.00 Weight (Pounds): 210 Objective General: alert, cooperative, no distress, appears stated age Head: normocephalic, without obvious abnormality, atraumatic Eyes: conjunctivae/corneas clear. PERRL, EOM's intact Throat: lips, mucosa, and tongue normal. MMM Neck: supple, symmetrical, trachea midline, and +JVD Lungs: +crackles b/l Heart: regular rate and rhythm, S1, S2 normal, no murmur, click, rub or gallop Abdomen: soft, non-tender, non-distended, bowel sounds normal Extremities: extremities normal, atraumatic, no cyanosis. 1+ bilateral lower extremity edema, left foot wound c/d/i Pulses: 2+ and symmetric Skin: skin color, texture, turgor normal; no rashes or lesions Neurologic: grossly normal, no focal deficits Yovani Mcleod M.D. Sep 15, 2017 00:19
[2017-09-15 04:00] VITALS: BP 104/58
[2017-09-15] MEDS: Zoysn 3.37gm in NS 100ML IVPB SCH (06:31)
[2017-09-15] MEDS: dilTIAZem HCl 30mg tab ORAL SCH ×3 (06:31→22:26)
[2017-09-15] MEDS: NovoLOG Insulin Flexpen SUBQ SCH ×4 (06:36→20:48)
[2017-09-15 08:00] VITALS: BP 113/67
[2017-09-15 09:14] LABS: ANION GAP 5 mmol/L (5-15); BLOOD UREA NITROGEN 25 mg/dL (7-18); CALCIUM 7.9 MG/DL (8.5-10.1); CARBON DIOXIDE 38 MMOL/L (21-32); CHLORIDE 100 MMOL/L (98-107); CREATININE 1.2 MG/DL (0.55-1.30); POTASSIUM 3.3 MMOL/L (3.5-5.1); SODIUM 143 MMOL/L (136-145)
[2017-09-15] MEDS: Docusate 100mg cap ORAL SCH ×2 (10:34→20:45)
[2017-09-15] MEDS: Eliquis 2.5mg tablet ORAL SCH ×2 (10:35→17:55)
[2017-09-15] MEDS: Digoxin 0.125mg tab ORAL SCH (10:35)
[2017-09-15] MEDS: Vancomycin 1gm in D5W 275ml IVPB SCH (10:36)
[2017-09-15 12:00] VITALS: BP 123/63
--- NOTE | 2017-09-15 13:14 | Infectious Diseases Prog Note ---
Assessment/Plan Assessment/Plan ASSESSMENT AND PLAN: 1. uti, sob, sputum, chf vs pna, chest x-ray with bronchial thickening but no obvious consolidation, ? uri/bronchitis - change abx to recephin x 5 days - check cultures, labs and chest x-ray - can change rocphin to augmentin if needed - d/w Dr. Pina - see orders 2. 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 Anemia, hx elevated cr 4. Thrombocytopenia. 5. Congestive heart failure. 6. Chronic atrial fibrillation. 7. Anticoagulation. 8. Coronary artery disease. 9. Status post coronary artery bypass graft. 10. Hypertension. 11. Diabetes. 12. Hyperlipidemia. 13. History of influenza. 14. MAR was noted. 15. Case discussed with RN. 16. Social history negative. 17. Family history noncontributory. 18. No known allergies. 19. Continue treatment per primary consultants. 20. Skin care protocol. 21. Notes and records were noted. 22. Orders were entered. Subjective Constitutional: Denies: fever Respiratory: Denies: shortness of breath Cardiovascular: Denies: chest pain Gastrointestinal/Abdominal: Denies: nausea, vomiting, diarrhea Genitourinary: Denies: dysuria Neurologic: Denies: headache Skin: Denies: rash Hematologic: Denies: bleeding Musculoskeletal: Denies: pain Allergies: Coded Allergies: No Known Allergies (Unverified , 09/04/17) Objective Vital Signs Last 24 Hour Vital Signs Date Time Temp Pulse Resp B/P (MAP) Pulse Ox O2 Delivery O2 Flow Rate FiO2 09/15/17 12:00 93 09/15/17 11:19 94 22 96 Nasal Cannula 2.0 28 09/15/17 11:10 93 20 94 Nasal Cannula 2.0 28 09/15/17 10:35 92 09/15/17 08:00 93 09/15/17 08:00 97.9 100 20 113/67 96 Nasal Cannula 2.0 09/15/17 07:54 Nasal Cannula 2.0 28 09/15/17 07:54 98 Nasal Cannula 2.0 28 09/15/17 07:53 58 20 Nasal Cannula 2.0 28 09/15/17 06:31 99 122/66 09/15/17 04:06 Nasal Cannula 2.0 28 09/15/17 04:06 98 Nasal Cannula 2.0 28 09/15/17 04:00 97.9 93 24 104/58 96 Nasal Cannula 2.0 09/15/17 04:00 94 09/15/17 00:00 94 09/15/17 00:00 97.5 88 25 120/71 96 Nasal Cannula 2.0 09/14/17 23:17 84 112/67 09/14/17 20:28 54 20 Nasal Cannula 2.0 28 09/14/17 20:00 98.4 84 20 112/67 99 Nasal Cannula 2.0 09/14/17 20:00 87 09/14/17 16:00 94 09/14/17 15:39 97.0 72 20 105/57 98 Nasal Cannula 2.0 09/14/17 13:58 97 103/60 Height (Feet): 5 Height (Inches): 6.00 Weight (Pounds): 199 General Appearance: no acute distress HEENT: normocephalic, atraumatic, anicteric, mucous membranes moist Respiratory/Chest: lungs clear, normal breath sounds, no respiratory distress, no accessory muscle use, crackles/rales - less, rhonchi - bilaterally - less Cardiovascular: normal rate, regular rhythm, no gallop/murmur, no JVD Abdomen: normal bowel sounds, soft, non tender, no organomegaly, non distended Genitourinary: other - no fish, no cva pain Extremities: no cyanosis, other - left leg - no cellulitis Skin: no rash 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 To some extent evident previously but somewhat more striking on the current exam. It is uncertain whether this is due to progression of disease or artifactual due to to technical differences. There is left suprahilar scarring again demonstrated No focal airspace consolidation. The pleural spaces are clear. The heart size is upper limits normal. Evidence of prior CABG Impression: Bilateral interstitial disease again demonstrated. Suspect chronic, but equivocally increased from prior exam so superimposed acute process also possible. Correlate with clinical findings 09/14 - chest x-ray - Findings: Left suprahilar scarring, bilateral central bronchial wall thickening persists, unchanged. There is a band of atelectasis at the right lung base. Normal heart size. Tortuous calcified aorta. Prior CABG. Except for the right basilar atelectasis, findings are largely unchanged Impression: Essentially unchanged, over 2 days, findings described Microbiology Date/Time Source Procedure Growth Status 09/12/17 20:20 Blood Blood Culture - Preliminary NO GROWTH AFTER 48 HOURS Resulted 09/12/17 21:40 Nasal Nares Influenza Types A,B Antigen (ROOPA) - Final Complete 09/12/17 23:30 Urine,Clean Catch Urine Culture - Preliminary Mixed Gram Positive Organism Resulted Microbiology Date/Time Source Procedure Growth Status 09/12/17 20:20 Blood Blood Culture - Preliminary NO GROWTH AFTER 48 HOURS Resulted 09/12/17 20:05 Blood Blood Culture - Preliminary NO GROWTH AFTER 48 HOURS Resulted 09/12/17 21:40 Nasal Nares Influenza Types A,B Antigen (ROOPA) - Final Complete 09/12/17 23:30 Urine,Clean Catch Urine Culture - Preliminary Mixed Gram Positive Organism Resulted Laboratory Tests Test 09/15/17 08:05 Sodium Level 143 MMOL/L (136-145) Potassium Level 3.3 MMOL/L (3.5-5.1) L Chloride Level 100 MMOL/L (98-107) Carbon Dioxide Level 38 MMOL/L (21-32) H Anion Gap 5 mmol/L (5-15) Blood Urea Nitrogen 25 mg/dL (7-18) H Creatinine 1.2 MG/DL (0.55-1.30) Estimat Glomerular Filtration Rate mL/min (>60) Glucose Level 138 MG/DL (74-106) H Calcium Level 7.9 MG/DL (8.5-10.1) L Magnesium Level 2.0 MG/DL (1.8-2.4) Vancomycin Level Trough 8.5 ug/mL (5.0-12.0) Current Medications Medications (Trade) Dose Ordered Sig/Sara Route PRN Reason Start Time Stop Time Status Last Admin Dose Admin Acetaminophen (Tylenol) 650 mg Q4H PRN ORAL Mild Pain (Pain Scale 1-3) 09/13/17 01:45 10/13/17 01:44 09/14/17 23:15 Acetaminophen (Tylenol) 650 mg Q4H PRN ORAL fever 09/13/17 01:45 10/13/17 01:44 Albuterol/ Ipratropium (Albuterol/ Ipratropium) 3 ml Q4H PRN HHN Shortness of Breath 09/13/17 01:45 09/18/17 01:44 09/15/17 11:10 Apixaban (Eliquis) 5 mg BID ORAL 09/13/17 09:00 10/13/17 08:59 09/15/17 10:35 Bisacodyl (Dulcolax) 10 mg DAILYPRN PRN RECTAL Constipation 09/13/17 01:45 10/13/17 01:44 Dextrose (Dextrose 50%) STAT PRN IV Hypoglycemia 09/13/17 02:00 10/13/17 01:59 Digoxin (Lanoxin) 0.125 mg DAILY ORAL 09/13/17 11:00 10/13/17 10:59 09/15/17 10:35 Diltiazem HCl (Cardizem) 30 mg EVERY 8 HOURS ORAL 09/13/17 14:00 10/13/17 13:59 09/15/17 06:31 Docusate Sodium (Colace) 100 mg EVERY 12 HOURS ORAL 09/13/17 09:00 10/13/17 08:59 09/15/17 10:34 Furosemide (Lasix) 40 mg EVERY 12 HOURS IV 09/13/17 09:00 10/13/17 08:59 09/15/17 10:35 Insulin Aspart (NovoLOG) BEFORE MEALS AND HS SUBQ 09/13/17 06:30 10/13/17 06:29 09/15/17 12:10 Lansoprazole (Prevacid) 30 mg DAILY ORAL 09/13/17 09:00 10/13/17 08:59 09/15/17 10:35 Multivitamins (Multivitamins) 1 tab DAILY ORAL 09/14/17 18:00 10/14/17 17:59 09/15/17 10:35 Ondansetron HCl (Zofran) 4 mg Q6H PRN IVP Nausea & Vomiting 09/13/17 01:45 10/13/17 01:44 Piperacillin Sod/ Tazobactam Sod 3.375 gm/Sodium Chloride 110 ml @ 27.5 mls/hr EVERY 8 HOURS IVPB 09/14/17 15:00 09/19/17 14:59 09/15/17 06:31 Polyethylene Glycol (Miralax) 17 gm DAILYPRN PRN ORAL Constipation 09/13/17 01:45 10/13/17 01:44 Potassium Chloride (K-Dur) 40 meq DAILY ORAL 09/15/17 11:00 10/15/17 10:59 09/15/17 12:11 Tamsulosin HCl (Flomax) 0.4 mg BEDTIME ORAL 09/13/17 21:00 10/13/17 20:59 09/14/17 21:42 Vancomycin HCl (Vanco rx to dose) 1 ea DAILY PRN MISC Per rx protocol 09/13/17 02:00 10/13/17 01:59 Vancomycin/Sodium Chloride 250 ml @ 166.667 mls/hr Q12HR@1000,2200 IVPB 09/15/17 22:00 09/20/17 21:59 BRUNILDA VO Sep 15, 2017 13:14
--- NOTE | 2017-09-15 13:55 | Cardiac Electrophysiology PN ---
Assessment/Plan Assessment/Plan 1. Atrial fibrillation with rapid ventricular response.Continue digoxin 0.125 mg daily and Cardizem 30 mg t.i.d. On Eliquis 5 mg b.i.d 2. Congestive heart failure due to diastolic dysfunction. Continue Lasix 40 mg IV b.i.d. Echo 09/04/2017 Nl EF 3. History of coronary artery bypass graft and chest pain. Rule out myocardial infarction After pneumonia is cleared, the patient will be getting a nuclear stress test for further evaluation. 4. Pneumonia, on antibiotics per Dr. Davis RENO RN Subjective Subjective In atrial fib with controlled rate. Antibiotic changed. Objective Last 24 Hour Vital Signs Date Time Temp Pulse Resp B/P (MAP) Pulse Ox O2 Delivery O2 Flow Rate FiO2 09/15/17 13:34 93 Room Air 09/15/17 13:22 95 Room Air 09/15/17 13:21 89 113/67 09/15/17 12:00 93 09/15/17 11:19 94 22 96 Nasal Cannula 2.0 28 09/15/17 11:10 93 20 94 Nasal Cannula 2.0 28 09/15/17 10:35 92 09/15/17 08:00 93 09/15/17 08:00 97.9 100 20 113/67 96 Nasal Cannula 2.0 09/15/17 07:54 Nasal Cannula 2.0 28 09/15/17 07:54 98 Nasal Cannula 2.0 28 09/15/17 07:53 58 20 Nasal Cannula 2.0 28 09/15/17 06:31 99 122/66 09/15/17 04:06 Nasal Cannula 2.0 28 09/15/17 04:06 98 Nasal Cannula 2.0 28 09/15/17 04:00 97.9 93 24 104/58 96 Nasal Cannula 2.0 09/15/17 04:00 94 09/15/17 00:00 94 09/15/17 00:00 97.5 88 25 120/71 96 Nasal Cannula 2.0 09/14/17 23:17 84 112/67 09/14/17 20:28 54 20 Nasal Cannula 2.0 28 09/14/17 20:00 98.4 84 20 112/67 99 Nasal Cannula 2.0 09/14/17 20:00 87 09/14/17 16:00 94 09/14/17 15:39 97.0 72 20 105/57 98 Nasal Cannula 2.0 09/14/17 13:58 97 103/60 Intake and Output 09/14/17 09/15/17 19:00 07:00 Intake Total 855.000 ml 100 ml Output Total 700 ml Balance 155.000 ml 100 ml Intake Oral 360 ml 100 ml IV Total 495.000 ml Output Urine Total 700 ml Laboratory Tests Test 09/15/17 08:05 Sodium Level 143 MMOL/L (136-145) Potassium Level 3.3 MMOL/L (3.5-5.1) L Chloride Level 100 MMOL/L (98-107) Carbon Dioxide Level 38 MMOL/L (21-32) H Anion Gap 5 mmol/L (5-15) Blood Urea Nitrogen 25 mg/dL (7-18) H Creatinine 1.2 MG/DL (0.55-1.30) Estimat Glomerular Filtration Rate mL/min (>60) Glucose Level 138 MG/DL (74-106) H Calcium Level 7.9 MG/DL (8.5-10.1) L Magnesium Level 2.0 MG/DL (1.8-2.4) Vancomycin Level Trough 8.5 ug/mL (5.0-12.0) Microbiology Date/Time Source Procedure Growth Status 09/12/17 20:20 Blood Blood Culture - Preliminary NO GROWTH AFTER 48 HOURS Resulted 09/12/17 20:05 Blood Blood Culture - Preliminary NO GROWTH AFTER 48 HOURS Resulted 09/13/17 18:55 Sputum Induced Gram Stain - Final Resulted 09/13/17 18:55 Sputum Induced Sputum Culture Pending Resulted 09/12/17 21:40 Nasal Nares Influenza Types A,B Antigen (ROOPA) - Final Complete 09/12/17 23:30 Urine,Clean Catch Urine Culture - Preliminary Mixed Gram Positive Organism Resulted Objective HEAD AND NECK: Shows mild JVD. LUNGS: Decreased breath sounds. CARDIOVASCULAR: Irregularly irregular. S1 and S2 with no gallop or murmur. ABDOMEN: Soft. EXTREMITIES: 1+ pitting edema. LUIS MANUEL PATHAK Sep 15, 2017 13:55
--- NOTE | 2017-09-15 14:46 | Consultation ---
History of Present Illness General Date patient seen: Sep 15, 2017 Chief Complaint: Chest Pain Reason for Consultation: dyspnea Present Illness HPI 82-year-old male with a history of CHF, presented to ER with CC of midsternal and left sternal constant nonradiating chest tightness as well as cough with whitish sputum production and shortness of breath. Symptoms just started 2 hours prior to arrival He is visibly uncomfortable and huffing and puffing for air. He was diagnosed with CHF and bronchitis and admitted to telemetry for management. He continues to be SOB and hypoxemic. I was asked by patient to evaluate him. Allergies: Coded Allergies: No Known Allergies (Unverified , 09/04/17) Medication History Scheduled Apixaban (Eliquis), 5 MG PO BID Cephalexin* (Keflex*), 500 MG ORAL EVERY 6 HOURS Doxycycline Monohydrate (Doxycycline Monohydrate), 100 MG PO BID Furosemide* (Lasix*), 40 MG ORAL EVERY 12 HOURS Furosemide* (Lasix*), 40 MG ORAL EVERY 12 HOURS, (Reported) Lansoprazole* (Lansoprazole*), 30 MG ORAL DAILY Lubiprostone (Amitiza*), 24 MCG ORAL EVERY 12 HOURS, (Reported) Metformin Hcl* (Metformin Hcl*), 500 MG ORAL TWICE A DAY, (Reported) Tamsulosin Hcl (Tamsulosin Hcl*), 0.4 MG ORAL BEDTIME, (Reported) Scheduled PRN Lubiprostone (Amitiza*), 24 MCG ORAL DAILY PRN for Constipation, (Reported) Patient History Healthcare decision maker [place] - Son Resuscitation status Advanced Directive on File Past Medical/Surgical History Past Medical/Surgical History: (1) CAD s/p CABG (2) Atrial fibrillation with slow ventricular response (3) HTN (hypertension) Review of Systems Respiratory: Reports: shortness of breath Cardiovascular: Reports: chest pain Physical Exam General Appearance: WD/WN Lines, tubes and drains: peripheral HEENT: normocephalic Neck: non-tender, normal alignment Respiratory/Chest: rhonchi - left, rhonchi - right Cardiovascular/Chest: normal peripheral pulses, normal rate Abdomen: normal bowel sounds, non tender Genitourinary/Rectal: normal genital exam, normal prostate exam Last 24 Hour Vital Signs Date Time Temp Pulse Resp B/P (MAP) Pulse Ox O2 Delivery O2 Flow Rate FiO2 09/15/17 13:34 93 Room Air 09/15/17 13:22 95 Room Air 09/15/17 13:21 89 113/67 09/15/17 12:00 93 09/15/17 11:19 94 22 96 Nasal Cannula 2.0 28 09/15/17 11:10 93 20 94 Nasal Cannula 2.0 28 09/15/17 10:35 92 09/15/17 08:00 93 09/15/17 08:00 97.9 100 20 113/67 96 Nasal Cannula 2.0 09/15/17 07:54 Nasal Cannula 2.0 28 09/15/17 07:54 98 Nasal Cannula 2.0 28 09/15/17 07:53 58 20 Nasal Cannula 2.0 28 09/15/17 06:31 99 122/66 09/15/17 04:06 Nasal Cannula 2.0 28 09/15/17 04:06 98 Nasal Cannula 2.0 28 09/15/17 04:00 97.9 93 24 104/58 96 Nasal Cannula 2.0 09/15/17 04:00 94 09/15/17 00:00 94 09/15/17 00:00 97.5 88 25 120/71 96 Nasal Cannula 2.0 09/14/17 23:17 84 112/67 09/14/17 20:28 54 20 Nasal Cannula 2.0 28 09/14/17 20:00 98.4 84 20 112/67 99 Nasal Cannula 2.0 09/14/17 20:00 87 09/14/17 16:00 94 09/14/17 15:39 97.0 72 20 105/57 98 Nasal Cannula 2.0 Intake and Output 09/14/17 09/15/17 19:00 07:00 Intake Total 855.000 ml 100 ml Output Total 700 ml Balance 155.000 ml 100 ml Intake Oral 360 ml 100 ml IV Total 495.000 ml Output Urine Total 700 ml Laboratory Tests Test 09/15/17 08:05 Sodium Level 143 MMOL/L (136-145) Potassium Level 3.3 MMOL/L (3.5-5.1) L Chloride Level 100 MMOL/L (98-107) Carbon Dioxide Level 38 MMOL/L (21-32) H Anion Gap 5 mmol/L (5-15) Blood Urea Nitrogen 25 mg/dL (7-18) H Creatinine 1.2 MG/DL (0.55-1.30) Estimat Glomerular Filtration Rate mL/min (>60) Glucose Level 138 MG/DL (74-106) H Calcium Level 7.9 MG/DL (8.5-10.1) L Magnesium Level 2.0 MG/DL (1.8-2.4) Vancomycin Level Trough 8.5 ug/mL (5.0-12.0) Height (Feet): 5 Height (Inches): 6.00 Weight (Pounds): 199 Medications Current Medications Medications (Trade) Dose Ordered Sig/Sara Route PRN Reason Start Time Stop Time Status Last Admin Dose Admin Acetaminophen (Tylenol) 650 mg Q4H PRN ORAL Mild Pain (Pain Scale 1-3) 09/13/17 01:45 10/13/17 01:44 09/15/17 13:27 Acetaminophen (Tylenol) 650 mg Q4H PRN ORAL fever 09/13/17 01:45 10/13/17 01:44 Albuterol/ Ipratropium (Albuterol/ Ipratropium) 3 ml Q4H PRN HHN Shortness of Breath 09/13/17 01:45 09/18/17 01:44 09/15/17 11:10 Apixaban (Eliquis) 5 mg BID ORAL 09/13/17 09:00 10/13/17 08:59 09/15/17 10:35 Bisacodyl (Dulcolax) 10 mg DAILYPRN PRN RECTAL Constipation 09/13/17 01:45 10/13/17 01:44 Ceftriaxone Sodium 1 gm/ Sodium Chloride 55 ml @ 110 mls/hr Q24H IVPB 09/15/17 14:30 09/22/17 14:29 Dextrose (Dextrose 50%) STAT PRN IV Hypoglycemia 09/13/17 02:00 10/13/17 01:59 Digoxin (Lanoxin) 0.125 mg DAILY ORAL 09/13/17 11:00 10/13/17 10:59 09/15/17 10:35 Diltiazem HCl (Cardizem) 30 mg EVERY 8 HOURS ORAL 09/13/17 14:00 10/13/17 13:59 09/15/17 13:21 Docusate Sodium (Colace) 100 mg EVERY 12 HOURS ORAL 09/13/17 09:00 10/13/17 08:59 09/15/17 10:34 Furosemide (Lasix) 40 mg EVERY 12 HOURS IV 09/13/17 09:00 10/13/17 08:59 09/15/17 10:35 Insulin Aspart (NovoLOG) BEFORE MEALS AND HS SUBQ 09/13/17 06:30 10/13/17 06:29 09/15/17 12:10 Lansoprazole (Prevacid) 30 mg DAILY ORAL 09/13/17 09:00 10/13/17 08:59 09/15/17 10:35 Multivitamins (Multivitamins) 1 tab DAILY ORAL 09/14/17 18:00 10/14/17 17:59 09/15/17 10:35 Ondansetron HCl (Zofran) 4 mg Q6H PRN IVP Nausea & Vomiting 09/13/17 01:45 10/13/17 01:44 Polyethylene Glycol (Miralax) 17 gm DAILYPRN PRN ORAL Constipation 09/13/17 01:45 10/13/17 01:44 Potassium Chloride (K-Dur) 40 meq DAILY ORAL 09/15/17 11:00 10/15/17 10:59 09/15/17 12:11 Tamsulosin HCl (Flomax) 0.4 mg BEDTIME ORAL 09/13/17 21:00 10/13/17 20:59 09/14/17 21:42 Assessment/Plan Problem List: (1) HCAP (healthcare-associated pneumonia) ICD Codes: J18.9 - Pneumonia, unspecified organism SNOMED: 170056736 (2) Acute on chronic diastolic (congestive) heart failure ICD Codes: I50.33 - Acute on chronic diastolic (congestive) heart failure SNOMED: 80808647, 639461705 (3) CAD s/p CABG (4) HTN (hypertension) ICD Codes: I10 - Essential (primary) hypertension SNOMED: 71518060 Assessment/Plan sputum pending both cxr reviewed echo pending heart rate controlled continue with ceftriaxone for now TYRA CHRISTOPHER Sep 15, 2017 14:46
[2017-09-15] MEDS: cefTRIAXone 1 GM in NS 55 ML IVPB SCH (15:09)
[2017-09-15] MEDS ORDERED: LANOXIN125 MCG ORAL (15:25)
[2017-09-15] MEDS ORDERED: CARDIZEM30 MG ORAL (15:25)
[2017-09-15] MEDS ORDERED: AUGMENTIN 875-1 EAC1 ORAL (15:25)
[2017-09-15 16:00] VITALS: BP 110/65
[2017-09-15 20:00] VITALS: BP 125/68
[2017-09-15] MEDS: Tamsulosin 0.4mg cap ORAL SCH (20:45)
[2017-09-15] MEDS ORDERED: Vancomycin 750mg/NS 250ml IVPB SCH (22:00)
[2017-09-16] VITALS: BP 122/64
[2017-09-16 04:00] VITALS: BP 112/62
[2017-09-16] MEDS: dilTIAZem HCl 30mg tab ORAL SCH ×2 (06:15→14:00)
[2017-09-16] MEDS: NovoLOG Insulin Flexpen SUBQ SCH ×2 (06:16→12:20)
--- NOTE | 2017-09-16 07:01 | Wound Care Consultation ---
Wound Assessment Wound Assessment : Wound Number: 1 Wound Present on Admission: Yes New Wound: No Status Change of Wound: No Wound Location Body Site Modif: right, medial Wound Location Body Site: malleolus/ankle Wound Type: blister - open Christopher Test: Does not Christopher Wound Length: 3.5 Wound Width: 3.5 Wound Depth: less than 0.1 Percent of Wound [place]/Red: 100 Wound Drainage Amount: None Wound Drainage Odor: None/Absent Tissue Surrounding Wound: Erythemic Wound General Appearance: Reddened Wound Comment #1 Left medial malleolus open blister. Cellulitis on the surrounding skin and on the dorsal foot Recommendation -Cleanse with saline, pat dry, apply Xeroform drg, cover with Bordered gauze daily and PRN soiled/dislodged -Optimize nutrition -Offload both heels -Heel protector on both heels -Assess and f/u accordingly for any changes KORI PARK RN Sep 16, 2017 07:01
--- NOTE | 2017-09-16 07:27 | General Progress Note ---
Assessment/Plan Problem List: (1) Acute on chronic diastolic (congestive) heart failure ICD Codes: I50.33 - Acute on chronic diastolic (congestive) heart failure SNOMED: 69495540, 689553231 (2) HCAP (healthcare-associated pneumonia) ICD Codes: J18.9 - Pneumonia, unspecified organism SNOMED: 228789472 (3) UTI (urinary tract infection) ICD Codes: N39.0 - Urinary tract infection, site not specified SNOMED: 36661891 (4) Atrial fibrillation with RVR ICD Codes: I48.91 - Unspecified atrial fibrillation SNOMED: 171309960362426 (5) Left medial malleolus ulcer Assessment & Plan: likely venous stasis ulcer (6) CAD s/p CABG (7) HLD (hyperlipidemia) ICD Codes: E78.5 - Hyperlipidemia, unspecified SNOMED: 37838874 (8) HTN (hypertension) ICD Codes: I10 - Essential (primary) hypertension SNOMED: 82395859 (9) Obesity ICD Codes: E66.9 - Obesity, unspecified SNOMED: 605770709 (10) Hypokalemia ICD Codes: E87.6 - Hypokalemia SNOMED: 25281819 Status: stable Assessment/Plan Cardiology consulted Trop neg x3 Cont to diurese with lasix 40mg IV BID Strict I/O's, daily weights Monitor lytes and replete Cont home Eliquis for Afib ID consulted Empiric vanco and zosyn for now F/u cultures Wound care for LLE medial malleolus ulcer Check venous duplex, arterial duplex Pain control, bowel regimen Supportive care PT eval SW/CM consulted for referral to [facility] per pt request Home health ordered as back plan Home O2 eval Possible d/c tomorrow DVT Prophylaxis: Eliquis Code Status: Full Hospital Classification Declaration: Based on this initial evaluation, and depending on the patient's clinical course, I anticipate that this patient will require hospitalization for 1-2 days for CHF, Afib w/ RVR, possible PNA/UTI, and close respiratory/hemodynamic monitoring. Disposition: Once the patient is stable to leave the hospital, I anticipate the patient will likely be discharged to the following environment: home with HH vs SNF Discussed with patient/family, nursing staff, SW/CM, cardiology, ID regarding clinical status, treatment course, and disposition planning. D/w cardiology re diuresis. D/w ID re abx Time of note may not reflect time of encounter. Subjective Date patient seen: Sep 15, 2017 Time patient seen: 12:00 ROS Limited/Unobtainable: No Constitutional: Reports: weakness HEENT: Reports: no symptoms Cardiovascular: Reports: no symptoms Respiratory: Reports: cough, shortness of breath Gastrointestinal/Abdominal: Reports: no symptoms Genitourinary: Reports: no symptoms Neurologic/Psychiatric: Reports: no symptoms Endocrine: Reports: no symptoms Hematologic/Lymphatic: Reports: no symptoms Allergies: Coded Allergies: No Known Allergies (Unverified , 09/04/17) All Systems: reviewed and negative except above Subjective No acute o/n events Pt feeling better. SOB, cough improved. Chest pain resolved. Denies f/c, n/v, d/c, abd pain D/w pt's and daughter. They would like referral to [facility]. CM informed. Daughter also requesting home O2. Objective Last 24 Hour Vital Signs Date Time Temp Pulse Resp B/P (MAP) Pulse Ox O2 Delivery O2 Flow Rate FiO2 09/16/17 06:15 93 112/62 09/16/17 04:00 98.8 92 18 112/62 92 Nasal Cannula 2.0 09/16/17 04:00 93 09/16/17 00:00 98.5 100 22 122/64 100 Nasal Cannula 2.0 09/16/17 00:00 90 09/15/17 22:26 104 125/68 09/15/17 21:00 81 09/15/17 20:20 95 Nasal Cannula 2.0 28 09/15/17 20:20 88 20 Nasal Cannula 2.0 28 09/15/17 20:20 Nasal Cannula 2.0 28 09/15/17 20:00 98.1 104 22 125/68 98 Nasal Cannula 2.0 09/15/17 16:00 97.0 88 22 110/65 93 Nasal Cannula 2.0 09/15/17 16:00 89 09/15/17 13:34 93 Room Air 09/15/17 13:22 95 Room Air 09/15/17 13:21 89 113/67 09/15/17 12:00 97.5 91 24 123/63 94 Nasal Cannula 2.0 09/15/17 12:00 93 09/15/17 11:19 94 22 96 Nasal Cannula 2.0 28 09/15/17 11:10 93 20 94 Nasal Cannula 2.0 28 09/15/17 10:35 92 09/15/17 08:00 93 09/15/17 08:00 97.9 100 20 113/67 96 Nasal Cannula 2.0 09/15/17 07:54 Nasal Cannula 2.0 28 09/15/17 07:54 98 Nasal Cannula 2.0 28 09/15/17 07:53 58 20 Nasal Cannula 2.0 28 Intake and Output 09/15/17 09/16/17 19:00 07:00 Intake Total 360 ml 220 ml Output Total 1750 ml 520 ml Balance -1390 ml -300 ml Intake Oral 360 ml 220 ml Output Urine Total 1750 ml 520 ml # Voids 3 # Bowel Movements 3 Laboratory Tests 09/15/17 08:05: Sodium Level 143, Potassium Level 3.3L, Chloride Level 100, Carbon Dioxide Level 38H, Anion Gap 5, Blood Urea Nitrogen 25H, Creatinine 1.2, Estimat Glomerular Filtration Rate , Glucose Level 138H, Calcium Level 7.9L, Magnesium Level 2.0, Vancomycin Level Trough 8.5 Height (Feet): 5 Height (Inches): 6.00 Weight (Pounds): 204 Objective General: alert, cooperative, no distress, appears stated age Head: normocephalic, without obvious abnormality, atraumatic Eyes: conjunctivae/corneas clear. PERRL, EOM's intact Throat: lips, mucosa, and tongue normal. MMM Neck: supple, symmetrical, trachea midline, and +JVD Lungs: +crackles b/l Heart: regular rate and rhythm, S1, S2 normal, no murmur, click, rub or gallop Abdomen: soft, non-tender, non-distended, bowel sounds normal Extremities: extremities normal, atraumatic, no cyanosis. 1+ bilateral lower extremity edema, left foot wound c/d/i Pulses: 2+ and symmetric Skin: skin color, texture, turgor normal; no rashes or lesions Neurologic: grossly normal, no focal deficits Yovani Mcleod M.D. Sep 16, 2017 07:27
[2017-09-16 08:00] VITALS: BP 125/78
[2017-09-16] MEDS: Eliquis 2.5mg tablet ORAL SCH (09:00)
[2017-09-16] MEDS: Docusate 100mg cap ORAL SCH (09:13)
[2017-09-16] MEDS: Digoxin 0.125mg tab ORAL SCH (09:14)
--- NOTE | 2017-09-16 10:34 | Cardiac Electrophysiology PN ---
Assessment/Plan Assessment/Plan 1. Atrial fibrillation with rapid ventricular response.Controlled rate on digoxin 0.125 mg daily and Cardizem 30 mg t.i.d. On Eliquis 5 mg b.i.d 2. Congestive heart failure due to diastolic dysfunction. Continue Lasix 40 mg IV b.i.d. Echo Nl EF 3. History of coronary artery bypass graft and chest pain. Rule out myocardial infarction After pneumonia is cleared, the patient nuclear stress test that can be done at [facility] by Dr Crespo 4. Pneumonia, on antibiotics per Dr. Davis RENO RN and daughter Subjective Subjective In atrial fib with controlled rate.Daughter at bedside. No chest pain or SOB. Objective Last 24 Hour Vital Signs Date Time Temp Pulse Resp B/P (MAP) Pulse Ox O2 Delivery O2 Flow Rate FiO2 09/16/17 09:14 98 09/16/17 06:15 93 112/62 09/16/17 04:00 98.8 92 18 112/62 92 Nasal Cannula 2.0 09/16/17 04:00 93 09/16/17 00:00 98.5 100 22 122/64 100 Nasal Cannula 2.0 09/16/17 00:00 90 09/15/17 22:26 104 125/68 09/15/17 21:00 81 09/15/17 20:20 95 Nasal Cannula 2.0 28 09/15/17 20:20 88 20 Nasal Cannula 2.0 28 09/15/17 20:20 Nasal Cannula 2.0 28 09/15/17 20:00 98.1 104 22 125/68 98 Nasal Cannula 2.0 09/15/17 16:00 97.0 88 22 110/65 93 Nasal Cannula 2.0 09/15/17 16:00 89 09/15/17 13:34 93 Room Air 09/15/17 13:22 95 Room Air 09/15/17 13:21 89 113/67 09/15/17 12:00 97.5 91 24 123/63 94 Nasal Cannula 2.0 09/15/17 12:00 93 09/15/17 11:19 94 22 96 Nasal Cannula 2.0 28 09/15/17 11:10 93 20 94 Nasal Cannula 2.0 28 09/15/17 10:35 92 Intake and Output 09/15/17 09/16/17 19:00 07:00 Intake Total 360 ml 220 ml Output Total 1750 ml 520 ml Balance -1390 ml -300 ml Intake Oral 360 ml 220 ml Output Urine Total 1750 ml 520 ml # Voids 3 # Bowel Movements 3 Microbiology Date/Time Source Procedure Growth Status 09/13/17 18:55 Sputum Induced Gram Stain - Final Resulted 09/13/17 18:55 Sputum Culture - Preliminary Gram Negative Bacillus 1 Resulted Objective HEAD AND NECK: Shows mild JVD. LUNGS: Decreased breath sounds. CARDIOVASCULAR: Irregularly irregular. S1 and S2 with no gallop or murmur. ABDOMEN: Soft. EXTREMITIES: 1+ pitting edema. LUIS MANUEL PATHAK Sep 16, 2017 10:34
[2017-09-16] MEDS ORDERED: LASIX40 MG ORAL (11:18)
[2017-09-16] MEDS ORDERED: POTASSIUM CHLO20 ME1 ORAL (11:18)
--- NOTE | 2017-09-16 11:19 | Discharge Instructions ---
Discharge Instructions Discharge Instructions Follow up with: Primary medical doctor and cardiology in [address] Newman - [phone] For Congestive Heart Failure Reminder Report to your physician any weight gain of 5 pounds or more in one week. Yovani Mcleod M.D. Sep 16, 2017 11:19
[2017-09-16 12:00] VITALS: BP 100/66
[2017-09-16 12:19] LABS: BASOPHILS % (AUTO) 0.8 % (0.0-2.0); EOSINOPHILS % (AUTO) 2.3 % (0.0-3.0); HEMATOCRIT 34.9 % (42.0-52.0); HEMOGLOBIN 11.3 G/DL (14.2-18.0); LYMPHOCYTES % (AUTO) 17.4 % (20.0-45.0); MEAN CORPUSCULAR VOLUME 93 FL (80-99); MONOCYTES % (AUTO) 13.1 % (1.0-10.0); NEUTROPHILS % (AUTO) 66.4 % (45.0-75.0); PLATELET COUNT 154 K/UL (150-450); RED BLOOD COUNT 3.76 M/UL (4.70-6.10); RED CELL DISTRIBUTION WIDTH 13.1 % (11.6-14.8)
[2017-09-16 13:01] LABS: ANION GAP 6 mmol/L (5-15); BLOOD UREA NITROGEN 23 mg/dL (7-18); CALCIUM 8.4 MG/DL (8.5-10.1); CARBON DIOXIDE 39 MMOL/L (21-32); CHLORIDE 98 MMOL/L (98-107); CREATININE 1.1 MG/DL (0.55-1.30); POTASSIUM 3.5 MMOL/L (3.5-5.1); SODIUM 142 MMOL/L (136-145)
[2017-09-16] MEDS: cefTRIAXone 1 GM in NS 55 ML IVPB SCH (14:30)
[2017-09-16 16:00] VITALS: BP 114/53
[2017-09-16] MEDS ORDERED: Tubing IV Secondary IV ONE (16:45)
--- NOTE | 2017-09-16 17:58 | Pulmonology Progress Note ---
Assessment/Plan Problems: (1) HCAP (healthcare-associated pneumonia) (2) Acute on chronic diastolic (congestive) heart failure (3) CAD s/p CABG (4) HTN (hypertension) Assessment/Plan improving less short of breath continue respiratory treatment titrate fio2 symptomatic treatment. Subjective ROS Limited/Unobtainable: No Constitutional: Reports: no symptoms Allergies: Coded Allergies: No Known Allergies (Unverified , 09/04/17) Objective Last 24 Hour Vital Signs Date Time Temp Pulse Resp B/P (MAP) Pulse Ox O2 Delivery O2 Flow Rate FiO2 09/16/17 16:00 97.2 82 20 114/53 98 Nasal Cannula 2.0 09/16/17 12:00 90 09/16/17 12:00 97.5 89 20 100/66 95 Nasal Cannula 2.0 09/16/17 09:14 98 09/16/17 08:00 97.3 98 20 125/78 95 Nasal Cannula 2.0 09/16/17 08:00 93 09/16/17 06:15 93 112/62 09/16/17 04:00 98.8 92 18 112/62 92 Nasal Cannula 2.0 09/16/17 04:00 93 09/16/17 00:00 98.5 100 22 122/64 100 Nasal Cannula 2.0 09/16/17 00:00 90 09/15/17 22:26 104 125/68 09/15/17 21:00 81 09/15/17 20:20 95 Nasal Cannula 2.0 28 09/15/17 20:20 88 20 Nasal Cannula 2.0 28 09/15/17 20:20 Nasal Cannula 2.0 28 09/15/17 20:00 98.1 104 22 125/68 98 Nasal Cannula 2.0 Intake and Output 09/15/17 09/16/17 19:00 07:00 Intake Total 360 ml 220 ml Output Total 1750 ml 520 ml Balance -1390 ml -300 ml Intake Oral 360 ml 220 ml Output Urine Total 1750 ml 520 ml # Voids 3 # Bowel Movements 3 Objective General Appearance: WD/WN, Lines, tubes and drains: peripheral HEENT: normocephalic, atraumatic Neck: non-tender, normal alignment Respiratory/Chest: chest wall non-tender, lungs clear Cardiovascular/Chest: normal peripheral pulses, normal rate Abdomen: normal bowel sounds Genitourinary/Rectal: normal genital exam Extremities: normal range of motion, slight edema Microbiology Date/Time Source Procedure Growth Status 09/13/17 18:55 Sputum Induced Gram Stain - Final Resulted 09/13/17 18:55 Sputum Culture - Preliminary Gram Negative Bacillus 1 Resulted Laboratory Tests 09/16/17 11:50: White Blood Count 5.0, Red Blood Count 3.76L, Hemoglobin 11.3L, Hematocrit 34.9L , Mean Corpuscular Volume 93, Mean Corpuscular Hemoglobin 30.0, Mean Corpuscular Hemoglobin Concent 32.3, Red Cell Distribution Width 13.1, Platelet Count 154, Mean Platelet Volume 6.0L, Neutrophils (%) (Auto) 66.4, Lymphocytes ( %) (Auto) 17.4L, Monocytes (%) (Auto) 13.1H, Eosinophils (%) (Auto) 2.3, Basophils (%) (Auto) 0.8, Sodium Level 142, Potassium Level 3.5, Chloride Level 98, Carbon Dioxide Level 39H, Anion Gap 6, Blood Urea Nitrogen 23H, Creatinine 1.1, Estimat Glomerular Filtration Rate , Glucose Level 133H, Calcium Level 8.4L TYRA CHRISTOPHER Sep 16, 2017 17:58
--- NOTE | 2017-09-17 08:23 | Discharge Summary ---
Discharge Summary Hospital Course Date of Admission Sep 12, 2017 at 23:51 Date of Discharge Sep 16, 2017 at 16:46 Admitting Diagnosis congestive heart failure Reason for Hospitalization: CHF exacerbation, HCAP HPI 82 year old male with past medical history of chronic afib, CAD s/p CABG, HTN, DM, HLD, recent influenza infection presents with chest pain and SOB. Pt recently admitted 09/04 and discharged 09/08. He was treated for CHF with lasix IV and LLE wound w/ cellulitis w/ IV antibiotics. He was discharged on lasix PO and PO antibiotics. Pt now returns w/ recurrent chest pain described as midsternal constant nonradiating chest tightness with associated SOB and cough productive of white sputum. Symptoms started 2 hours prior to arrival to ER. BLE swelling has improved from prior. Denies f/c, n/v, d/c, abd pain. In ER, pt noted to be visibly uncomfortable, huffing and puffing for air. There was concern for CHF and pneumonia. Pt was given lasix IV, as well as vanco and zosyn in ED. Consultations Cardiology, Pulmonology, Infectious disease Hospital Course Pt was admitted to tele. He was diuresed with lasix IV w/ slow improvement in symptoms. He was treated for pneumonia with vanco and zosyn. On discharge, he was transitioned to augmentin to complete course. Once symptomatically improved , he was discharged home on lasix PO. Discharge physical exam General: alert, cooperative, no distress, appears stated age Head: normocephalic, without obvious abnormality, atraumatic Eyes: conjunctivae/corneas clear. PERRL, EOM's intact Throat: lips, mucosa, and tongue normal. MMM Neck: supple, symmetrical, trachea midline, and no JVD Lungs: clear to auscultation bilaterally Heart: regular rate and rhythm, S1, S2 normal, no murmur, click, rub or gallop Abdomen: soft, non-tender, non-distended, bowel sounds normal Extremities: extremities normal, atraumatic, no cyanosis or edema Pulses: 2+ and symmetric Skin: skin color, texture, turgor normal; +L medial malleolus wound c/d/i Neurologic: grossly normal, no focal deficits Discharge diagnoses: (1) Acute on chronic diastolic (congestive) heart failure ICD Codes: I50.33 - Acute on chronic diastolic (congestive) heart failure SNOMED: 04954305, 133191056 (2) HCAP (healthcare-associated pneumonia) ICD Codes: J18.9 - Pneumonia, unspecified organism SNOMED: 354484332 (3) UTI (urinary tract infection) ICD Codes: N39.0 - Urinary tract infection, site not specified SNOMED: 11645560 (4) Atrial fibrillation with RVR ICD Codes: I48.91 - Unspecified atrial fibrillation SNOMED: 942528799294229 (5) Left medial malleolus ulcer Assessment & Plan: likely venous stasis ulcer (6) CAD s/p CABG (7) HLD (hyperlipidemia) ICD Codes: E78.5 - Hyperlipidemia, unspecified SNOMED: 23200624 (8) HTN (hypertension) ICD Codes: I10 - Essential (primary) hypertension SNOMED: 61439635 (9) Obesity ICD Codes: E66.9 - Obesity, unspecified SNOMED: 173845322 (10) Hypokalemia ICD Codes: E87.6 - Hypokalemia SNOMED: 62787591 Discharge Medications New Medications: Amoxicillin/Potassium Clav 875-125* (Augmentin 875-125 Tablet*) 1 Each Tablet 1 TAB ORAL TWICE A DAY for 5 Days, #10 TAB Digoxin* (Lanoxin*) 125 Mcg Tablet 0.125 MG ORAL DAILY for 30 Days, #30 TAB 1 Refill Diltiazem HCl (Diltiazem 12Hr ER) 60 Mg Cap.er.12h 30 MG ORAL EVERY 8 HOURS for 30 Days, #120 CAP 1 Refill Potassium Chloride* (K-Dur*) 20 Meq Tab.er.prt 40 MEQ ORAL DAILY for 30 Days, #60 TAB Continued Medications: Apixaban (Eliquis) 5 Mg Tablet 5 MG PO BID for 30 Days, #60 TAB 2 Refills Doxycycline Monohydrate (Doxycycline Monohydrate) 100 Mg Tablet 100 MG PO BID for 7 Days, #14 TAB 0 Refills Furosemide* (Lasix*) 40 Mg Tablet 40 MG ORAL EVERY 12 HOURS for 30 Days, #60 TAB Furosemide* (Lasix*) 40 Mg Tablet 40 MG ORAL EVERY 12 HOURS for 30 Days, #60 TAB (This prescription has been renewed) Lansoprazole* (Lansoprazole*) 30 Mg Capsule.dr 30 MG ORAL DAILY for 30 Days, #30 CAP 3 Refills Lubiprostone (Amitiza*) 24 Mcg Capsule 24 MCG ORAL DAILY PRN for Constipation, CAP Lubiprostone (Amitiza*) 24 Mcg Capsule 24 MCG ORAL EVERY 12 HOURS, CAP Metformin Hcl* (Metformin Hcl*) 500 Mg Tablet 500 MG ORAL TWICE A DAY, TAB Tamsulosin Hcl (Tamsulosin Hcl*) 0.4 Mg Cap.er.24h 0.4 MG ORAL BEDTIME, CAP Discontinued Medications: Cephalexin* (Keflex*) 500 Mg Capsule 500 MG ORAL EVERY 6 HOURS for 7 Days, #28 CAP 0 Refills Discharge Condition Upon Discharge: stable Discharge Disposition Patient was discharged to Home with Home Health(06) Discharge Diagnoses: Discharge Instructions Discharge Instructions Follow up with: Primary medical doctor and cardiology in [address] Newman - [phone] Yovani Mcleod M.D. Sep 17, 2017 08:23
--- NOTE | 2017-09-21 11:42 | Diagnostic Imaging Report ---
APPROVED REPORT CPT Code: 36937 Symptoms Comments: Pain and swelling BILATERAL: Common femoral artery waveform analysis is within normal limits at rest. Color flow duplex sonography reveals minimal calcification throughout the superficial femoral, and popliteal arteries. There is no evidence of stenosis or occlusion within these segments. The tibioperoneal trunks were patent. The posterior tibial, anterior tibial and dorsalis pedis arteries are also minimally calcified. Doppler tibial artery waveform analysis are triphasic within normal limits, bilaterally.
--- NOTE | 2017-09-21 11:42 | Diagnostic Imaging Report ---
APPROVED REPORT CPT Code: 10604 Present Symptoms Comments: Swelling BILATERAL: Imaging reveals a patent deep venous system bilaterally. There is no evidence of thrombus within the femoral, popliteal or tibial segments. Doppler indicates normal spontaneous flow within these segments.
== END 2017-09-16 16:46 | disposition home health service (06) | DRG 139 ==
LOC: EMR 19:50 → EDBEDREQ 23:37 → 2E 23:51 → EDBEDREQ 09-13 01:03 → 2E 09-16 01:49
DX: J18.9 Pneumonia, unspecified organism (principal); I50.33 Acute on chronic diastolic (congestive) heart failure; D69.6 Thrombocytopenia, unspecified; I48.2 Chronic atrial fibrillation; L97.329 Non-pressure chronic ulcer of left ankle with unspecified severity; N39.0 Urinary tract infection, site not specified; E78.5 Hyperlipidemia, unspecified; E11.9 Type 2 diabetes mellitus without complications; D64.9 Anemia, unspecified; I11.0 Hypertensive heart disease with heart failure; I25.10 Atherosclerotic heart disease of native coronary artery without angina pectoris; E66.9 Obesity, unspecified; E87.6 Hypokalemia; Z79.01 Long term (current) use of anticoagulants; Z68.32 Body mass index [BMI] 32.0-32.9, adult; Z95.1 Presence of aortocoronary bypass graft; I48.91 Unspecified atrial fibrillation
CPT/HCPCS: 36415; 71045; 80048; 80053; 80162; 80202; 81003; 82550; 82553; 82962; 83605; 83735; 83880; 84100; 84484; 85025; 86710; 87040; 87070; 87086; 87181; 87184; 87205; 93005; 93925; 93970; 94640; 94664; 94760; 99285; J1815; J7620; J8499